=== PATIENT | female | born 1975 | race Caucasian/White ===

== ENCOUNTER → 2018-05-20 14:54 | Outpatient (POV) | payer OTHER, SELFPAY | PROVIDERS: Visit Provider Dermatology | DX: Z00.00 Encounter for general adult medical examination without abnormal findings (principal) ==

== ENCOUNTER → 2018-06-17 08:22 | Outpatient (CLI) | payer OTHER, SELFPAY ==
--- NOTE | 2018-06-17 08:23 | MM_ITS ---
MM Dig screening mamm BI w/CAD ORDERING PHYSICIAN : Teto Ellison MD PATIENT AGE: 42 years GENDER: Female COMPARISON: Previous mammogram March 2016. INDICATION: ITS.REASON: Routine Mammogram Screening 42-year-old with no hormones. Previous ablation.. Noncontributory family history She has had a abscess drainage 2004 right breast. TECHNIQUE: Standard CC and MLO images were obtained. R2 CAD reviewed. FINDINGS: . Moderate breast density bilaterally most evident centrally and towards upper-outer quadrant. RIGHT BREAST:Right breast with no new findings. No dominant mass nor suspicious calcifications. LEFT BREAST:. There is a 11 mm ovoid density which is become evident at the lateral left breast. Likely to 3-4:00 position a recommend 90 degree, MLO and cc spot view to further evaluate margins followed by a left breast ultrasound IMPRESSION: 1.... LEFT BREAST. 11 x 9 mm ovoid density at the lateral left breast..... . Suspect likely cyst at 3-4:00 o'clock position. Recommend additional spot views, with subsequent left breast ultrasound 2.... RIGHT BREAST. Stable.. Unremarkable. Follow-up in one year. BI-RADS Category: 0 Need Additional Imaging Evaluaiton . RECOMMENDED FOLLOW-UP: IMM - IMMEDIATE FOLLOW-UP RECOMMENDED Left breast: additional spot views with left breast ultrasound. (A letter has been sent to the patient regarding results of the study.)
== END ==
PROVIDERS: Family Provider Nurse Practitioner Family; PCP Family Medicine; Visit Provider Nurse Practitioner Obstetrics & Gynecology
DX: Z12.31 Encounter for screening mammogram for malignant neoplasm of breast (principal)
CPT/HCPCS: 77067

== ENCOUNTER → 2018-06-25 15:16 | Outpatient (CLI) | payer OTHER, SELFPAY ==
--- NOTE | 2018-06-25 15:17 | US_ITS ---
MM Dig mamm DX unilat LT CAD, US breast LT complete INDICATION: Old abnormal mammogram ORDERING PHYSICIAN: Teto Ellison MD PATIENT AGE: 42 years COMPARISON: 06/17/2018, 03/25/2016 TECHNIQUE: Problem-solving views performed along with left breast ultrasound FINDINGS: Problem solving views show a persistent asymmetric density in the lateral aspect of the left breast measuring approximately 11 x 6 mm at 3:00 region. The margins are somewhat obscured. This did persist on rolled views. Left breast ultrasound with axilla: No cystic or solid lesions demonstrated with ultrasound. IMPRESSION: Persistent asymmetric density measuring 11 x 6 mm and 3:00 region left breast. Since this is not confirmed to be a cyst by ultrasound, biopsy is recommended by stereotactic approach. Would however, recommend a second look ultrasound before the stereotactic is performed. BI-RADS Category: 4 Suspicious Abnormality-Biopsy Considered RECOMMENDED FOLLOW-UP: BIO - BIOPSY RECOMMENDED (A letter has been sent to the patient regarding results of the study.)
== END ==
PROVIDERS: Family Provider Nurse Practitioner Family; PCP Family Medicine; Visit Provider Nurse Practitioner Obstetrics & Gynecology
DX: Z12.31 Encounter for screening mammogram for malignant neoplasm of breast (principal); R92.2 Inconclusive mammogram
CPT/HCPCS: 76641; 77065

== ENCOUNTER → 2018-07-05 15:04 | Outpatient (POV) | payer OTHER, SELFPAY | PROVIDERS: Family Provider Nurse Practitioner Family; PCP Family Medicine; Visit Provider Physician Assistant | DX: Z00.00 Encounter for general adult medical examination without abnormal findings (principal) ==

== ENCOUNTER → 2018-07-06 09:38 | Outpatient (CLI) | payer OTHER, SELFPAY ==
--- NOTE | 2018-07-06 09:39 | US_ITS ---
US breast LT complete INDICATION: Second look ultrasound, left breast nodule ORDERING PHYSICIAN: Teto Ellison MD PATIENT AGE: 42 years COMPARISON: 06/25/2018 TECHNIQUE: Left breast ultrasound FINDINGS: Previous mammogram demonstrated a 10 x 6 mm nodule in the outer aspect of the left breast. This study was performed as a second look to sure this does not represent a cyst. There is a 4 x 2 mm cyst in the 3:00 position of left breast however this is not concordant with the mammographic findings. No ultrasound abnormalities correspond to the mammographic abnormality. IMPRESSION: Discordant findings. A 3 mm cyst is present at 3:00 with the mammographic abnormality is larger BI-RADS Category: 4 Suspicious Abnormality-Biopsy Considered RECOMMENDED FOLLOW-UP: BIO - BIOPSY RECOMMENDED (A letter has been sent to the patient regarding results of the study.)
== END ==
PROVIDERS: Family Provider Nurse Practitioner Family; PCP Family Medicine; Visit Provider Nurse Practitioner Obstetrics & Gynecology
DX: R92.8 Other abnormal and inconclusive findings on diagnostic imaging of breast (principal)
CPT/HCPCS: 76641

== ENCOUNTER → 2018-07-07 08:53 | Outpatient (CLI) | payer OTHER, SELFPAY ==
--- NOTE | 2018-07-07 | MM_ITS ---
MM stereotactic loc LT, MM clip placement LT ORDERING PHYSICIAN: Teto Ellison MD PATIENT AGE: 43 years Comparison: 06/25/2018 INDICATION: Abnormal mammogram showing indeterminate nodule in the lateral aspect of the left breast PROCEDURE: The patient was given 0.5 mg of Xanax, Lortab 5 mg, and analgesia and minor sedation. The patient was placed on the stereotactic table and the abnormality was localized in the most appropriate projection. The breast was prepped in the routine manner, with sterile prep and the overlying skin anesthetized. A 3 to 4 mm skin incision was performed and the 9 gauge sorus vacuum-assisted core biopsy needle was advanced to the region of the calcification. Pre- and post fire images were obtained. Multiple biopsies were obtained in the region of the mammographic abnormality specifically. Postbiopsy images show the lesion no longer apparent. The patient tolerated the procedure well without complications. Specimen was sent for pathologic analysis. Routine follow-up phone call to patient is to be performed as well. A tiny titanium nonferromagnetic MicroMark was positioned through the mammotome needle into the biopsy site. Pathology: Benign nodular fibrocystic disease. No atypia or malignancy evident IMPRESSION: 1. Successful stereotactic vacuum-assisted core biopsy of the Left breast showing benign findings. 2. Successful placement of a titanium metal MicroMark. 3. No noted complications. Recommend 6 month mammographic follow-up per routine protocol IMPRESSION: Successful removal of described breast calcifications. Left BREAST MAMMOGRAM: Two-view mammogram shows the post surgical defect in the outer aspect of the left breast with the clip in place. The nodule previously noted is smaller.. IMPRESSION: 1. Adequate placement of the MicroMark clip postbiopsy. 2. Postbiopsy changes within the leftbreast.
== END ==
PROVIDERS: Family Provider Nurse Practitioner Family; PCP Family Medicine; Visit Provider Nurse Practitioner Obstetrics & Gynecology
DX: R92.8 Other abnormal and inconclusive findings on diagnostic imaging of breast (principal)
CPT/HCPCS: 19081; 77065

== ENCOUNTER → 2018-08-30 16:47 | Outpatient (CLI) | payer OTHER, SELFPAY ==
[2018-08-30 18:43] LABS: Free Thyroxine Index 1.9 ug/dL (5.93-13.13); T4 (Thyroxine) 5.7 ug/dl (4.7-13.3); Triiodothryronine (T3) Uptake 34 % (31-39)
[2018-09-03 18:40] LABS: Calcitonin <2.0 pg/mL (0.0-5.0)
== END ==
PROVIDERS: Family Provider Nurse Practitioner Family; PCP Family Medicine; Visit Provider Otolaryngology
DX: E01.0 Iodine-deficiency related diffuse (endemic) goiter (principal)
CPT/HCPCS: 36415; 82308; 84436; 84443; 84479

== ENCOUNTER → 2018-09-07 13:28 | Outpatient (CLI) | payer OTHER, SELFPAY ==
--- NOTE | 2018-09-07 13:30 | US_ITS ---
US thyroid HISTORY: Follow-up enlarged thyroid/thyroid nodules ITS.REASON: enlarged thyroid ORDERING PHYSICIAN: Tera Pabon MD PATIENT AGE: 43 years Comparison: None FINDINGS: The right lobe is 4.4 x 1.3 x 2.1 cm. 3 mm isoechoic nodule upper pole medially. 4 x 3 mm hypoechoic nodule mid polar region Solid appearing 12 x 11 mm nodule lower pole probably unchanged but not as well demonstrated on the previous study The left lobe is 4.2 x 1.2 x 1.8 cm. Slightly hypoechoic 9 x 7 mm nodule along the posterior aspect of the left lobe possibly related to parathyroid gland unchanged. 3 mm hypoechoic nodule in the isthmus on the left nonspecific IMPRESSION: Bilateral thyroid nodules as described above with mildly enlarged thyroid gland. The nodules are low level of suspicion for malignancy.
== END ==
PROVIDERS: Family Provider Nurse Practitioner Family; PCP Family Medicine; Visit Provider Otolaryngology
DX: E01.0 Iodine-deficiency related diffuse (endemic) goiter (principal)
CPT/HCPCS: 76536

== ENCOUNTER 2019-02-10 09:27 | Outpatient (CLI) | payer OTHER, SELFPAY ==
--- NOTE | 2019-02-10 09:40 | PC.NURSE ---
HERE FOR EMPLOYEE PHYSICAL REQUIRED BY [facility]
== END 2019-02-10 09:48 | disposition home or self-care (01) ==
LOC: UTC.OUT 09:27
PROVIDERS: PCP Family Medicine; Visit Provider Nurse Practitioner
DX: Z00.00 Encounter for general adult medical examination without abnormal findings (principal)

== ENCOUNTER → 2019-05-31 10:56 | Outpatient (CLI) | payer OTHER, SELFPAY | PROVIDERS: Visit Provider Nurse Practitioner Obstetrics & Gynecology | DX: N39.0 Urinary tract infection, site not specified (principal) | CPT/HCPCS: 87086; 87088; 87186 ==

== ENCOUNTER → 2019-09-20 12:52 | Outpatient (CLI) | payer OTHER, SELFPAY ==
--- NOTE | 2019-09-20 12:54 | US_ITS ---
PROCEDURE: US THYROID CLINICAL INDICATION: goiter Follow-up thyroid nodules, enlarged thyroid gland COMPARISON: THY US thyroid from 09/07/2018 FINDINGS: Right lobe: 4.6 x 1.5 x 1.6 cm. 1 cm slightly hypoechoic well-circumscribed nodule in the lower pole unchanged. Small cystic area in the mid polar region at 4 mm unchanged. Small cystic area in the left aspect of the isthmus benign-appearing. Left lobe is 4.3 x 1.3 x 1.5 cm. 1 cm isoechoic nodule lower pole unchanged. No new nodules evident. IMPRESSION: The enlarged thyroid gland with bilateral nodules which are stable. Dictated by: Jorgito Lopez MD 09/20/2019 16:39 Electronically signed by Jorgito Lopez MD in [place] 09/20/2019 16:39
== END ==
PROVIDERS: PCP Family Medicine; Visit Provider Otolaryngology
DX: E01.0 Iodine-deficiency related diffuse (endemic) goiter (principal)
CPT/HCPCS: 76536

== ENCOUNTER → 2019-09-22 15:56 | Outpatient (CLI) | payer OTHER, SELFPAY ==
[2019-09-22 15:58] LABS: Microscopic, Urine URINE MICROSCOPIC (MICROSCOPIC)
[2019-09-22 16:07] LABS: Appearance,Urine CLEAR (Clear); Bilirubin,Urine Negative (Negative); Blood, Urine Negative (Negative); Color,Urine YELLOW (Yellow); Glucose,Urine (UA) Negative (Negative); Ketones,Urine Negative (Negative); Leukocyte Esterase,Urine TRACE (Negative); Nitrate,Urine POSITIVE (Negative); PH,Urine 6.5 (5.0-8.5); Protein,Urine Negative (Negative); Specific Gravity, Urine 1.025 (1.005-1.030); Urobilinogen,Urine 0.2 EU/dl (0.2)
[2019-09-22 16:18] LABS: Bacteria,Urine 2+ /lpf; RBC,Urine Occasional #/hpf (0-3); WBC,Urine 50-100 #/hpf (0-3)
== END ==
PROVIDERS: Visit Provider Nurse Practitioner
DX: N39.0 Urinary tract infection, site not specified (principal)
CPT/HCPCS: 81001; 87086; 87088; 87186

== ENCOUNTER → 2019-10-04 10:08 | Outpatient (CLI) | payer OTHER, SELFPAY ==
--- NOTE | 2019-10-04 10:11 | US_ITS ---
PROCEDURE: US TRANSVAGINAL CLINICAL INDICATION: US T/V-pelvic pain Pelvic pain and pressure COMPARISON: No exams were available for comparison FINDINGS: The uterus is enlarged at 11.5 x 5 x 6.6 cm. Combined endometrial thickness is 6 mm. There heterogeneous echogenicity of the endometrium with some cystic areas measuring up to 13 mm within the endometrium with skip areas noted. Left ovary is 2.7 x 2.3 cm. Blood flow is present. Right ovary is 2.7 x 1.9 cm. Blood flow noted. There is a small amount of fluid in the cul-de-sac IMPRESSION: Enlarged uterus with post ablation changes and small amount of fluid in the cul-de-sac Dictated by: Jorgito Lopez MD 10/04/2019 18:24 Electronically signed by Jorgito Lopez MD in [place] 10/06/2019 05:18
== END ==
PROVIDERS: PCP Family Medicine; Visit Provider Nurse Practitioner Obstetrics & Gynecology
DX: R10.2 Pelvic and perineal pain (principal)
CPT/HCPCS: 76830

== ENCOUNTER 2020-05-26 14:13 | Emergency (ER) | payer OTHER, SELFPAY ==
[2020-05-26 15:00] VITALS: BP 117/86; PULSE 80; RESP 20; TEMP 36.8; O2SAT 98; BMI 34.9
[2020-05-26 15:03] LABS: UTC Strep Screen (Rapid) Negative (Negative)
--- NOTE | 2020-05-26 15:12 | HMH.EDUTC ---
[facility] – [place] Disposition Clinical Impression: Nausea and vomiting Qualifiers: Vomiting type: unspecified Vomiting Intractability: unspecified Qualified Code(s): R11.2 - Nausea with vomiting, unspecified Sinusitis Qualifiers: Sinusitis location: unspecified location Chronicity: unspecified Qualified Code(s): J32.9 - Chronic sinusitis, unspecified Disposition: Home, Self-Care Condition on Discharge: Good Instructions: Sore Throat, Sinusitis, DI for Sinusitis, DI for Nausea -- Adult, Nausea and Vomiting-Adult, Preventing the Spread of Coronavirus Discharge Instructions, Sinus Headache, DI for Migraine Additional Instructions: ? Drink extra fluids with and between meals. If you have difficulty drinking, try very small amounts of water or suck on ice chips. ? Avoid fruit juices, as these do not replace minerals and can actually increase diarrhea. ? Children and adults can use sports drinks to replenish electrolytes. Younger children and infants should use products formulated for children, like oral rehydration solutions. ? Eat food in small amounts and let your stomach recover. ? Get lots of rest. You may feel tired or weak. ? No greasy or fried foods for the next 24-48 hours BRAT diet Bananas Rice Apples and [place] ? Make sure to drink plenty of liquids ? Return if needed ? Straight to ER if any life threatening symptoms ? You was given an outpatient order for diarrhea panel, please collect specimen and bring back to outpatient lab then call back to the [facility] or follow up with family doctor for results ? Follow up with family doctor in the next 48-72 hours if no improvement or any worsening of symptoms You was given handout for instructions for Quarantine while awaiting your COVID19 test results please follow and self Quarantine. You can call back to the [facility] tomorrow to see if your results are back if not then call back on Thursday NO work until negative result If your result is positive then follow the positive result instructions and no work until negative test *Monitor Temp, Over the counter Motrin or Tylenol as directed/as needed Tylenol every 4 hours and Motrin every 6 hours (as long as your family doctor has told you that you can take it) for fever or pain. and straight to ER if unable to lower temp less than 101.0 after medication given *Warm salt water gargles may help to soothe the throat *Throat Lozenges *Warm fluids like tea with honey may help to soothe the throat *Sleep elevated *Humidifier/Vaporizer *Flonase 2 sprays in each nostril daily but be aware that it may take 2-3 days before you notice improvement Your throat swab was sent for culture. Those results are typically sent to your primary care. Be sure to follow up in 2-3 days with your family doctor/primary care physician if no improvement so they can review those result and treat if necessary. If you don?t have a primary care doctor, I recommend you get one but in the mean time, you will have to return to a walk in clinic Follow up IMMEDIATELY for new or worsening symptoms or no Noticeable improvement over the next 48-72 hours. 911 for difficulty breathing or swallowing Prescriptions: Fluticasone Propionate [Flonase 50mcg nasal spray 16gm] 1 - 2 spr NS DAILY #1 bottle Transmission Status: Received by [facility] Promethazine HCl [Phenergan 12.5mg tablet] 12.5 mg PO Q6H PRN #6 tab PRN Reason: Nausea Transmission Status: Received by [facility] Azithromycin [Z-Elton 250mg Tab] 250 mg PO DIRECTED #6 tab Transmission Status: Received by [facility] Referrals: Dale Avila MD [Primary Care Provider] - As needed Forms: Work/School Release Time of Disposition: 15:31 Medical Decision Making - Piotr Inquiry Pt receiving controlled substance: No Piotr was queried for this patient: No Vital Signs: 05/26/20 15:00 Temperature 98.2 F Temperature Source Oral Pulse Rate [Right Brachial] 80 Respiratory Rate 20 Blood Pressure [Right Arm] 117/86 Blood Pres
[2020-05-26 15:48] VITALS: BP 117/86; PULSE 80; RESP 20; TEMP 36.8; O2SAT 98
[2020-05-27 16:34] LABS: Covid-19 Nasal PCR Sendout UK Not Detected
== END 2020-05-26 15:50 | disposition home or self-care (01) ==
PROVIDERS: Emergency Provider Nurse Practitioner; PCP Family Medicine
DX: J32.9 Chronic sinusitis, unspecified (principal); F41.9 Anxiety disorder, unspecified; Z79.899 Other long term (current) drug therapy; Z88.0 Allergy status to penicillin; Z88.1 Allergy status to other antibiotic agents; Z90.09 Acquired absence of other part of head and neck; Z90.49 Acquired absence of other specified parts of digestive tract
CPT/HCPCS: 87880; 96372; 99202; U0003

== ENCOUNTER → 2020-06-19 08:11 | Outpatient (POV) | payer OTHER, SELFPAY | PROVIDERS: Visit Provider Dermatology | DX: Z00.00 Encounter for general adult medical examination without abnormal findings (principal) ==

== ENCOUNTER → 2020-06-19 11:07 | Outpatient (CLI) | payer OTHER, SELFPAY ==
--- NOTE | 2020-06-19 11:09 | XR_ITS ---
PROCEDURE: XR HAND LT MIN 3V CLINICAL INDICATION: finger pain COMPARISON: No exams were available for comparison FINDINGS: No fracture or dislocation. No lytic or blastic change. There is normal mineralization. The joint spaces are well-preserved. No significant degenerative/arthritic changes. No erosive changes evident. Other findings:There is mild lateral subluxation at the base of the 1st metacarpal. IMPRESSION: Mild lateral subluxation base of 1st metacarpal otherwise negative Dictated b Jorgito Lopez MD 06/19/2020 14:40 Jorgito Lopez MD in [place] 06/19/2020 14:40
--- NOTE | 2020-06-19 11:09 | XR_ITS ---
PROCEDURE: XR WRIST LT MIN 3V CLINICAL INDICATION: wrist pain COMPARISON: No exams were available for comparison FINDINGS: No fracture or dislocation. No lytic or blastic change. There is normal mineralization. There are mild osteoarthritic changes at the 1st metacarpal-carpal joint with minimal anterior subluxation of the 1st metacarpal. There are small well-circumscribed calcific densities lateral to the 1st metacarpal-carpal joint. There is mild prominence the scapholunate space Other findings:None. IMPRESSION: Degenerative changes 1st metacarpal-carpal junction. Mild prominence scapholunate space which could be seen with scapholunate ligament injury. Dictated b Jorgito Lopez MD 06/19/2020 14:39 Jorgito Lopez MD in [place] 06/19/2020 14:39
--- NOTE | 2020-06-19 11:09 | XR_ITS ---
PROCEDURE: XR WRIST RT MIN 3V CLINICAL INDICATION: wrist pain COMPARISON: No exams were available for comparison FINDINGS: No fracture or dislocation. No lytic or blastic change. There is normal mineralization. There are mild osteoarthritic changes at the 1st metacarpal-carpal joint Other findings:None. IMPRESSION: No acute findings. Mild degenerative changes 1st metacarpal carpal junction. There are small calcific densities at this region consistent with loose bodies or calcific debris Dictated b Jorgito Lopez MD 06/19/2020 14:41 Jorgito Lopez MD in [place] 06/19/2020 14:41
--- NOTE | 2020-06-19 11:09 | XR_ITS ---
PROCEDURE: XR HAND RT MIN 3V CLINICAL INDICATION: finger pain COMPARISON: No exams were available for comparison FINDINGS: No fracture or dislocation. No lytic or blastic change. There is normal mineralization. Mild degenerative changes 1st metacarpal-carpal joint Other findings:None. IMPRESSION: Mild degenerative changes 1st metacarpal-carpal joint otherwise negative Dictated b Jorgito Lopez MD 06/19/2020 14:42 Jorgito Lopez MD in [place] 06/19/2020 14:42
== END ==
PROVIDERS: PCP Family Medicine; Visit Provider Orthopaedic Surgery
DX: M79.642 Pain in left hand (principal); M79.641 Pain in right hand; M25.532 Pain in left wrist; M25.531 Pain in right wrist; M79.646 Pain in unspecified finger(s); M65.4 Radial styloid tenosynovitis [de Quervain]
CPT/HCPCS: 73110; 73130

== ENCOUNTER → 2020-07-18 14:00 | Outpatient (CLI) | payer OTHER, SELFPAY ==
[2020-07-21 01:55] LABS: Covid-19 Nasal PCR Sendout Lex Not Detected
== END ==
PROVIDERS: PCP Family Medicine; Visit Provider Internal Medicine Adolescent Medicine
DX: Z03.818 Encounter for observation for suspected exposure to other biological agents ruled out (principal)
CPT/HCPCS: U0004

== ENCOUNTER → 2020-08-03 07:59 | Outpatient (CLI) | payer OTHER, SELFPAY ==
--- NOTE | 2020-08-03 08:01 | MM_ITS ---
PROCEDURE: MM DIG SCREENING MAMM BI W/CAD Digital Breast Tomosynthesis Included CLINICAL INDICATION: SCREENING There is no personal or family history of breast cancer. She has had previous abscess drainage left there is no suspicious lesion and no suspicious microcalcifications. Breast COMPARISON: MG SCBI MM Dig screening mamm BI w/CAD from 06/17/2018 MG DXLT MM Dig mamm DX unilat LT CAD from 06/25/2018 MG STLT MM stereotactic loc LT from 07/07/2018 TECHNIQUE: Standard CC and MLO images and 3D Tomosynthesis was obtained. R2 CAD reviewed. FINDINGS: Scattered fibroglandular densities are seen in both breasts on a background of fatty breast parenchyma. There is probable surgical clip left breast. There is no suspicious lesion and no suspicious microcalcifications. IMPRESSION: Fibrofatty parenchyma with no suspicious lesions seen BI-RAD Category: 2 Benign Finding(s) FOLLOW-UP: 1YR 1 Year Follow-up (A letter has been sent to the patient regarding results of the study.) Dictated by: Dr. Dipak Hughes MD 08/03/2020 14:21 Dr. Dipak Hughes MD in [place] 08/03/2020 14:21
== END ==
PROVIDERS: PCP Family Medicine; Visit Provider Nurse Practitioner Obstetrics & Gynecology
DX: Z12.31 Encounter for screening mammogram for malignant neoplasm of breast (principal)
CPT/HCPCS: 77063; 77067

== ENCOUNTER → 2020-08-20 17:05 | Outpatient (CLI) | payer OTHER, SELFPAY ==
[2020-08-20 17:30] LABS: Basophils # 0.1 K/mm3 (0-0.2); Basophils % 0.7 % (0.1-2.0); Eosinophils # 0.1 K/mm3 (0.0-0.4); Eosinophils % 1.9 % (0.1-12.0); Hematocrit 38.3 % (37.0-47.0); Hemoglobin 13.1 g/dL (12.2-16.2); Mean Corpuscular HGB Conc 34.2 g/dL (31.8-35.4); Mean Corpuscular Hemoglobin 31.7 pg (27.0-31.2); Mean Corpuscular Volume 92.7 fl (81-99); Mean Platelet Volume 8.9 fl (7.4-10.4); Monocytes # 0.4 K/mm3 (0.1-1.0); Monocytes % 6.6 % (1.7-9.3); Neutrophils # 3.1 K/mm3 (1.8-7.8); Neutrophils % 45.8 % (37.0-80.0); Platelet Count 235 K/mm3 (142-424); Red Blood Count 4.14 M/mm3 (4.20-5.40); White Blood Count 6.7 K/mm3 (4.8-10.8)
[2020-08-20 18:13] LABS: Triiodothryronine (T3) Uptake 30 % (23.5-40.5)
[2020-08-20 18:14] LABS: Free Thyroxine Index 1.6 ug/dL (5.93-13.13); T4 (Thyroxine) 5.4 ug/dl (5.53-11.0)
[2020-08-20 18:28] LABS: Chloride 103 mmol/L (98-107); Sodium 138 mmol/L (136-145)
[2020-08-20 18:29] LABS: Potassium 4.4 mmoL/L (3.5-5.1)
[2020-08-20 18:31] LABS: Alanine Aminotransferase 17 U/L (12-78); Alkaline Phosphatase 71 U/L (38-126); Aspartate Amino Transferase 26 U/L (14-36); Bilirubin,Total 0.3 mg/dl (0.2-1.3); Blood Urea Nitrogen 14 mg/dl (7-17); Estimated Glomerular Filt Rate 90 ml/min (>60); GFR (African American) 109 ML/MIN (>60)
[2020-08-20 18:32] LABS: Albumin Level 3.8 g/dl (3.5-5.0); Albumin/Globulin Ratio 1.4 (1.1-1.8); Anion Gap 10.4 mEq/L (5-15); Calcium 8.7 mg/dl (8.4-10.2); Carbon Dioxide 29 mmol/L (22.0-30.0); Globulin 2.7 g/dL (1.3-3.2); Glucose 93 mg/dl (74-100); Total Protein,Serum 6.5 g/dl (6.3-8.2)
[2020-08-22 13:19] LABS: Estradiol 72.3 pg/mL (.); FSH 2.5 mIU/mL (.); LH 1.7 mIU/mL (.)
== END ==
PROVIDERS: Visit Provider Nurse Practitioner Obstetrics & Gynecology
DX: Z01.419 Encounter for gynecological examination (general) (routine) without abnormal findings (principal); N95.1 Menopausal and female climacteric states
CPT/HCPCS: 36415; 80053; 82670; 83001; 83002; 84436; 84443; 84479; 85025

== ENCOUNTER → 2020-09-04 11:26 | Outpatient (POV) | payer OTHER, SELFPAY | PROVIDERS: Visit Provider Otolaryngology | DX: Z00.00 Encounter for general adult medical examination without abnormal findings (principal) ==

== ENCOUNTER → 2020-09-25 12:31 | Outpatient (CLI) | payer OTHER, SELFPAY ==
[2020-09-25 18:29] LABS: Coronavirus 19 IgG Antibody Negative (Negative); Coronavirus 19 IgM Antibody Negative (Negative)
== END ==
PROVIDERS: Visit Provider Nurse Practitioner Obstetrics & Gynecology
DX: Z03.818 Encounter for observation for suspected exposure to other biological agents ruled out (principal)
CPT/HCPCS: 36415; 86328

== ENCOUNTER 2020-09-26 08:10 | Inpatient (IN) | payer OTHER, SELFPAY ==
[2020-09-26] VITALS (10 sets, daily range): BP systolic 95–159; BP diastolic 50–85; PULSE 59–89; RESP 14–19; TEMP 36.7–37.1; O2SAT 86–98; BMI 36.0; BMI 36.9
--- NOTE | 2020-09-26 08:29 | CT_ITS ---
PROCEDURE: CT ABDOMEN PELVIS W CON CLINICAL INDICATION: LLQ abd pain Left lower quadrant abdominal COMPARISON: CT ABDPELW CT ABD PELVIS W/ CONTRAST from 05/14/2015 US US TRANSVAGINAL from 09/26/2020 TECHNIQUE: IV Contrast: 75ML Isovue 370 Oral Contrast None Axial images obtained with sagittal and coronal reformats. All CT scans at the facility use one or more dose reduction, viz: automated exposure control, ma/kV adjustment per patient size (including targeted exams where dose is matched to indication, i.e. head), or iterative reconstruction technique. FINDINGS: LOWER THORAX: There is mild scarring in the right middle lobe. ABDOMEN & PELVIS: A bilobular hypodensity is present in the right hepatic lobe at 13 mm. This has increased in size previously measuring 7 mm. This is indeterminate and may be better evaluated with nonemergent MRI of the liver with hemangioma protocol. The spleen, adrenal glands, pancreas, have an unremarkable appearance. There are small bilateral renal cortical cysts present. No renal or ureteral calculi. No hydronephrosis. There are few small periaortic lymph nodes. These are nonspecific and not significantly changed. No intestinal obstruction or free air. There is a small umbilical hernia which contains fat. Small mesenteric and right lower quadrant nodes are present no evidence of appendicitis. There is focal thickening of the proximal sigmoid colon in the left lower quadrant with stranding of the pericolic fat with associated diverticula consistent with acute diverticulitis. No abscess is apparent. There is a small gas collection in this region of diverticulitis and may only represent gas within a diverticulum versus a contained area of perforation. This is on image number 90 series 3. No distant free air is evident. There is a 4.3 x 4.1 cm cystic area in the left adnexa consistent with an ovarian cyst. This is however immediately inferior to the area of diverticulitis. An abscess is felt to be less likely due to the simple appearance of the cystic area. Follow-up is suggested for confirmation. The cervix is somewhat prominent as before. There is a small amount fluid in the pelvis.. No acute bony findings are evident. IMPRESSION: 1. Acute diverticulitis of the sigmoid colon in the left lower quadrant. There is a small collection of air at this region which may only be due to air within the inflamed diverticulum versus a small contained perforation. No obvious abscess. No distant free air. 2. 4 cm left adnexal cyst immediately inferior to the area of diverticulitis consistent with an ovarian cyst. Abscess is felt to be less likely. Ultrasound confirms that this is represents a ovarian cyst. Follow-up is suggested to confirm stability or resolution. 3. Prominent cervix. 4. Indeterminate right hepatic lesion which is increased in size. Nonemergent MRI with hemangioma protocol may provide further evaluation Dictated by: Jorgito Lopez MD 09/26/2020 10:18 Jorgito Lopez MD in [place] 09/26/2020 10:18
[2020-09-26 08:34] LABS: Microscopic, Urine URINE MICROSCOPIC (MICROSCOPIC)
[2020-09-26 08:36] LABS: Appearance,Urine CLEAR (Clear); Bilirubin,Urine Negative (Negative); Blood, Urine TRACE-L (Negative); Color,Urine YELLOW (Yellow); Glucose,Urine (UA) Negative (Negative); Ketones,Urine Negative (Negative); Leukocyte Esterase,Urine Negative (Negative); Nitrate,Urine POSITIVE (Negative); Protein,Urine Negative (Negative); Specific Gravity, Urine 1.025 (1.005-1.030); Urobilinogen,Urine 0.2 EU/dl (0.2)
[2020-09-26 08:38] LABS: Urine Pregnancy, HCG Qual. Negative (Negative)
--- NOTE | 2020-09-26 08:40 | HMH.EDGENADL ---
ED Disposition Clinical Impression: Sigmoid diverticulitis, Left ovarian cyst Disposition: Admitted as Observation Condition on Discharge: Fair - Critical Care Critical Care Time: No Attestation: On 09/26/20, the high probability of a clinically significant, sudden or life threatening deterioration of the following system(s) required my full and direct attention, intervention and personal management. The time I documented below is in addition to time spent performing reported procedures but includes the following listed in this critical care notation. Medical Decision Making - Medical Records Medical records reviewed: Yes: I reviewed the patient's medical records. - Piotr Inquiry Pt receiving controlled substance: Yes Piotr was queried for this patient: Yes Reference #:: [id number] Risks and benefits of using a controlled substance: were discussed with pt by me Comment: 0 rxs. Vital Signs: 09/26/20 08:13 09/26/20 08:56 09/26/20 10:11 Temperature 98.8 F Temperature Source Oral Pulse Rate [Right Radial] 89 76 68 Respiratory Rate 16 18 18 Blood Pressure [Right Arm] 152/73 H 129/78 117/74 Blood Pressure Mean [Right Arm] 99 95 88 Blood Pressure Source [Right Arm] Automatic Cuff Automatic Cuff Automatic Cuff Blood Pressure Position [Right Arm] Sitting Sitting Sitting 02 Sat by Pulse Oximetry 97 97 96 Oxygen Delivery Method Room Air Room Air Room Air 09/26/20 10:39 09/26/20 11:36 Temperature Temperature Source Pulse Rate [Right Radial] 66 71 Respiratory Rate 18 18 Blood Pressure [Right Arm] 126/81 159/85 H Blood Pressure Mean [Right Arm] 96 109 Blood Pressure Source [Right Arm] Automatic Cuff Automatic Cuff Blood Pressure Position [Right Arm] Sitting 02 Sat by Pulse Oximetry 96 98 Oxygen Delivery Method Room Air Room Air - Lab Data Lab results reviewed: Yes: I reviewed the patient's lab results. Lab Results 09/26/20 08:15: Urine Color Yellow, Urine Appearance Clear, Urine pH 6.0, Ur Specific [place] 1.025, Urine Protein Negative, Urine Glucose (UA) Negative, Urine Ketones Negative, Urine Blood Trace-l, Urine Nitrate Positive, Urine Bilirubin Negative, Urine Urobilinogen 0.2, Ur Leukocyte Esterase Negative, Urine RBC 5-10, Urine WBC 3-5, Ur Squamous Epith Cells 3-5, Urine Bacteria 2+ 09/26/20 08:15: Urine HCG, Qual Negative 09/26/20 08:30: WBC 9.3, RBC 4.27, Hgb 12.6, Hct 39.4, MCV 92.1, MCH 29.4, MCHC 31.9, RDW 12.7, Plt Count 225, MPV 8.3, Neut % (Auto) 71.6, Lymph % (Auto) 20.8, [place] % (Auto) 5.9, Eos % (Auto) 1.4, Baso % (Auto) 0.3, Neut # (Auto) 6.7, Lymph # (Auto) 1.9, [place] # (Auto) 0.6, Eos # (Auto) 0.1, Baso # (Auto) 0.0 09/26/20 08:30: Sodium 138, Potassium 4.0, Chloride 106, Carbon Dioxide 25, Anion Gap 11.0, BUN 10, Creatinine 0.60, Estimated Creat Clear 178, Estimated GFR 108, Est GFR ( Amer) 131, Glucose 105 H, Calcium 8.4, Total Bilirubin 0.6, AST 32, ALT 21, Alkaline Phosphatase 84, Total Protein 7.1, Albumin 4.0, Globulin 3.1, Albumin/Globulin Ratio 1.3, Amylase 62 09/26/20 08:30: Lipase 54 Result diagrams: 09/26/20 08:30 09/26/20 08:30 Orders (Tests/Meds): ED MEDICATIONS Generic Name Dose Route Start Last Admin Trade Name Freq PRN Reason Stop Dose Admin Metronidazole 500 mg in 100 mls @ 100 mls/hr 09/26/20 10:30 09/26/20 10:31 Flagyl 500mg/100ml Ivpb IV 10/10/20 10:29 100 mls/hr Q8H KELLIE Administration Protocol Levofloxacin/Dextrose 750 mg in 150 mls @ 100 mls/hr 09/26/20 10:30 09/26/20 11:06 Levofloxacin 750mg/150ml Premix IV 10/10/20 10:29 100 mls/hr Q24H KELLIE Administration Protocol Sodium Chloride 8 ml 09/26/20 11:43 Sodium Chloride 0.9% 10ml Vial IV 10/26/20 11:42 NEEDED PRN dilute famotidine Discontinued Medications Generic Name Dose Route Start Last Admin Trade Name Freq PRN Reason Stop Dose Admin Belladonna Alkaloids 60 ml 09/26/20 11:43 Gi Cocktail 60ml Udc PO 09/26/20 11:44 ONCE ONE F
[2020-09-26 08:44] LABS: Bacteria,Urine 2+ /lpf
[2020-09-26 08:45] LABS: Basophils % 0.3 % (0.1-2.0); Eosinophils # 0.1 K/mm3 (0.0-0.4); Eosinophils % 1.4 % (0.1-12.0); Hematocrit 39.4 % (37.0-47.0); Hemoglobin 12.6 g/dL (12.2-16.2); Lymphocytes # 1.9 K/mm3 (0.7-4.5); Lymphocytes % 20.8 % (10-50); Mean Corpuscular HGB Conc 31.9 g/dL (31.8-35.4); Mean Corpuscular Hemoglobin 29.4 pg (27.0-31.2); Mean Corpuscular Volume 92.1 fl (81-99); Mean Platelet Volume 8.3 fl (7.4-10.4); Monocytes # 0.6 K/mm3 (0.1-1.0); Monocytes % 5.9 % (1.7-9.3); Neutrophils # 6.7 K/mm3 (1.8-7.8); Neutrophils % 71.6 % (37.0-80.0); Platelet Count 225 K/mm3 (142-424); Red Blood Count 4.27 M/mm3 (4.20-5.40); Red Cell Distribution Width 12.7 % (11.5-17.5); White Blood Count 9.3 K/mm3 (4.8-10.8)
--- NOTE | 2020-09-26 08:47 | PC.NURSE ---
per ER MD he wants pt to have transvaginal ultrasound that was ordered for today as outpatient and then for pt to have CT scan abd/pelvis with IV contrast. Notified rad staff of this, spoke with Camryn
[2020-09-26 08:52] LABS: Chloride 106 mmol/L (98-107); Sodium 138 mmol/L (136-145)
--- NOTE | 2020-09-26 08:52 | US_ITS ---
PROCEDURE: US TRANSVAGINAL CLINICAL INDICATION: llq abd pain COMPARISON: US US TRANSVAGINAL from 10/04/2019 FINDINGS: UTERUS: 11cm x 6cmx 5cm with a combined endometrial thickness of 6.3mm LEFT OVARY: [id number] with a volume of 41.4ml. RIGHT OVARY: [id number] with a volume of 3.9ml. scar is noted along the uterus anteriorly. There is a 4 x 3 cm left ovarian cyst which appears simple. There is an area of heterogeneous echogenicity in the uterine fundus on the right suggesting a small fibroid at 2.5 cm. No cul-de-sac fluid evident. IMPRESSION: 1. Enlarged uterus with possible fibroid. 2. 4 cm left ovarian cyst. Dictated by: Jorgito Lopez MD 09/26/2020 12:13 Jorgito Lopez MD in [place] 09/26/2020 12:13
[2020-09-26 08:55] LABS: Alanine Aminotransferase 21 U/L (12-78); Albumin/Globulin Ratio 1.3 (1.1-1.8); Alkaline Phosphatase 84 U/L (38-126); Amylase 62 U/L (30-110); Aspartate Amino Transferase 32 U/L (14-36); Bilirubin,Total 0.6 mg/dl (0.2-1.3); Blood Urea Nitrogen 10 mg/dl (7-17); Calcium 8.4 mg/dl (8.4-10.2); Carbon Dioxide 25 mmol/L (22.0-30.0); Creatinine Clearance Estimated 178 mL/min (50-200); Estimated Glomerular Filt Rate 108 ml/min (>60); GFR (African American) 131 ML/MIN (>60); Globulin 3.1 g/dL (1.3-3.2); Glucose 105 mg/dl (74-100); Total Protein,Serum 7.1 g/dl (6.3-8.2)
[2020-09-26 08:56] LABS: Lipase 54 U/L (23-300)
--- NOTE | 2020-09-26 08:57 | PC.NURSE ---
pt to radiology
--- NOTE | 2020-09-26 09:44 | PC.NURSE ---
pt return from radiology
--- NOTE | 2020-09-26 10:31 | PC.NURSE ---
dr fofana consulting with dr osei concerning patient and ultrasound/ct findings.
--- NOTE | 2020-09-26 10:38 | PC.NURSE ---
Dr Lewis consulting with Dr Ellison concerning ultrasound/CT findings
--- NOTE | 2020-09-26 10:38 | PC.NURSE ---
Dr Lewis spoke with Dr Ellison
--- NOTE | 2020-09-26 10:57 | PC.NURSE ---
notified ER MD pt reporting Ketorlac not helping with her pain. ER reports he will place orders for pt.
--- NOTE | 2020-09-26 11:31 | PC.NURSE ---
entered room to check on pt, pt sitting up on the of the bed, reporting pain is worse, pt states I feel terrible , pt reports pain is not in epigastric area, states pain feels like a big ball of gas . Notified ER MD, ER MD gave verbal order for pt for pain medication and requested that we contact Dr. Avila to speak about admission.
--- NOTE | 2020-09-26 11:33 | PC.NURSE ---
LORE HERNANDEZ spoke with Dr. Avila at this time
--- NOTE | 2020-09-26 11:33 | PC.NURSE ---
Dr Lewis spoke to Dr Avila for admission
--- NOTE | 2020-09-26 11:35 | PC.NURSE ---
spoke to care management for a room
--- NOTE | 2020-09-26 11:38 | ECG_ITS ---
APPROVED REPORT Exam: Resting ECG HR:66 bpm ECG Measurements Heart Rate 66 AXES RI 146 P 75 QRSd 78 QRS 28 QT 374 T 27 QTc 392 Conclusion Normal sinus rhythm Normal ECG Electronically signed by : Adams Soliman, 09/28/2020 17:04:00
--- NOTE | 2020-09-26 11:43 | PC.NURSE ---
notified ER MD pt continues to reports pain, pt reports pain medication has not helped. Requested that ER MD speak with pt. [id number] MD at
--- NOTE | 2020-09-26 12:00 | PC.NURSE ---
pt reports pain has decreased but is still present, pt laying back on the stretcher resting at this time, at BS. will continue to monitor.
[2020-09-26 12:07] LABS: Coronavirus 19 IgG Antibody Negative (Negative); Coronavirus 19 IgM Antibody Negative (Negative)
--- NOTE | 2020-09-26 12:14 | P.CONPHA_ITS ---
[facility] Pharmacy VTE Monitoring - Patient Demographics Admission date: 09/26/20 Report Date: 09/26/20 Time: 12:14 Allergies/Adverse Reactions: Patient Allergies cefaclor [From Ceclor] Allergy (Verified 09/24/20 08:53) Penicillins Allergy (Verified 09/24/20 08:53) Height: 1.63 m Weight: 95.254 kg Patient Problems: Current Active Problems Sigmoid diverticulitis (Acute) Left ovarian cyst (Acute) - VTE Risk Labs: VTE Related Lab Results Hgb 12.6 g/dL (12.2-16.2) 09/26/20 08:30 Hct 39.4 % (37.0-47.0) 09/26/20 08:30 Plt Count 225 K/mm3 (142-424) 09/26/20 08:30 BUN 10 mg/dl (7-17) 09/26/20 08:30 Creatinine 0.60 mg/dl (0.52-1.04) 09/26/20 08:30 Estimated Creat Clear 178 mL/min (50-200) 09/26/20 08:30 - Prophylaxis VTE Prophylaxis Ordered?: Yes Types of VTE Prophylaxis: TEDS Knee High Location of Applied Device: Bilateral Lower Extremeties
--- NOTE | 2020-09-26 12:36 | PC.NURSE ---
report given to teja mcneil at this time.
--- NOTE | 2020-09-26 13:05 | HMH.PHAINT ---
MEDICATION RECONCILIATION COMPLETED ON PATIENT USING EXTERNAL FILL HISTORY FROM PHARMACY. -LIA ORTEGA, HECTORD
--- NOTE | 2020-09-26 13:58 | PC.NURSE ---
Family at bedside. RR currently 12 with apnea 8-9 seconds of apnea. No distress. Will cont to mx.
--- NOTE | 2020-09-26 15:38 | PC.NURSE ---
Have contacted Dr. Avila in re to order for zofran if pt needs. She stated she was feeling slightly nauseous and having some pain, but didn't want to take anything at this time. Awaiting cb at this time. CB in reach. NS infusing at 50 ml/hr. Remains safe. Did apply 02 at 2 L NC, r/t sats 86% on ra. 02 on 2 L 94%. Lungs cta, s1,s2. States she had a normal bm yesterday and bs hypoactive.
--- NOTE | 2020-09-26 15:47 | HMH.HP ---
*Admission Date: 09/26/20 *Chief complaint: Left lower quadrant abdominal pain *History of present illness: 45-year-old female presented to the emergency department with 72 hours of myalgias and left lower quadrant abdominal pain. Pain began on September 23. Patient believes she may have an ovarian cyst or ovarian problem. She saw her leasing sales consultant on September 24. Patient was told she had some abnormal thyroid functions and a pelvic ultrasound was arranged. Patient's pain progressed and it began to ascend up the left side of the abdomen. Ultimately pain became so severe she presented to the emergency department. Work-up was begun in the emergency department that included the pelvic ultrasound along with exam, labs, CT scan of the abdomen and pelvis. CT scan of the abdomen and pelvis revealed a left ovarian cyst as well as sigmoid diverticulitis. Patient seemed rather stable in the emergency department and consideration was given to discharging the patient home when she had an acute intensification of pain that radiated now up into the epigastrium. This seem to be made worse with administration of morphine. Patient was given Dilaudid and antiemetics. Because of the patient's level of pain decision was made to admit her for observation and continue IV antibiotics along with antiemetics and pain control. Patient denies fevers. She has had some nausea but no vomiting. She denies diarrhea or constipation. [facility] History I have reviewed the patient's past medical history: Yes Medical History: Reports:: Anxiety Denies:: Cancer, Diabetes Mellitus Type 1, Diabetes Mellitus Type 2, MRSA *Have you ever received a pneumonia vaccine?: No *Have you received a flu vaccine this season?: Yes Laterality Cases: Bilateral: Tonsillectomy Other Surgeries: Yes: Cholecystectomy, , Diagnostic Lap, Other Amputation: No Fractures: No - *Social History Last grade of school completed: Some college Smoking Status: Never smoker Alcohol Intake: never Alcohol Intake Frequency:: holidays/special occasions only Substance Use Type: denies use *Occupational Status:: employed Housing: house Household Members: spouse *Travel in the last 8 weeks: None - Psychiatric History Pschychiatric History:: Reports:: Anxiety Family Hx:: Cancer, Diabetes, Thyroid Disorder Review of Systems - Constitutional Reports body ache(s), Denies chills, Denies fever(s), Denies malaise, Denies night sweats - *Cardiovascular Denies chest pain, Denies chest pain at rest - *Respiratory Denies change in phlegm color - *Gastrointestinal Reports abdominal pain, Reports bloating, Reports heartburn, Denies change in bowel habits, Denies change in stools, Denies constipation, Denies difficulty swallowing, Denies feeling full early, Denies excessive passing of gas, Denies incontinent of stools, Denies heartburn Meds Home Medications Medication Instructions Recorded Confirmed Type Escitalopram Oxalate [Lexapro] 20 mg PO DAILY 09/08/19 09/26/20 History Omeprazole [Omeprazole 20mg 20 mg PO DAILY 05/26/20 09/26/20 History Capsule] Ciprofloxacin HCl [Ciprofloxacin 500 mg PO BID #20 tab 09/26/20 Rx 500mg Tab] Hydrocod/Acet 5/325 mg [[place] 1 tab PO Q6HP PRN #10 tab 09/26/20 Rx 5/325mg tablet] Levothyroxine Sodium [Synthroid 50 mcg PO DAILY 09/26/20 09/26/20 History 50mcg (0.05mg) tab] metroNIDAZOLE [Flagyl] 500 mg PO TID #30 tab 09/26/20 Rx Allergies Allergy/AdvReac Type Severity Reaction Status Date / Time cefaclor [From [facility]] Allergy Verified 09/24/20 08:53 Penicillins Allergy Verified 09/24/20 08:53 Exam Vital signs and Labs for Last 24 Hours: Temp Pulse Resp BP Pulse Ox 98.0 F 64 14 124/76 94 L 09/26/20 13:15 09/26/20 13:15 09/26/20 13:15 09/26/20 13:15 09/26/20 13:46 Laboratory Results - last 24 hr 09/26/20 08:15: Urine Color Yellow, Urine Appearance Clear, Urine pH 6.0, Ur Specific [place] 1.025, Urine Protein
--- NOTE | 2020-09-26 19:14 | PC.NURSE ---
report given to pratik
[2020-09-27 04:00] VITALS: BP 114/69; PULSE 51; RESP 18; TEMP 36.8; O2SAT 96
[2020-09-27 05:41] VITALS: BMI 35.8
--- NOTE | 2020-09-27 06:17 | PC.NURSE ---
Pt has slept well this shift. Denies soa/pain at this time. Pt reports that pain is somewhat improved since admission. No nausea noted. Lung sounds remain clear.
[2020-09-27 06:56] LABS: Basophils % 0.5 % (0.1-2.0); Eosinophils # 0.1 K/mm3 (0.0-0.4); Eosinophils % 2.5 % (0.1-12.0); Hematocrit 36.5 % (37.0-47.0); Lymphocytes # 1.9 K/mm3 (0.7-4.5); Lymphocytes % 39.9 % (10-50); Mean Corpuscular HGB Conc 31.1 g/dL (31.8-35.4); Mean Corpuscular Hemoglobin 29.6 pg (27.0-31.2); Mean Corpuscular Volume 95.2 fl (81-99); Mean Platelet Volume 8.5 fl (7.4-10.4); Monocytes # 0.3 K/mm3 (0.1-1.0); Monocytes % 6.2 % (1.7-9.3); Neutrophils # 2.5 K/mm3 (1.8-7.8); Neutrophils % 50.9 % (37.0-80.0); Platelet Count 204 K/mm3 (142-424); Red Blood Count 3.83 M/mm3 (4.20-5.40); Red Cell Distribution Width 12.8 % (11.5-17.5); White Blood Count 4.9 K/mm3 (4.8-10.8)
[2020-09-27 07:00] LABS: Hemoglobin 11.3 g/dL (12.2-16.2)
--- NOTE | 2020-09-27 07:54 | P.PN_ITS ---
Internal Medicine - PN: Subj *Date: 09/27/20 *Time: 07:54 Interval history: Patient reports improvement in her left lower quadrant abdominal pain. She is attempting to eat and drink this morning a liquid diet Exam Vital signs and Labs for Last 24 Hours: Temp Pulse Resp BP Pulse Ox 98.3 F 51 L 18 114/69 96 09/27/20 04:00 09/27/20 04:00 09/27/20 04:00 09/27/20 04:00 09/27/20 04:00 Laboratory Results - last 24 hr 09/26/20 08:15: Urine Color Yellow, Urine Appearance Clear, Urine pH 6.0, Ur Specific [place] 1.025, Urine Protein Negative, Urine Glucose (UA) Negative, Urine Ketones Negative, Urine Blood Trace-l, Urine Nitrate Positive, Urine Bilirubin Negative, Urine Urobilinogen 0.2, Ur Leukocyte Esterase Negative, Urine RBC 5-10, Urine WBC 3-5, Ur Squamous Epith Cells 3-5, Urine Bacteria 2+ 09/26/20 08:15: Urine HCG, Qual Negative 09/26/20 08:30: WBC 9.3, RBC 4.27, Hgb 12.6, Hct 39.4, MCV 92.1, MCH 29.4, MCHC 31.9, RDW 12.7, Plt Count 225, MPV 8.3, Neut % (Auto) 71.6, Lymph % (Auto) 20.8, [place] % (Auto) 5.9, Eos % (Auto) 1.4, Baso % (Auto) 0.3, Neut # (Auto) 6.7, Lymph # (Auto) 1.9, [place] # (Auto) 0.6, Eos # (Auto) 0.1, Baso # (Auto) 0.0 09/26/20 08:30: Sodium 138, Potassium 4.0, Chloride 106, Carbon Dioxide 25, Anion Gap 11.0, BUN 10, Creatinine 0.60, Estimated Creat Clear 178, Estimated GFR 108, Est GFR ( Amer) 131, Glucose 105 H, Calcium 8.4, Total Bilirubin 0.6, AST 32, ALT 21, Alkaline Phosphatase 84, Total Protein 7.1, Albumin 4.0, Globulin 3.1, Albumin/Globulin Ratio 1.3, Amylase 62 09/26/20 08:30: Lipase 54 09/26/20 08:30: SARS-CoV-2 IgG Ab (Rapid) Negative, SARS-CoV-2 IgM Ab (Rapid) Negative 09/27/20 06:17: WBC 4.9 D, RBC 3.83 L, Hgb 11.3 L D, Hct 36.5 L, MCV 95.2, MCH 29.6, MCHC 31.1 L, RDW 12.8, Plt Count 204, MPV 8.5, Neut % (Auto) 50.9, Lymph % (Auto) 39.9, [place] % (Auto) 6.2, Eos % (Auto) 2.5, Baso % (Auto) 0.5, Neut # (Auto) 2.5, Lymph # (Auto) 1.9, [place] # (Auto) 0.3, Eos # (Auto) 0.1, Baso # (Auto) 0.0 I & O for Last 24 hours: Intake & Output 09/24/20 09/25/20 09/26/20 09/27/20 11:59 11:59 11:59 11:59 Intake Total 1913 Balance 1913 Weight 215 lb 5 oz 210 lb - Constitutional no acute distress - *Routine Respiratory Exam Present: CTA bilaterally - *Routine Cardiovascular Exam Present: RRR - *Routine Abdominal Exam Comments: Abdomen is soft with left lower quadrant tenderness to palpation. Patient also has mild epigastric tenderness to palpation. Bowel sounds are present Assessment and Plan (1) Sigmoid diverticulitis Status: Acute Category: Medical Code(s): K57.32 - Diverticulitis of large intestine without perforation or abscess without bleeding (2) Left ovarian cyst Status: Acute Category: Medical Code(s): N83.202 - Unspecified ovarian cyst, left side - Assessment and plan all Dx Assessment and Plan for all problems:: Continue IV antibiotics
[2020-09-27 08:00] VITALS: BP 116/75; PULSE 64; RESP 18; TEMP 36.7; O2SAT 95
--- NOTE | 2020-09-27 10:14 | HMH.PHAINT ---
Confirmed home medication list with [facility] pharmacy and patient. Patient never started antibiotics called in from ER, got admitted instead.
[2020-09-27 16:00] VITALS: BP 121/80; PULSE 60; RESP 19; TEMP 36.8; O2SAT 98
--- NOTE | 2020-09-27 18:25 | PC.NURSE ---
Pt has been stable this shift. Tolerates a full liquid diet. Acute abd pain has been tolerable. Gets OOB without assistance. No issues noted.
--- NOTE | 2020-09-27 19:16 | PC.NURSE ---
report given to pratik
[2020-09-27 20:52] VITALS: BP 114/65; PULSE 57; RESP 18; TEMP 37; O2SAT 97
--- NOTE | 2020-09-28 02:30 | PC.NURSE ---
Initial assessment this shift found pt to have generalized non-pitting edema. Pt reported feeling very bloated. IVF held for 6 hours. IVF then restarted. Pt reported feeling much better after fluids were held. Lung sounds remain clear. Denies soa. Pt reports having some mild pain, but declines pharmaceutical intervention. UOP adequate.
[2020-09-28 04:26] VITALS: BP 101/63; PULSE 59; RESP 16; TEMP 36.6; O2SAT 100
[2020-09-28 04:51] VITALS: BMI 37.0
--- NOTE | 2020-09-28 07:07 | HMH.DCSUM ---
General - General Admission date:: 09/26/20 Discharge date: 09/28/20 HPI HPI: 45-year-old female presented to the emergency department with 72 hours of myalgias and left lower quadrant abdominal pain. Pain began on September 23. Patient believes she may have an ovarian cyst or ovarian problem. She saw her topper packer on September 24. Patient was told she had some abnormal thyroid functions and a pelvic ultrasound was arranged. Patient's pain progressed and it began to ascend up the left side of the abdomen. Ultimately pain became so severe she presented to the emergency department. Work-up was begun in the emergency department that included the pelvic ultrasound along with exam, labs, CT scan of the abdomen and pelvis. CT scan of the abdomen and pelvis revealed a left ovarian cyst as well as sigmoid diverticulitis. Patient seemed rather stable in the emergency department and consideration was given to discharging the patient home when she had an acute intensification of pain that radiated now up into the epigastrium. This seem to be made worse with administration of morphine. Patient was given Dilaudid and antiemetics. Because of the patient's level of pain decision was made to admit her for observation and continue IV antibiotics along with antiemetics and pain control. Patient denies fevers. She has had some nausea but no vomiting. She denies diarrhea or constipation. Hospital Course Hospital Course: Patient was admitted and started on IV Levaquin and Flagyl. Patient began to show signs of improvement by the morning of September 27. Diet was advanced to a full liquid diet which patient tolerated without increase in nausea, abdominal pain, bloating. Patient ambulated. Patient did not have a bowel movement but was passing flatus without pain. Patient's pain improved gradually and on the morning of the tenderness had improved enough that patient could be discharged. She was now ambulating without pain. White blood cell count was never elevated. Patient remained afebrile during hospitalization. Patient was discharged home. Patient will follow-up in the office in 10 days. Patient had originally been prescribed a course of antibiotics as an outpatient and she will finish this course of antibiotics (Cipro and Flagyl) Objective Vital signs: Temp Pulse Resp BP Pulse Ox 97.9 F 59 L 16 101/63 L 100 09/28/20 04:26 09/28/20 04:26 09/28/20 04:26 09/28/20 04:26 09/28/20 04:26 no acute distress - *Routine Respiratory Exam Present: CTA bilaterally - *Routine Cardiovascular Exam Present: RRR - *Routine Abdominal Exam Present: tenderness Comments: Minimal left lower quadrant tenderness Results Labs on day of discharge: Labs from last 24 hours 09/26/20 08:15 Urine Color Yellow Urine Appearance Clear Urine pH 6.0 Ur Specific [place] 1.025 Urine Protein Negative Urine Glucose (UA) Negative Urine Ketones Negative Urine Blood Trace-l Urine Nitrate Positive Urine Bilirubin Negative Urine Urobilinogen 0.2 Ur Leukocyte Esterase Negative Urine RBC 5-10 Urine WBC 3-5 Ur Squamous Epith Cells 3-5 Urine Bacteria 2+ Preliminary micro results at discharge 09/26/20 08:15 Urine Culture - Preliminary Urine,Clean Catch Gram Negative Rods DS: Diagnosis - Discharge Diagnosis (1) Sigmoid diverticulitis Status: Acute (2) Left ovarian cyst Status: Acute Discharge Plan - Patient Discharge Instructions ACTIVITY: Continue current activity DIET: continue same diet - Follow up Plan Follow up with: Dale Avila MD [Primary Care Provider] - 10 days Home Medications: Home Medications Medication Instructions Recorded Confirmed Type Escitalopram Oxalate [Lexapro] 20 mg PO DAILY 09/08/19 09/26/20 History Omeprazole [Omeprazole 20mg 20 mg PO DAILY 05/26/20 09/26/20 History Capsule] Levothyroxine Sodium [Synthroid 50 mcg PO DAILY
[2020-09-28 08:00] VITALS: BP 115/79; PULSE 64; RESP 18; TEMP 36.8; O2SAT 98
== END 2020-09-28 09:00 | disposition home or self-care (01) | DRG 392 ==
LOC: ER 11:33 → 2ND 13:02
PROVIDERS: Admitting Provider Family Medicine; Emergency Provider Emergency Medicine; PCP Family Medicine; Visit Provider Family Medicine
DX: K57.32 Diverticulitis of large intestine without perforation or abscess without bleeding (principal); N83.202 Unspecified ovarian cyst, left side; Z88.0 Allergy status to penicillin; Z88.1 Allergy status to other antibiotic agents; Z79.899 Other long term (current) drug therapy
CPT/HCPCS: 74177; 76830; 80053; 81001; 81025; 82150; 83690; 85025; 86328; 87086; 87088; 87186; 90732; 93005; 96365; 96367; 96375; 96376; 99284; J1956; J2405; Q9967

== ENCOUNTER → 2020-10-19 09:45 | Outpatient (CLI) | payer OTHER, SELFPAY ==
--- NOTE | 2020-10-19 09:49 | US_ITS ---
PROCEDURE: US THYROID CLINICAL INDICATION: THYROID NODULE Follow-up thyroid nodules COMPARISON: US US THYROID from 09/20/2019 FINDINGS: Isthmus is unremarkable at 2.5 mm. The right lobe measures 4.4 x 1.4 x 1.9 cm. Posteriorly there is a 16 x 7 mm area of decreased echogenicity overall not significantly changed. Other smaller nodular areas are present on the right consistent with small cyst. The left lobe is 4.1 x 1.1 x 1.5 cm. 812 x 7 mm isoechoic nodules present posteriorly on the left not significantly changed. There is a 3 mm hypoechoic nodule in the lower pole which may be due to small cyst. IMPRESSION: No significant change bilateral thyroid nodules with mildly enlarged thyroid gland. There is a new hypoechoic nodule in the lower pole on the left possibly due to small cyst at 3 mm. Continued follow-up suggested. Dictated by: Jorgito Lopez MD 11/19/2020 13:26 Jorgito Lopez MD in [place] 11/19/2020 13:26
== END ==
PROVIDERS: PCP Family Medicine; Visit Provider Otolaryngology
DX: E04.1 Nontoxic single thyroid nodule (principal)
CPT/HCPCS: 76536

== ENCOUNTER → 2020-11-03 14:42 | Outpatient (CLI) | payer OTHER, SELFPAY ==
[2020-11-03 16:07] LABS: Coronavirus 19 IgG Antibody Negative (Negative); Coronavirus 19 IgM Antibody Negative (Negative)
== END ==
PROVIDERS: PCP Family Medicine; Visit Provider Internal Medicine Gastroenterology
DX: Z01.818 Encounter for other preprocedural examination (principal); Z03.818 Encounter for observation for suspected exposure to other biological agents ruled out; Z12.11 Encounter for screening for malignant neoplasm of colon
CPT/HCPCS: 36415; 86328

== ENCOUNTER 2020-11-05 12:10 | Day surgery (SDC) | payer OTHER, SELFPAY ==
[2020-10-31 13:32] VITALS: BMI 35.2
[2020-11-05 12:30] VITALS: BP 130/87; PULSE 86; RESP 18; TEMP 36.4; O2SAT 95
[2020-11-05 12:41] LABS: Urine Pregnancy, HCG Qual. Negative (Negative)
--- NOTE | 2020-11-05 13:33 | P.PCN_ITS ---
[facility] Procedure Note Procedure Note:: Colonoscopy Procedure Report: Colonoscopy with cold biopsies Endoscopist: Mahendra Tavera II, MD Referring physician: Dale Avila MD Date of Procedure: November 05, 2020 Equipment: Olympus 180 variable stiffness pediatric colonoscope Sedation: MAC sedation Indication: Mrs. Larkin is a 45-year-old female with acute diverticulitis for which she was hospitalized more than a month ago. She received a 10-day course of ciprofloxacin and Flagyl. She presented with left lower quadrant abdominal pain, bloating and some gassiness. Her abdominal pain and bloating have completely resolved. She reports no rectal bleeding, abdominal pain, weight loss or change in bowel habits. She reports no family history of colon cancer. This is her first colonoscopy performed for diagnostic purposes. This was complicated by the presence of a 4 cm ovarian cyst. Procedure: Prior to the procedure, a history and physical exam was performed, and patient's medications and allergies were reviewed. The risks, benefits and alternatives of the sedation and procedure were discussed with the patient. All questions w ere answered and informed consent was obtained. The patient was brought to the procedure room. Patient identification and proposed procedure were verified by the physician and the nurse. The patient was placed in a left lateral decubitus position and the scope was passed under direct vision. Throughout the procedure, the patient's blood pressure, pulse, and oxygen saturations were monitored continuously. The colonoscopy was accomplished without difficulty. The patient tolerated the procedure well. Findings: On digital rectal examination there was normal rectal tone. There were no external hemorrhoids. The colonoscope was introduced through the anal canal to the rectum and advanced to the cecum. The ileocecal valve and appendiceal orifice were identified. The scope was advanced a short distance into the ileum. There was some mild ileitis of the ileum so cold biopsies were obtained. The scope was then withdrawn into the colon. The cecum, ascending and transverse colon and mucosa were grossly normal. There were scattered diverticuli throughout the descending and sigmoid colon (LEFT colon). The rectum itself was normal. Upon retroflexion within the rectum there were grade 1 internal hemorrhoids. The preparation was excellent throughout with [place] Preparation Score of 9. The cecal time was 12 minutes. Impression: 1. Left-sided diverticulosis 2. Grade 1 internal hemorrhoids Plan: I would encourage continuation of dietary measures and bulk fiber supplementation. She did have uncomplicated diverticulitis. I will discuss the findings with the patient and family. The patient will not require screening/surveillance colonoscopy again for 10 years by ACS guidelines.
--- NOTE | 2020-11-05 13:42 | HMH.ANESCL ---
[facility] Anesthesia Checklist - Structural Data Admitted From: Home Planned Operative Procedure/s: egd Consent for Planned Operative Procedure(s) Verified: Yes - Airway Assessment C-Spine Mobility Assessed: Yes TMJ Mobility Assessed: Yes Dentition: Good Dentition - Neurological Assessment Level of Consciousness: Awake, Alert, Appropriate - Anesthesia Plan Anesthesia Risk discussed: Yes Anesthesia Plan: Verified ASA Class: II Anesthesia Type: MAC [facility] History I have reviewed the patient's past medical history: Yes Medical History: Reports:: Anxiety Denies:: Cancer, Diabetes Mellitus Type 1, Diabetes Mellitus Type 2, Internal Pacemaker, MRSA, Seizures *Have you ever received a pneumonia vaccine?: Yes *Have you received a flu vaccine this season?: Yes Anesthesia experience/problems:: none Laterality Cases: Bilateral: Tonsillectomy Other Surgeries: Yes: Cholecystectomy, , Diagnostic Lap, Other. No: Pacemaker Amputation: No Fractures: Yes - *Social History Last grade of school completed: Advanced degree Smoking Status: Never smoker Alcohol Intake: current Alcohol Intake Frequency:: a few times a month Substance Use Type: denies use *Occupational Status:: employed Housing: house Household Members: spouse *Travel in the last 8 weeks: None - Psychiatric History Pschychiatric History:: Reports:: Anxiety Family Hx:: Cancer, Diabetes, Thyroid Disorder
[2020-11-05 14:00] VITALS: BP 94/62; PULSE 76; RESP 18; TEMP 36.3; O2SAT 91
[2020-11-05 14:10] VITALS: BP 97/68; PULSE 67; RESP 18; O2SAT 93
[2020-11-05 14:19] VITALS: BP 116/73; PULSE 67; RESP 18; O2SAT 93
[2020-11-05 14:35] VITALS: BP 118/71; PULSE 59; RESP 18; O2SAT 97
== END 2020-11-05 14:42 | disposition home or self-care (01) ==
LOC: OUTP 12:11
PROVIDERS: PCP Family Medicine; Visit Provider Internal Medicine Gastroenterology
PROC: 0DJD8ZZ Inspection of Lower Intestinal Tract, Via Natural or Artificial Opening Endoscopic (ICD-10-PCS; CPT 45378; principal; 2020-11-05 13:00)
DX: K57.30 Diverticulosis of large intestine without perforation or abscess without bleeding; K64.0 First degree hemorrhoids; F41.9 Anxiety disorder, unspecified; Z80.9 Family history of malignant neoplasm, unspecified; Z83.3 Family history of diabetes mellitus; Z83.49 Family history of other endocrine, nutritional and metabolic diseases; Z88.0 Allergy status to penicillin; Z88.1 Allergy status to other antibiotic agents; Z88.6 Allergy status to analgesic agent
CPT/HCPCS: 45380; 81025

== ENCOUNTER 2020-11-21 11:00 | Outpatient (RCR) | payer OTHER, SELFPAY ==
--- NOTE | 2020-10-15 16:20 | HMH.OTOPEV ---
OT Inpatient Evaluation Rehab OT Outpatient Eval Start: 10/15/20 16:08 Freq: Status: Active Protocol: Document 10/15/20 16:09 SARAI (Rec: 10/15/20 16:20 LCELO [id number]) Electronically Signed By Kat Sharpe OT 10/15/20 16:09 Outpatient Therapy Subjective History Subjective History 45 year old female referred to OP OT skilled services for left thumb pain. Patient verbalize having left thumb pain for the past 6-8 months. Patient has been wearing L thumb spica spint for the past several months at night with little relief. Patient's L hand MP, PIP and DIP WFL. Chief Complaint Pain,Decreased Implementation Advisor Strength Symptom Type Ache Symptoms Relieved By Nothing Symptoms Aggravated By Physical Activity Prior Functional Limitations None Current Functional Limitations Reaching Symptom Description Constant and Continuous Level of pain today (0-10) 1 Pain scale - at its best (0-10) 1 Pain scale - at its worst (0-10) 3 Wrist/Hand Eval Implementation Advisor/Pinch Strength Right Implementation Advisor Strength Measurement (lbs) 55 Left Implementation Advisor Strength Measurement (lbs) 35 Special Tests Wrist [place] Test Positive Left OT Outpatient Assessment Impairments Problems/Impairments Impaired Range of Motion, Impaired Strength,Impaired Endurance,Subjective C/O Pain Prognosis Rehab Potential Good Clinical Impression Consistent with Diagnosis Yes Short Term Goals Number of Weeks 2 Increase Strength Yes: L residential coordinator strength to 40# Increase Endurance Yes: Increase endurance to 30 mins of exer prior to RB Decrease Subjective C/O Pain Yes: 2/10 at worst Patient to be Ind w/ Advanced HEP Yes: Strengthening Assisted Goals Number of Weeks 4 Increase Strength Yes: L hand residential coordinator: 50# Increase Endurance Yes: Increase endurance to 40 mins of exer prior to RB Decrease Subjective C/O Pain Yes: 1/10 at worst Patient to be Ind w/ Advanced HEP Yes: Advance strengthening Outpatient Therapy Plan of Care Treatment Plan May Include Therapeutic Exercise Including Home Yes Exercise Program Manual Therapy Techniques Yes Therapeutic Activities to Return to Yes Previous Functional/Work Level Thermal Modalities Yes Electrical Stimulation Yes Ultrasound/Phonophoresis Yes Iontophoresis Yes Ev
== END 2020-11-21 11:05 | disposition home or self-care (01) ==
LOC: OT 11:00
PROVIDERS: Visit Provider Orthopaedic Surgery
DX: M65.4 Radial styloid tenosynovitis [de Quervain] (principal)
CPT/HCPCS: 97014; 97035; 97140; 97164; 97165; 97530; G0283

== ENCOUNTER → 2021-01-17 10:52 | Outpatient (CLI) | payer OTHER, SELFPAY ==
--- NOTE | 2021-01-17 10:52 | US_ITS ---
PROCEDURE: US TRANSVAGINAL CLINICAL INDICATION: Followup on ovarian cysts and bleeding COMPARISON: US US TRANSVAGINAL from 09/26/2020 FINDINGS: UTERUS: 11cm x 6cmx 6cm with a combined endometrial thickness of 12.2mm LEFT OVARY: [id number] with a volume of 5ml. RIGHT OVARY: [id number] with a volume of 15.7ml. Endometrium has an unusual appearance with thickening of the endometrium and a small amount fluid within the endometrial canal. There is thickening within the endometrium with a small amount of fluid is present both the fundal region and body of the uterus. The small cystic areas are not contiguous with 1 another. These may represent post ablation changes. There remains a 2.9 x 3.1 cm fibroid in the fundus of the uterus. There is a 2.5 cm right ovarian cyst. Previously noted left ovarian cyst is no longer apparent. No cul-de-sac fluid evident. IMPRESSION: Unusual appearance of the uterus with endometrial thickening with small fluid collection in both the fundal and body portion. These findings may be due to post ablation changes. Follow-up suggested to confirm resolution. Resolved left ovarian cyst with small 2.5 cm right ovarian cyst noted. Dictated by: Jorgito Lopez MD 01/17/2021 18:15 Jorgito Lopez MD in [place] 01/17/2021 18:15
== END ==
PROVIDERS: PCP Family Medicine; Visit Provider Nurse Practitioner Obstetrics & Gynecology
DX: N83.209 Unspecified ovarian cyst, unspecified side (principal); N93.9 Abnormal uterine and vaginal bleeding, unspecified
CPT/HCPCS: 76830

== ENCOUNTER 2021-03-02 13:58 | Emergency (ER) | payer OTHER, SELFPAY ==
[2021-03-02 13:59] VITALS: BP 134/96; PULSE 95; RESP 18; TEMP 36.8; O2SAT 99; BMI 36.0
--- NOTE | 2021-03-02 14:06 | CT_ITS ---
PROCEDURE: CT ABDOMEN PELVIS W CON CLINICAL INDICATION: RLQ pain Right lower quadrant pain, history of diverticulitis. COMPARISON: CT CT ABDOMEN PELVIS W CON from 09/26/2020 US US TRANSVAGINAL from 01/17/2021 TECHNIQUE: IV Contrast: 75ML Isovue 370 Oral Contrast None Axial images obtained with sagittal and coronal reformats. All CT scans at the facility use one or more dose reduction, viz: automated exposure control, ma/kV adjustment per patient size (including targeted exams where dose is matched to indication, i.e. head), or iterative reconstruction technique. FINDINGS: LOWER THORAX: There are mild atelectatic changes in the right middle lobe. ABDOMEN & PELVIS: Bilobular hypodense lesion right hepatic lobe at 12 mm not significantly changed suggesting a hepatic cyst. Prior cholecystectomy. The spleen, adrenal glands, and pancreas have an unremarkable appearance. The stomach is mildly distended. There is a 10 mm right renal cyst. No renal or ureteral calculi. No hydronephrosis. No evidence of appendicitis. Colonic diverticulosis. No evidence of diverticulitis. No intestinal obstruction or free air. There are some mildly prominent fluid-filled small bowel loops in the upper and mid abdominal region. There is a small umbilical hernia containing fat. The uterus is enlarged with heterogeneous areas of low density centrally suggesting low-density irregular changes in the endometrial canal. Small lobulated low-density changes of the central aspect of the uterus at the fundal area. Cervix also is somewhat prominent. A tampon is in place. No acute bony findings IMPRESSION: 1. Enlarged uterus with heterogeneous appearance of the endometrial canal and multiple lobular areas of decreased attenuation in the fundus of the uterus. The low-density changes in the fundus of the uterus are somewhat more prominent. Cannot exclude the possibility of underlying infection or even uterine carcinoma. Consider gynecological consult. Post ablation changes is also consideration. 2. Possible enteritis. 3. No evidence of appendicitis. Dictated by: Jorgito Lopez MD 03/03/2021 09:02 Jorgito Lopez MD in OV 03/03/2021 09:02
--- NOTE | 2021-03-02 14:14 | HMH.EDGENADL ---
ED Disposition Clinical Impression: Right sided abdominal pain Disposition: Home, Self-Care Condition on Discharge: Fair Instructions: DI for Abdominal Pain-Adult, [place] Diet Additional Instructions: You have been evaluated for right-sided abdominal pain. The CT shows thickening endometrium and diverticulosis without evidence of diverticulitis. Please follow bland diet. Try to have a bowel movement every day, use MiraLAX if needed. Follow-up with your primary care doctor in 1 to 2 days for symptom recheck. Return to the emergency department for any new or worsening symptoms. Referrals: Dale Avila MD [Primary Care Provider] - Time of Disposition: 16:45 - Critical Care Critical Care Time: No Attestation: On 03/02/21, the high probability of a clinically significant, sudden or life threatening deterioration of the following system(s) required my full and direct attention, intervention and personal management. The time I documented below is in addition to time spent performing reported procedures but includes the following listed in this critical care notation. Medical Decision Making - Medical Records Medical records reviewed: Yes: I reviewed the patient's medical records. - Piotr Inquiry Pt receiving controlled substance: No Vital Signs: 03/02/21 13:59 03/02/21 15:02 03/02/21 15:30 Temperature 98.3 F Temperature Source Oral Pulse Rate 82 71 Pulse Rate [Left Radial] 95 H Respiratory Rate 18 Blood Pressure 120/72 126/81 Blood Pressure [Right Arm] 134/96 H Blood Pressure Mean [Right Arm] 108 Blood Pressure Source [Right Arm] Automatic Cuff Blood Pressure Position [Right Arm] Sitting 02 Sat by Pulse Oximetry 99 94 L 96 Oxygen Delivery Method Room Air 03/02/21 16:01 03/02/21 16:30 Temperature Temperature Source Pulse Rate 68 69 Pulse Rate [Left Radial] Respiratory Rate Blood Pressure 109/50 L 166/76 H Blood Pressure [Right Arm] Blood Pressure Mean [Right Arm] Blood Pressure Source [Right Arm] Blood Pressure Position [Right Arm] 02 Sat by Pulse Oximetry 92 L 96 Oxygen Delivery Method - Lab Data Lab Results 03/02/21 14:15: WBC 11.1 H, RBC 4.64, Hgb 13.7, Hct 40.9, MCV 88.2, MCH 29.6, MCHC 33.6, RDW 13.2, Plt Count 238, MPV 8.6, Neut % (Auto) 72.1, Lymph % (Auto) 23.0, [place] % (Auto) 3.0, Eos % (Auto) 1.6, Baso % (Auto) 0.3, Neut # (Auto) 8.0 H, Lymph # (Auto) 2.6, [place] # (Auto) 0.3, Eos # (Auto) 0.2, Baso # (Auto) 0.0 03/02/21 14:15: Sodium 138, Potassium 3.8, Chloride 107, Carbon Dioxide 23, Anion Gap 11.8, BUN 13, Creatinine 0.60, Estimated Creat Clear 178, Estimated GFR 108, Est GFR ( Amer) 131, Glucose 168 H, Calcium 8.8, Total Bilirubin 0.4, AST 25, ALT 19, Alkaline Phosphatase 77, Total Protein 7.1, Albumin 4.2, Globulin 2.9, Albumin/Globulin Ratio 1.4 03/02/21 14:15: Lipase 90 03/02/21 14:30: Urine Color Yellow, Urine Appearance Clear, Urine pH 6.0, Ur Specific [place] 1.020, Urine Protein Negative, Urine Glucose (UA) Negative, Urine Ketones Negative, Urine Blood 2+, Urine Nitrate Negative, Urine Bilirubin Negative, Urine Urobilinogen 0.2, Ur Leukocyte Esterase Negative, Urine RBC 5-10, Urine WBC Occasional, Ur Squamous Epith Cells 10-20, Urine Bacteria None Result diagrams: 03/02/21 14:15 03/02/21 14:15 Orders (Tests/Meds): ED MEDICATIONS Discontinued Medications Generic Name Dose Route Start Last Admin Trade Name Georgeq PRN Reason Stop Dose Admin Iopamidol 75 ml 03/02/21 14:58 03/02/21 14:59 Iopamidol-370 (76%);100ml Bottle IV 03/02/21 14:59 75 ml ONCE ONE Administration Ketorolac Tromethamine 30 mg 03/02/21 14:23 03/02/21 14:23 Ketorolac 30mg/Ml Vial IV 03/02/21 14:24 30 mg ONCE ONE Administration Ondansetron HCl 4 mg 03/02/21 14:06 03/02/21 14:17 Ondansetron 4mg/2ml Vial IV 03/02/21 14:07 4 mg ONCE ONE Administration Sodium Chloride 10 ml 03/02/21 14:58 03/02/21 14:59 Sodium Chloride 0.9%
[2021-03-02 14:26] LABS: Basophils % 0.3 % (0.1-2.0); Eosinophils # 0.2 K/mm3 (0.0-0.4); Eosinophils % 1.6 % (0.1-12.0); Hematocrit 40.9 % (37.0-47.0); Hemoglobin 13.7 g/dL (12.2-16.2); Lymphocytes # 2.6 K/mm3 (0.7-4.5); Mean Corpuscular HGB Conc 33.6 g/dL (31.8-35.4); Mean Corpuscular Hemoglobin 29.6 pg (27.0-31.2); Mean Corpuscular Volume 88.2 fl (81-99); Mean Platelet Volume 8.6 fl (7.4-10.4); Monocytes # 0.3 K/mm3 (0.1-1.0); Neutrophils % 72.1 % (37.0-80.0); Platelet Count 238 K/mm3 (142-424); Red Blood Count 4.64 M/mm3 (4.20-5.40); Red Cell Distribution Width 13.2 % (11.5-17.5); White Blood Count 11.1 K/mm3 (4.8-10.8)
[2021-03-02 14:29] LABS: Chloride 107 mmol/L (98-107); Sodium 138 mmol/L (136-145)
[2021-03-02 14:30] LABS: Potassium 3.8 mmoL/L (3.5-5.1)
[2021-03-02 14:32] LABS: Alanine Aminotransferase 19 U/L (12-78); Albumin Level 4.2 g/dl (3.5-5.0); Albumin/Globulin Ratio 1.4 (1.1-1.8); Alkaline Phosphatase 77 U/L (38-126); Anion Gap 11.8 mEq/L (5-15); Aspartate Amino Transferase 25 U/L (14-36); Bilirubin,Total 0.4 mg/dl (0.2-1.3); Blood Urea Nitrogen 13 mg/dl (7-17); Calcium 8.8 mg/dl (8.4-10.2); Carbon Dioxide 23 mmol/L (22.0-30.0); Creatinine Clearance Estimated 178 mL/min (50-200); Estimated Glomerular Filt Rate 108 ml/min (>60); GFR (African American) 131 ML/MIN (>60); Globulin 2.9 g/dL (1.3-3.2); Glucose 168 mg/dl (74-100); Lipase 90 U/L (23-300); Total Protein,Serum 7.1 g/dl (6.3-8.2)
[2021-03-02 14:41] LABS: Microscopic, Urine URINE MICROSCOPIC (MICROSCOPIC)
[2021-03-02 14:43] LABS: Appearance,Urine CLEAR (Clear); Bilirubin,Urine Negative (Negative); Blood, Urine 2+ (Negative); Color,Urine YELLOW (Yellow); Glucose,Urine (UA) Negative (Negative); Ketones,Urine Negative (Negative); Leukocyte Esterase,Urine Negative (Negative); Nitrate,Urine Negative (Negative); Protein,Urine Negative (Negative); Urobilinogen,Urine 0.2 EU/dl (0.2)
[2021-03-02 14:50] LABS: WBC,Urine Occasional #/hpf (0-3)
[2021-03-02 15:02] VITALS: BP 120/72; PULSE 82; O2SAT 94
[2021-03-02 15:30] VITALS: BP 126/81; PULSE 71; O2SAT 96
[2021-03-02 16:01] VITALS: BP 109/50; PULSE 68; O2SAT 92
[2021-03-02 16:30] VITALS: BP 166/76; PULSE 69; O2SAT 96
[2021-03-02 17:20] VITALS: BP 110/64; PULSE 67; RESP 18; TEMP 36.8; O2SAT 99
== END 2021-03-02 17:22 | disposition home or self-care (01) ==
PROVIDERS: Emergency Provider Emergency Medicine; PCP Family Medicine
DX: R10.31 Right lower quadrant pain (principal); F41.9 Anxiety disorder, unspecified; N83.201 Unspecified ovarian cyst, right side; Z79.899 Other long term (current) drug therapy; Z88.0 Allergy status to penicillin; Z88.5 Allergy status to narcotic agent
CPT/HCPCS: 74177; 80053; 81001; 83690; 85025; 99283; J2405; Q9967

== ENCOUNTER → 2021-03-07 12:27 | Outpatient (CLI) | payer OTHER, SELFPAY ==
[2021-03-07 14:34] LABS: Basophils % 0.4 % (0.1-2.0); Eosinophils # 0.2 K/mm3 (0.0-0.4); Eosinophils % 2.8 % (0.1-12.0); Hematocrit 38.3 % (37.0-47.0); Hemoglobin 12.7 g/dL (12.2-16.2); Lymphocytes # 3.1 K/mm3 (0.7-4.5); Lymphocytes % 49.8 % (10-50); Mean Corpuscular HGB Conc 33.2 g/dL (31.8-35.4); Mean Corpuscular Volume 90.3 fl (81-99); Mean Platelet Volume 8.6 fl (7.4-10.4); Monocytes # 0.3 K/mm3 (0.1-1.0); Monocytes % 4.7 % (1.7-9.3); Neutrophils # 2.7 K/mm3 (1.8-7.8); Neutrophils % 42.4 % (37.0-80.0); Platelet Count 260 K/mm3 (142-424); Red Blood Count 4.24 M/mm3 (4.20-5.40); White Blood Count 6.3 K/mm3 (4.8-10.8)
[2021-03-07 14:45] LABS: Coronavirus 19 IgG Antibody Positive (Negative); Coronavirus 19 IgM Antibody Negative (Negative)
[2021-03-07 17:29] LABS: HCG Qualitative, Serum Negative (Negative)
[2021-03-07 17:32] LABS: Chloride 105 mmol/L (98-107); Potassium 4.4 mmoL/L (3.5-5.1); Sodium 137 mmol/L (136-145)
[2021-03-07 17:35] LABS: Anion Gap 11.4 mEq/L (5-15); Blood Urea Nitrogen 9 mg/dl (7-17); Calcium 8.7 mg/dl (8.4-10.2); Carbon Dioxide 25 mmol/L (22.0-30.0); Estimated Glomerular Filt Rate 108 ml/min (>60); GFR (African American) 131 ML/MIN (>60); Glucose 86 mg/dl (74-100)
== END ==
PROVIDERS: PCP Family Medicine; Visit Provider Nurse Practitioner Obstetrics & Gynecology
DX: Z01.818 Encounter for other preprocedural examination (principal); Z20.822 Contact with and (suspected) exposure to COVID-19; R10.2 Pelvic and perineal pain; R10.31 Right lower quadrant pain; N85.2 Hypertrophy of uterus
CPT/HCPCS: 36415; 80048; 84703; 85025; 86328

== ENCOUNTER 2021-03-08 08:26 | Observation (INO) | payer OTHER, SELFPAY ==
[2021-03-05 14:42] VITALS: BMI 35.3
[2021-03-08] VITALS (24 sets, daily range): BP systolic 98–145; BP diastolic 25–83; PULSE 68–114; RESP 12–20; TEMP 36.5–38; O2SAT 95–100
--- NOTE | 2021-03-08 09:27 | ECG_ITS ---
APPROVED REPORT Exam: Resting ECG HR:68 bpm ECG Measurements Heart Rate 68 AXES NM 140 P 76 QRSd 74 QRS 21 QT 388 T 16 QTc 412 Conclusion Normal sinus rhythm Normal ECG Electronically signed by : Dale Celis, 03/08/2021 19:07:45
--- NOTE | 2021-03-08 10:39 | P.PN_ITS ---
[facility] Anesthesia Checklist - Patient Identification Patient Identification: Arm Band - Structural Data Admitted From: Inpatient Planned Operative Procedure/s: [facility] Consent for Planned Operative Procedure(s) Verified: Yes Verified Documents: Surgical Consent, History and Physical - NPO Status Verified Time NPO: 00:00 - Additional verifications Anesthesia Reactions: Yes (shivering) Hx Blood Transfusions: No Blood Transfusion Reaction: No - Airway Assessment C-Spine Mobility Assessed: Yes TMJ Mobility Assessed: Yes Dentition: Good Dentition - Neurological Assessment Level of Consciousness: Awake, Alert - Anesthesia Plan Anesthesia Risk discussed: Yes Anesthesia Plan: Verified ASA Class: II Anesthesia Type: General [facility] History Medical History: Reports:: Anxiety Denies:: Cancer, Diabetes Mellitus Type 1, Diabetes Mellitus Type 2, Internal Pacemaker, MRSA, Seizures *Have you ever received a pneumonia vaccine?: No *Have you received a flu vaccine this season?: No Other Medical History: Denies: Blood Transfusion Reaction Anesthesia experience/problems:: None Laterality Cases: Bilateral: Tonsillectomy Other Surgeries: Yes: Cholecystectomy, Colonoscopy, , Diagnostic Lap, Other. No: Pacemaker Amputation: No Fractures: Yes - *Social History Last grade of school completed: Advanced degree Smoking Status: Never smoker Alcohol Intake: current Alcohol Intake Frequency:: a few times a month Substance Use Type: denies use *Occupational Status:: employed Housing: house Household Members: spouse *Travel in the last 8 weeks: None - Psychiatric History Pschychiatric History:: Reports:: Anxiety Family Hx:: Cancer, Diabetes, Thyroid Disorder
--- NOTE | 2021-03-08 11:32 | SUR.OPER ---
11:23 family notified of surgery status
--- NOTE | 2021-03-08 12:10 | HMH.OPNOTE ---
Date of procedure: 03/08/21 Pre-op Diagnosis:: Menorrhagia, uterine hypertrophy, severe pelvic pain Post-op Diagnosis:: Menorrhagia, uterine hypertrophy, fibroid uterus, possible adenomyosis, pelvic pain Procedure performed:: Laparoscopically assisted vaginal hysterectomy, bilateral salpingectomy Surgeon:: Teto Ellison MD [employer] Hand(s):: Dr. Conrad DIRECTOR CLOUD TRANSFORMATION:: Other (Jagdish Lam) Anesthesia: GETA Estimated blood loss (mL): 150 Clinical Note:: She is a 45-year-old lady who complains of severe pain with her periods. She has been in the ER a couple of times over the last 2 weeks with severe lower abdominal pain. She started having her period and was going through multiple pads every day. She initially had severe right lower quadrant pain but then began having midline pain. I suspect she has adenomyosis and possible fibroid. She has had a previous endometrial ablation. CT scan and transvaginal ultrasound were all normal. As result of the severe pain and heavy bleeding we elected perform a laparoscopic-assisted vaginal hysterectomy and bilateral salpingectomy. Operative findings:: She had an anteverted very bulky uterus. It was soft and boggy consistent with adenomyosis. It looks like there may have been a fibroid in the uterus as well. Both tubes appeared normal. The upper abdomen appeared normal. We did inspect the appendix since she had right lower quadrant pain initially although that had resolved this morning. The appendix appeared completely normal. As result of that I did not remove this. Operative note:: She was taken to the operating room where general anesthesia was found be adequate. She was prepped and draped in normal sterile fashion in the semilithotomy position. A weighted speculum was placed in the vagina and the anterior lip of the cervix was grasped with a tenaculum. An acorn uterine manipulator was then placed within the cervical os. I then changed gloves. I injected 10 cc of 0.5% ropivacaine around the umbilicus and made a small incision within the umbilicus. I inserted a Veress needle into the abdominal cavity. The abdominal cavity was then insufflated with carbon dioxide gas to a pressure of 20 mmHg. I then inserted an 11 mm trocar under direct vision. I injected through and through the pubic hairline, made a small incision here and inserted a 5 mm trocar under direct vision. I identified the inferior epigastric arteries on the left side, went lateral to these and injected through and through. I then made a small incision and inserted an 11 mm trocar under direct vision. A similar 11 mm trocar was placed on the right side. The left round ligament was then grasped and cut through with harmonic scalpel. This was followed by opening up the peritoneum anteriorly to the midline. I then grasped the tube on the left side and cut through this. This is followed by cutting through the left utero-ovarian ligament. I used Harmonic scalpel on the coagulation mode. I then took down the posterior aspect of the broad ligament to the level of the uterosacral ligament. I then skeletonized the uterine arteries on the left side and placed hemoclips on these. Using the harmonic scalpel on coagulation mode adjacent to the cervix I then took down these uterine arteries. I then further freed up the bladder anteriorly and laterally on the left side. I then turned my attention to the right side where I grasped the right round ligament. The right tube was adherent to the right pelvic sidewall and using harmonic scalpel I was able to free this up. I then cut through the right round ligament. I then took down the anterior peritoneum to the midline joining up with the other side. I further dissected the bladder off. The posterior aspect of the right broad ligament was then taken down with harmonic scalpel. I skeletonized the uterine arteries on the right side. I applied hemoclips to the uterine arteries and staying adjacent to the
--- NOTE | 2021-03-08 12:34 | HMH.ANESI ---
[facility] Anesthesia Record Part I Intake, IV Amount: 1,000 Estimated blood loss (mL): 150 Urine output (mL): 25 Blood Pressure: 145/82 SaO2: 99 Pulse Rate: 114 Respiratory Rate: 12 Temperature: 97.7 F Patient is:: Awake, Drowsy Stable to PACU at:: 12:26
[2021-03-08 12:53] LABS: Microscopic,Cath URINE MICROSCOPIC (MICROSCOPIC)
[2021-03-08 12:54] LABS: Appearance,Urine/Cath CLEAR (Clear); Bilirubin,Cath Negative (Negative); Blood, Urine/Cath 2+ (Negative); Color,Urine/Cath YELLOW (Yellow); Glucose,Urine/Cath (UA) Negative (Negative); Ketones,Urine/Cath Negative (Negative); Leukocyte Esterase,Cath Negative (Negative); Nitrate,Cath Negative (Negative); Protein,Urine/Cath Negative (Negative); Specific Gravity, Urine/Cath >= 1.030 (1.005-1.030); Urobilinogen,Cath 0.2 EU/dl (0.2)
--- NOTE | 2021-03-08 13:08 | PC.NURSE ---
Report received from ORTIZ RamosU RN
[2021-03-08 13:23] LABS: Basophils % 0.3 % (0.1-2.0); Eosinophils % 0.2 % (0.1-12.0); Hematocrit 37.8 % (37.0-47.0); Hemoglobin 11.7 g/dL (12.2-16.2); Lymphocytes # 1.7 K/mm3 (0.7-4.5); Lymphocytes % 11.5 % (10-50); Mean Corpuscular HGB Conc 31.1 g/dL (31.8-35.4); Mean Corpuscular Hemoglobin 29.1 pg (27.0-31.2); Mean Corpuscular Volume 93.6 fl (81-99); Mean Platelet Volume 7.9 fl (7.4-10.4); Monocytes # 0.3 K/mm3 (0.1-1.0); Neutrophils # 12.5 K/mm3 (1.8-7.8); Platelet Count 270 K/mm3 (142-424); Red Blood Count 4.04 M/mm3 (4.20-5.40); Red Cell Distribution Width 12.7 % (11.5-17.5); White Blood Count 14.5 K/mm3 (4.8-10.8)
[2021-03-08 13:26] LABS: WBC,Urine/Cath Occasional #/hpf (0-3)
[2021-03-08 13:26] LABS: MANUAL DIFFERENTIAL MANUAL DIFFERENTIAL (MANUAL DIFF)
[2021-03-08 13:47] LABS: Lymphocytes % 14 % (10-50); Monocytes % 2 % (2-9); Neutrophils % 84 % (42-76); Total Cells Counted 100
[2021-03-08 13:48] LABS: Platelet Estimate Normal; RBC Morphology Normal
[2021-03-08 16:04] LABS: Hematocrit 36.9 % (37.0-47.0)
--- NOTE | 2021-03-08 17:55 | HMH.HP ---
*Admission Date: 03/08/21 *Chief complaint: Heavy periods, pelvic pain, dysmenorrhea *History of present illness: She is a 45-year-old lady who complains of extremely heavy periods. She has extreme pain with her periods. She has been seen in the ER a couple of times recently with severe lower abdominal pain. She was exquisitely tender when I examined her uterus. The uterus itself was bulky. CT scans were negative. After having discussed the risks and benefits we elected to perform a laparoscopic-assisted vaginal hysterectomy and bilateral salpingectomy. [facility] History I have reviewed the patient's past medical history: Yes Medical History: Reports:: Anxiety Denies:: Cancer, Diabetes Mellitus Type 1, Diabetes Mellitus Type 2, Internal Pacemaker, MRSA, Seizures *Have you ever received a pneumonia vaccine?: Yes *Have you received a flu vaccine this season?: Yes Other Medical History: Denies: Blood Transfusion Reaction Anesthesia experience/problems:: None Laterality Cases: Bilateral: Tonsillectomy Other Surgeries: Yes: Cholecystectomy, Colonoscopy, , Diagnostic Lap, Other. No: Pacemaker Amputation: No Fractures: No - *Social History Last grade of school completed: Advanced degree Smoking Status: Never smoker Alcohol Intake: current Alcohol Intake Frequency:: holidays/special occasions only Substance Use Type: denies use *Occupational Status:: employed Housing: house Household Members: spouse, children *Travel in the last 8 weeks: None - Psychiatric History Pschychiatric History:: Reports:: Anxiety Family Hx:: Cancer, Hypertension Review of Systems - Review of Systems Review of systems:: pertinent systems reviewed and negative unless documented below Meds Home Medications Medication Instructions Recorded Confirmed Type Omeprazole [Omeprazole 20mg 20 mg PO DAILY 05/26/20 03/08/21 History Capsule] Levothyroxine Sodium [Synthroid 50 mcg PO DAILY 09/26/20 03/08/21 History 50mcg (0.05mg) tab] escitalopram oxalate 20 mg tablet 20 mg PO DAILY #90 tab 10/05/20 03/08/21 Rx Allergies Allergy/AdvReac Type Severity Reaction Status Date / Time cefaclor [From Ceclor] Allergy Unknown Verified 03/08/21 13:42 allergy reaction morphine Allergy Chest Pain Verified 03/08/21 13:42 Penicillins Allergy Unknown Verified 03/08/21 13:42 allergy reaction Exam Vital signs and Labs for Last 24 Hours: Temp Pulse Resp BP Pulse Ox 98.2 F 90 18 117/69 97 03/08/21 15:55 03/08/21 16:25 03/08/21 16:25 03/08/21 16:25 03/08/21 16:25 Laboratory Results - last 24 hr 03/08/21 12:00: Urine Color Yellow, Urine Appearance Clear, Urine pH 6.0, Ur Specific [place] >= 1.030, Urine Protein Negative, Urine Glucose (UA) Negative, Urine Ketones Negative, Urine Blood 2+, Urine Nitrate Negative, Urine Bilirubin Negative, Urine Urobilinogen 0.2, Ur Leukocyte Esterase Negative, Urine RBC 5-10, Urine WBC Occasional, Ur Squamous Epith Cells 3-5, Urine Bacteria None 03/08/21 13:05: WBC 14.5 H D, RBC 4.04 L, Hgb 11.7 L, Hct 37.8, MCV 93.6, MCH 29.1, MCHC 31.1 L, RDW 12.7, Plt Count 270, MPV 7.9, Neut % (Auto) 86.0 H, Lymph % (Auto) 11.5, [place] % (Auto) 2.0, Eos % (Auto) 0.2, Baso % (Auto) 0.3, Neut # (Auto) 12.5 H, Lymph # (Auto) 1.7, [place] # (Auto) 0.3, Eos # (Auto) 0.0, Baso # (Auto) 0.0, Total Counted 100, Neutrophils % (Manual) 84 H, Lymphocytes % (Manual) 14, Monocytes % (Manual) 2, Platelet Estimate Normal, RBC Morphology Normal 03/08/21 15:55: Hgb 12.0 L, Hct 36.9 L I & O for Last 24 hours: Intake & Output 03/06/21 03/07/21 03/08/21 03/09/21 11:59 11:59 11:59 11:59 Intake Total 1000 / 1000 Output Total Balance - / 1000 / 1000 Weight 206 lb Microbiology Reports for the Last 24 Hours: Microbiology 03/08/21 09:30 Nasopharyngeal Coronavirus COVID-19 PCR - Final - Constitutional no acute distress - *Routine HEENT Exam Head: Present: normocephalic
--- NOTE | 2021-03-08 21:30 | PC.NURSE ---
UPON ENTERING ROOM,PT WAS ON PHONE,ASKED ABOUT HER PAIN AND SHE SAID MAYBE A 1 OR 2 ON SCALE OF 1-10,REQUESTED MAYBE SOME TYLENOL TO HAVE SOMETHING ON BOARD,THIS WAS GIVEN,TOLD PT SHE WAS TO GET HER KELLIE TORADOL AT 2300,PT V/U.WILL CONTINUE TO MONITOR
--- NOTE | 2021-03-08 22:00 | PC.NURSE ---
AFTER PT RETURNED FROM BATHROOM,SHE SAID THE TYLENOL HELPED.NO NEEDS OR CONCERNS VOICED,ANOTHER BAG LR HUNG AT THIS TIME.
[2021-03-09 04:45] VITALS: BP 95/47; PULSE 78; RESP 18; TEMP 37; O2SAT 95
--- NOTE | 2021-03-09 05:14 | PC.NURSE ---
NO ACUTE CHANGES FROM PREVIOUS ASSESSMENT,LUNGS CLEAR TO ASCULTATE THROUGHTOUT ,RESP.EVEN AND UNLABORED,BOWEL SOUNDS X4 QUADS,PT REPORTS PASSING GAS,VOIDING WITHOUT DIFF.NO NEW DRAINAGE TO 4 LAP SITES.PT HAS ONLY ASKED FOR TYLENOL ONCE AND SHE HAS RECIEVED KELLIE.TORADOL,PT ONLY RATES PAIN ABOUT A 1-2 ON SCALE OF 0-10.WILL CONTINUE TO MONITOR
[2021-03-09 06:57] LABS: Chloride 105 mmol/L (98-107); Potassium 4.2 mmoL/L (3.5-5.1); Sodium 137 mmol/L (136-145)
[2021-03-09 07:00] LABS: Anion Gap 10.2 mEq/L (5-15); Blood Urea Nitrogen 7 mg/dl (7-17); Carbon Dioxide 26 mmol/L (22.0-30.0); Creatinine Clearance Estimated 175 mL/min (50-200); Estimated Glomerular Filt Rate 108 ml/min (>60); GFR (African American) 131 ML/MIN (>60)
[2021-03-09 07:01] LABS: Calcium 8.7 mg/dl (8.4-10.2); Glucose 113 mg/dl (74-100)
[2021-03-09 08:00] VITALS: O2SAT 98
--- NOTE | 2021-03-09 08:00 | PC.NURSE ---
ASSESSMENT PERFORMED AT THIS TIME. BILATERAL LUNG SOUNDS CLEAR. NO EDEMA NOTED. X4 LAP SITES TO ABD C/D/I. PT DENIES ANY PAIN. STATES SMALL AMOUNT OF PINK VAGINAL BLEEDING. PT PASSING GAS. NO BM BOWEL SOUNDS NORMOACTIVE. WILL CONTINUE TO OBSERVE.
[2021-03-09 08:02] VITALS: BP 105/55; PULSE 78; RESP 18; TEMP 36.8; O2SAT 98
--- NOTE | 2021-03-09 08:09 | HMH.DCSUM ---
General - General Admission date:: 03/08/21 Discharge date: 03/09/21 HPI HPI: She is a 45-year-old lady who complains of extremely heavy periods. She has extreme pain with her periods. She has been seen in the ER a couple of times recently with severe lower abdominal pain. She was exquisitely tender when I examined her uterus. The uterus itself was bulky. CT scans were negative. After having discussed the risks and benefits we elected to perform a laparoscopic-assisted vaginal hysterectomy and bilateral salpingectomy. Hospital Course Hospital Course: On March 08, 2021 she underwent a laparoscopic-assisted vaginal hysterectomy and bilateral salpingectomy. She has done well postoperatively and has remained afebrile throughout her hospitalization. She is eating and drinking and ambulating. She is voiding well. She has not had a bowel movement. She denies any chest pain, shortness of breath or calf tenderness. She will be discharged home today to follow-up with me in 2 weeks time. She will continue with her home medications. She was given a prescription for Percocet 5/325. She was given a prescription for Toradol for the next 5 days. She will take Tylenol as well. She will take a women's One-A-Day vitamin with iron. She was given the usual instructions with respect to limiting her activity, driving and sexual activity. Her condition on discharge is stable improved. Objective Vital signs: Temp Pulse Resp BP Pulse Ox 98.3 F 78 18 105/55 L 98 03/09/21 08:02 03/09/21 08:02 03/09/21 08:02 03/09/21 08:02 03/09/21 08:02 no acute distress - *Routine HEENT Exam Head: Present: normocephalic Eye: Present: EOMI, PERRL ENT: Present: mucous membranes moist - *Routine Neck Exam Present: supple - *Routine Respiratory Exam Present: CTA bilaterally - *Routine Cardiovascular Exam Present: RRR - *Routine Abdominal Exam Present: soft, normoactive bowel sounds. Absent: tenderness Comments: Her incisions are clean and dry. Results Labs on day of discharge: Labs from last 24 hours 03/09/21 03/08/21 03/08/21 06:42 15:55 13:05 WBC 14.5 H D RBC 4.04 L Hgb 12.0 L 11.7 L Hct 36.9 L 37.8 MCV 93.6 MCH 29.1 MCHC 31.1 L RDW 12.7 Plt Count 270 MPV 7.9 Neut % (Auto) 86.0 H Lymph % (Auto) 11.5 [place] % (Auto) 2.0 Eos % (Auto) 0.2 Baso % (Auto) 0.3 Neut # (Auto) 12.5 H Lymph # (Auto) 1.7 [place] # (Auto) 0.3 Eos # (Auto) 0.0 Baso # (Auto) 0.0 Total Counted 100 Neutrophils % (Manual) 84 H Lymphocytes % (Manual) 14 Monocytes % (Manual) 2 Platelet Estimate Normal RBC Morphology Normal Sodium 137 Potassium 4.2 Chloride 105 Carbon Dioxide 26 Anion Gap 10.2 BUN 7 Creatinine 0.60 Estimated Creat Clear 175 Estimated GFR 108 Est GFR ( Amer) 131 Glucose 113 H Calcium 8.7 Urine Color Urine Appearance Urine pH Ur Specific [place] Urine Protein Urine Glucose (UA) Urine Ketones Urine Blood Urine Nitrate Urine Bilirubin Urine Urobilinogen Ur Leukocyte Esterase Urine RBC Urine WBC Ur Squamous Epith Cells Urine Bacteria 03/08/21 12:00 WBC RBC Hgb Hct MCV MCH MCHC RDW Plt Count MPV Neut % (Auto) Lymph % (Auto) [place] % (Auto) Eos % (Auto) Baso % (Auto) Neut # (Auto) Lymph # (Auto) [place] # (Auto) Eos # (Auto) Baso # (Auto) Total Counted Neutrophils % (Manual) Lymphocytes % (Manual) Monocytes % (Manual) Platelet Estimate RBC Morphology Sodium Potassium Chloride Carbon Dioxide Anion Gap BUN Creatinine Estimated Creat Clear Estimated GFR Est GFR ( Amer) Glucose Calcium Urine Color Yellow Urine Appearance Clear Urine pH 6.0 Ur Specific [place] >= 1.030 Urine Protein Negative Urine Glucose (UA) Negative Urine Ketones Negative Urine Blood 2+ U
--- NOTE | 2021-03-09 08:40 | PC.NURSE ---
IV DC'D AT THIS TIME. PT TOLERATED WELL. DC INSTRUCTIONS GONE OVER WITH PT AT THIS TIME. QUESTIONS ANSWERED AND ENCOURAGED. PT VU.
--- NOTE | 2021-03-09 08:50 | PC.NURSE ---
PT WHEELED IN W/C OFF UNIT AT THIS TIME X1 [facility] STAFF.
--- NOTE | 2021-03-11 08:14 | HMH.ANESII ---
[facility] Anesthesia Record Part II Discharge Time: 13:06 Destination: Obstetric PACU nurse assessment reviewed?: Yes Patient Condition:: Good Anesthesia Complications:: None Swallowing reflex intact?: Yes Cyanosis?: No Blood Pressure: 108/65 Pulse Rate: 90 Temperature: 98 F Mental Status: Alert & Oriented Pain level:: 0 Nausea and/or vomitting:: None Intake, IV Amount: 1,000
[2021-03-11 08:15] VITALS: BP 108/65; PULSE 90; TEMP 36.6
== END 2021-03-09 08:50 | disposition home or self-care (01) ==
LOC: OB 08:26
PROVIDERS: Admitting Provider Nurse Practitioner Obstetrics & Gynecology; PCP Family Medicine; Visit Provider Nurse Practitioner Obstetrics & Gynecology
PROC: 0UT9FZZ Resection of Uterus, Via Natural or Artificial Opening With Percutaneous Endoscopic Assistance (ICD-10-PCS; CPT 58552; principal; 2021-03-08 09:30)
DX: N92.0 Excessive and frequent menstruation with regular cycle (principal); E03.9 Hypothyroidism, unspecified; N85.2 Hypertrophy of uterus; D25.9 Leiomyoma of uterus, unspecified; R10.2 Pelvic and perineal pain
CPT/HCPCS: 58552; 36415; 80048; 81001; 85007; 85014; 85018; 85025; 93005; 94761; 96374; G0283; G0378; J1956; J2405; J2710; U0003

== ENCOUNTER → 2021-06-11 08:53 | Outpatient (POV) | payer OTHER, SELFPAY | PROVIDERS: Visit Provider Dermatology | DX: Z00.00 Encounter for general adult medical examination without abnormal findings (principal) ==

== ENCOUNTER → 2021-06-20 19:42 | Outpatient (CLI) | payer OTHER, SELFPAY | PROVIDERS: Visit Provider Nurse Practitioner Obstetrics & Gynecology | DX: N39.0 Urinary tract infection, site not specified (principal) | CPT/HCPCS: 87086; 87088; 87186 ==

== ENCOUNTER → 2021-07-14 20:51 | Outpatient (CLI) | payer OTHER, SELFPAY ==
[2021-07-14 21:25] LABS: Coronavirus 19, PCR Not Detected (NotDetected); Influenza A, PCR Not Detected (NotDetected); Influenza B, PCR Not Detected (NotDetected)
== END ==
PROVIDERS: PCP Family Medicine; Visit Provider Physician Assistant
DX: Z20.822 Contact with and (suspected) exposure to COVID-19 (principal)
CPT/HCPCS: U0003

== ENCOUNTER → 2021-07-15 10:12 | Outpatient (CLI) | payer OTHER, SELFPAY | PROVIDERS: PCP Family Medicine; Visit Provider Family Medicine | DX: Z20.822 Contact with and (suspected) exposure to COVID-19 (principal) | CPT/HCPCS: U0003 ==

== ENCOUNTER → 2021-10-18 08:17 | Outpatient (CLI) | payer OTHER, SELFPAY ==
[2021-10-18 08:31] LABS: Coronavirus 19, PCR Not Detected (NotDetected); Influenza A, PCR Not Detected (NotDetected); Influenza B, PCR Not Detected (NotDetected)
== END ==
PROVIDERS: PCP Family Medicine; Visit Provider Nurse Practitioner
DX: Z20.822 Contact with and (suspected) exposure to COVID-19 (principal)
CPT/HCPCS: C9803; U0003; U0005

== ENCOUNTER 2021-10-18 09:06 | Emergency (ER) | payer OTHER, SELFPAY ==
[2021-10-18 09:33] VITALS: BP 145/90; PULSE 67; RESP 18; TEMP 37.1; O2SAT 98; BMI 35.0
[2021-10-18 09:48] VITALS: BP 145/90; PULSE 67; RESP 18; TEMP 37.1; O2SAT 98; BMI 35.0
--- NOTE | 2021-10-18 10:03 | HMH.EDUTC ---
[facility] [place] Disposition Clinical Impression: Elevated blood pressure reading Hypothyroidism Qualifiers: Hypothyroidism type: unspecified Qualified Code(s): E03.9 - Hypothyroidism, unspecified Disposition: Home, Self-Care Condition on Discharge: Good Instructions: Essential Hypertension Additional Instructions: Avoid taking over the counter cold medications. About the only one that is supposed to not increase your blood pressure is plain chloriciden. Try that one if you do have to take something otc. Follow up with your primary care doctor. Drink plenty of water and watch your sodium intake. Try to get it as low as possible. I don't feel like you need to be on a restrictive diet for sodium (like less than 2000 mg per day) but please try to not add salt and not eat anything that is very salty. Take the medication as directed. GO TO THE ER FOR ANY WORSENING SYMPTOMS OR CONCERNS Prescriptions: hydroCHLOROthiazide [Hydrochlorothiazide 12.5mg Tab] 12.5 mg PO DAILY 30 Days #30 tab Transmission Status: Received by [facility] Referrals: Dale Avila MD [Primary Care Provider] - Forms: Work/School Release Time of Disposition: 10:09 Medical Decision Making - Medical Records Medical records reviewed: No: I reviewed the patient's medical records. - Piotr Inquiry Pt receiving controlled substance: No Vital Signs: 10/18/21 09:33 10/18/21 09:48 10/18/21 10:20 Temperature 98.7 F 98.7 F 98.7 F Temperature Source Oral Oral Pulse Rate 67 Pulse Rate [Left] 67 67 Respiratory Rate 18 18 18 Blood Pressure 145/90 H Blood Pressure [Right Arm] 145/90 H 145/90 H Blood Pressure Mean [Right Arm] 108 108 02 Sat by Pulse Oximetry 98 98 - Lab Data Lab Results 10/18/21 10:11: Free T4 0.92 10/18/21 10:11: TSH 1.02 [facility] [place] HPI - General Stated complaint: high blood pressure Time Seen by Provider: 10/18/21 10:03 Mode of Arrival: Ambulatory Source of Information: Patient Limitations: No Limitations HEENT Symptoms (Recalled from RN notes): Yes ([place] and sinus pressure) Resp Symptoms (Recalled from RN notes): Yes (dry cough) Skin Symptoms (Recalled from RN notes): No MS Symptoms (Recalled from RN notes): No Functional Status (Recalled from RN notes): wnl - History of Present Illness Provider Complaint: She is here stating that she feels very tired. She has been checking her blood pressure at home and it has been running in the 140 to 150 over 90's range. Also, she has hypothyroidism that she thinks might be causing her to feel tired. - Related Data Home Medications Medication Instructions Recorded Confirmed Omeprazole [Omeprazole 20mg 20 mg PO DAILY 05/26/20 06/20/21 Capsule] Previous Rx's Medication Instructions Recorded levothyroxine 50 mcg tablet 50 mcg PO DAILY #30 tab 04/09/21 escitalopram oxalate 20 mg tablet 20 mg PO DAILY #90 tab 06/14/21 nitrofurantoin 100 mg PO BID 5 Days #10 cap 06/20/21 monohydrate/macrocrystals 100 mg capsule phenazopyridine 100 mg tablet 100 mg PO TID PRN 3 Days #9 tab 06/20/21 hydroCHLOROthiazide 12.5 mg PO DAILY 30 Days #30 tab 10/18/21 [Hydrochlorothiazide 12.5mg Tab] Allergies Allergy/AdvReac Type Severity Reaction Status Date / Time cefaclor [From Ceclor] Allergy Unknown Verified 06/20/21 11:44 allergy reaction morphine Allergy Chest Pain Verified 06/20/21 11:44 Penicillins Allergy Unknown Verified 06/20/21 11:44 allergy reaction - Worker's Comp Is this a Worker's Comp case?: No [facility] History - Hepatitis A Screen Drug use history?: No High risk sexual behaviors?: No History of sexually transmitted infection?: No Currently employed?: No Childcare worker?: No Do you have indoor plumbing?: Yes Do you have electricity?: Yes Attestation statement:: This patient has been screened for Hepatitis A risk factors. I have reviewed the patient's past medical history: Yes Medical History: Report
[2021-10-18 10:20] VITALS: BP 145/90; PULSE 67; RESP 18; TEMP 37.1
[2021-10-18 11:02] LABS: Free T4 (Free Thyroxine) 0.92 ng/dl (0.78-2.19)
[2021-10-18 11:16] LABS: Thyroid Stimulating Hormone 1.02 uIU/mL (0.465-4.68)
== END 2021-10-18 10:22 | disposition home or self-care (01) ==
PROVIDERS: Emergency Provider Nurse Practitioner Family; PCP Family Medicine
DX: R03.0 Elevated blood-pressure reading, without diagnosis of hypertension (principal); E03.9 Hypothyroidism, unspecified; F41.9 Anxiety disorder, unspecified; Z79.899 Other long term (current) drug therapy
CPT/HCPCS: 84439; 84443; 99202; G0463

== ENCOUNTER → 2021-12-05 10:18 | Outpatient (CLI) | payer OTHER, SELFPAY ==
--- NOTE | 2021-12-05 10:21 | US_ITS ---
FINAL REPORT CLINICAL HISTORY: THYROID NODULE-- fu -- prev COMPARISON: October 19, 2020 FINDINGS: THYROID ULTRASOUND Sonographic images of the thyroid was obtained. The right lobe of the thyroid measures 1.0 x 4.1 x 2.2 cm. The left lobe of the thyroid measures 1.3 x 4.1 x 1.5 cm. The isthmus measures 0.4 cm. There are several nodules bilaterally. The largest on the right is solid, hypoechoic and measures 1.3 x 0.6 cm. This was not definitely visualized on the prior. TI-RADS 4. There are other other smaller nodules measuring 3 mm and 6 mm. There are several left lobe nodules with the largest being solid, hypoechoic and measuring 1.1 cm and was 1.3 cm. There are several other smaller nodules measuring 6 mm and 3 mm. IMPRESSION: Several bilateral nodules with the largest on the right which may be new. Recommend follow-up ultrasound. Reviewed, Interpreted and Dictated by Sawyer Meyer III, MD Transcribed by Kesha Lynch Authenticated by Sawyer Meyer III, MD on 12/05/2021 12:47:36 PM [facility]
== END ==
PROVIDERS: PCP Pediatrics; Visit Provider Otolaryngology
DX: E04.1 Nontoxic single thyroid nodule (principal)
CPT/HCPCS: 76536

== ENCOUNTER 2021-12-18 10:42 | Emergency (ER) | payer OTHER, SELFPAY ==
--- NOTE | 2021-12-18 12:21 | HMH.EDUTC ---
[facility] [place] [facility] [place] Clinical Impression: Serous otitis media Qualifiers: Chronicity: acute Laterality: bilateral Recurrence: non-recurrent Qualified Code(s): H65.03 - Acute serous otitis media, bilateral Disposition: Home, Self-Care Condition on Discharge: Good Instructions: Middle Ear Infection Additional Instructions: Drink plenty of fluids. Take tylenol or ibuprofen for pain or fever. Take the medications as directed. Follow up with your regular doctor. GO TO THE ER FOR ANY WORSENING SYMPTOMS Don't start the oral steroids until tomorrow, since you had the shot here today. Prescriptions: Pseudoephedrine HCl 30 mg PO Q6HP PRN #30 tab PRN Reason: Congestion Transmission Status: Received by [facility] Fluticasone Propionate [Flonase 50mcg nasal spray 16gm] 1 spr NS DAILY 30 Days #120 each Transmission Status: Received by [facility] methylPREDNISolone [Medrol] 4 mg PO DIRECTED 6 Days #21 packet Transmission Status: Received by [facility] Referrals: Dale Avila MD [Primary Care Provider] - Time of Disposition: 12:42 Medical Decision Making - Medical Records Medical records reviewed: No: I reviewed the patient's medical records. - Piotr Inquiry Pt receiving controlled substance: No Vital Signs: 12/18/21 12:25 12/18/21 12:47 Temperature 98.7 F 98.7 F Temperature Source Oral Pulse Rate 60 Pulse Rate [Left] 60 Respiratory Rate 18 18 Blood Pressure 132/62 Blood Pressure [Right Arm] 132/62 Blood Pressure Mean [Right Arm] 85 02 Sat by Pulse Oximetry 98 Orders (Tests/Meds): ED MEDICATIONS Discontinued Medications Generic Name Dose Route Start Last Admin Trade Name Freq PRN Reason Stop Dose Admin Methylprednisolone Sodium Succinate 125 mg 12/18/21 12:46 12/18/21 12:47 Methylprednisolone Sod Succ 125mg Vial IM 12/18/21 12:47 125 mg ONCE ONE Administration [facility] [place] [facility] [place] HPI - General Stated complaint: left ear pain Time Seen by Provider: 12/18/21 12:21 - History of Present Illness Provider Complaint: She states that for the past 3 days she has had pressure and pain in her left ear. Her right ear has felt like it has a little pressure at times also, but not nearly as bad as her left. She has had decreased hearing in the left ear also. At times, when she raises up fast or turns her head fast she has had short periods of dizziness also. She denies any cough, congestion, sore throat or other complaints. She has been fully vaccinated against covid-19. - Related Data Home Medications Medication Instructions Recorded Confirmed Omeprazole [Omeprazole 20mg 20 mg PO DAILY 05/26/20 06/20/21 Capsule] Previous Rx's Medication Instructions Recorded levothyroxine 50 mcg tablet 50 mcg PO DAILY #30 tab 04/09/21 escitalopram oxalate 20 mg tablet 20 mg PO DAILY #90 tab 06/14/21 hydroCHLOROthiazide 12.5 mg PO DAILY 30 Days #30 tab 10/18/21 [Hydrochlorothiazide 12.5mg Tab] Fluticasone Propionate [Flonase 1 spr NS DAILY 30 Days #120 each 12/18/21 50mcg nasal spray 16gm] Pseudoephedrine HCl 30 mg PO Q6HP PRN #30 tab 12/18/21 methylPREDNISolone [Medrol] 4 mg PO DIRECTED 6 Days #21 12/18/21 packet Allergies Allergy/AdvReac Type Severity Reaction Status Date / Time cefaclor [From Ceclor] Allergy Unknown Verified 06/20/21 11:44 allergy reaction morphine Allergy Chest Pain Verified 06/20/21 11:44 Penicillins Allergy Unknown Verified 06/20/21 11:44 allergy reaction [facility] History - Hepatitis A Screen Attestation statement:: This patient has been screened for Hepatitis A risk factors. I have reviewed the patient's past medical history: Yes Medical History: Reports:: Anxiety Denies:: Cancer, Diabetes Mellitus Type 1, Diabetes Mellitus Type 2, Internal Pacemaker, MRSA, Seizures Other Medical History: Denies: Blood Transfusion Reaction Laterality Cases: Bilateral: Tonsillectomy Other Surgerie
[2021-12-18 12:25] VITALS: BP 132/62; PULSE 60; RESP 18; TEMP 37.1; O2SAT 98; BMI 35.2
[2021-12-18 12:47] VITALS: BP 132/62; PULSE 60; RESP 18; TEMP 37.1
== END 2021-12-18 12:48 | disposition home or self-care (01) ==
PROVIDERS: Emergency Provider Nurse Practitioner Family; PCP Family Medicine
DX: H65.03 Acute serous otitis media, bilateral (principal); Z79.899 Other long term (current) drug therapy; Z88.8 Allergy status to other drugs, medicaments and biological substances
CPT/HCPCS: 96372; 99202; G0463

== ENCOUNTER 2021-12-25 08:10 | Emergency (ER) | payer OTHER, SELFPAY ==
[2021-12-25 08:13] VITALS: BP 146/94; PULSE 64; RESP 16; TEMP 36.7; O2SAT 98; BMI 35.5
--- NOTE | 2021-12-25 08:40 | XR_ITS ---
FINAL REPORT CLINICAL HISTORY: epigastri abd pain/ low chest pain FINDINGS: The heart size is normal. The mediastinum is within normal limits. There is no acute cardiopulmonary process. There is no pleural effusion. There is no pneumothorax. The bony thorax is intact. IMPRESSION: No acute cardiopulmonary process. Reviewed, Interpreted and Dictated by Sawyer Meyer III, MD Transcribed by Dewey Nobles Authenticated by Sawyer Meyer III, MD on 12/25/2021 09:20:24 AM [facility]
--- NOTE | 2021-12-25 08:40 | ECG_ITS ---
APPROVED REPORT Exam: Resting ECG HR:58 bpm ECG Measurements Heart Rate 58 AXES ID 163 P 71 QRSd 93 QRS 8 QT 388 T 9 QTc 384 Conclusion SINUS BRADYCARDIA BORDERLINE ECG UNCONFIRMED REPORT Electronically signed by : Dale Celis MD 12/26/2021 18:59:56
--- NOTE | 2021-12-25 08:41 | HMH.EDGENADL ---
ED Disposition Clinical Impression: Epigastric abdominal pain Disposition: Home, Self-Care Condition on Discharge: Good Instructions: Acute Abdominal Pain Additional Instructions: follow up pcp , return for worse Referrals: Juan Diego Matias MD [Primary Care Provider] - - Critical Care Critical Care Time: No Attestation: On 12/25/21, the high probability of a clinically significant, sudden or life threatening deterioration of the following system(s) required my full and direct attention, intervention and personal management. The time I documented below is in addition to time spent performing reported procedures but includes the following listed in this critical care notation. Medical Decision Making - Medical Records Medical records reviewed: Yes: I reviewed the patient's medical records. - Piotr Inquiry Pt receiving controlled substance: No Vital Signs: 12/25/21 08:13 12/25/21 09:00 Temperature 98.1 F Temperature Source Oral Pulse Rate 68 Pulse Rate [Radial] 64 Respiratory Rate 16 18 Blood Pressure 130/89 Blood Pressure [Right Arm] 146/94 H Blood Pressure Mean 102 Blood Pressure Mean [Right Arm] 111 Blood Pressure Position [Right Arm] Sitting 02 Sat by Pulse Oximetry 98 100 Oxygen Delivery Method Room Air - Lab Data Lab Results 12/25/21 08:30: WBC 10.9 H, RBC 4.76, Hgb 14.4, Hct 44.5, MCV 93.3, MCH 30.2, MCHC 32.4, RDW 13.7, Plt Count 321, MPV 8.8, Neut % (Auto) 44.7, Lymph % (Auto) 46.4, [place] % (Auto) 5.2, Eos % (Auto) 0.8, Baso % (Auto) 2.9 H, Neut # (Auto) 4.9, Lymph # (Auto) 5.1 H, [place] # (Auto) 0.6, Eos # (Auto) 0.1, Baso # (Auto) 0.3 H 12/25/21 08:30: Sodium 135 L, Potassium 3.8, Chloride 99, Carbon Dioxide 29, Anion Gap 10.8, BUN 17, Creatinine 0.70, Estimated Creat Clear 149, Estimated GFR 90, Est GFR ( Amer) 109, Glucose 93, Calcium 9.0, Total Bilirubin 0.6, AST 35, ALT 26, Alkaline Phosphatase 74, Troponin I < 0.01, Total Protein 7.4, Albumin 4.4, Globulin 3.0, Albumin/Globulin Ratio 1.5, Lipase 83 12/25/21 10:52: Troponin I < 0.01 Result diagrams: 12/25/21 08:30 12/25/21 08:30 Orders (Tests/Meds): ED MEDICATIONS Discontinued Medications Generic Name Dose Route Start Last Admin Trade Name Brenna PRN Reason Stop Dose Admin Belladonna Alkaloids 60 ml 12/25/21 08:40 12/25/21 08:48 Gi Cocktail 60ml Udc PO 12/25/21 08:41 60 ml ONCE ONE Administration Famotidine 40 mg 12/25/21 08:40 12/25/21 08:49 Famotidine 20mg Tablet PO 12/25/21 08:41 40 mg ONCE ONE Administration Ketorolac Tromethamine 30 mg 12/25/21 08:48 12/25/21 08:49 Ketorolac 30mg/Ml Vial IV 12/25/21 08:49 30 mg ONCE ONE Administration Metoclopramide HCl 10 mg 12/25/21 08:38 12/25/21 08:45 Metoclopramide Hcl 10mg/2ml Vial IVP 12/25/21 08:39 10 mg ONCE ONE Administration Ondansetron HCl 8 mg 12/25/21 08:38 12/25/21 08:44 Ondansetron 4mg/2ml Vial IV 12/25/21 08:39 8 mg ONCE ONE Administration ORDERS Category Date Time Status Troponin I Q3H Lab 12/25/21 14:45 Ordered EKG Request [ECG Request by /Kelly] Stat Y 12/25/21 08:40 Ordered Medical Decision Narrative: ekg by tn sinus 58, qrs narrow, no st elev reeval, abd s/nt, pain redsolved, ok wiuty plan to f/u pcp General Adult HPI - General Stated complaint: severe abd pain, nausea Time Seen by Provider: 12/25/21 08:41 - History of Present Illness HPI narrative: upper ab dpain rad to left 1 day assoc with nausea moderate constant Onset (ago): day(s) Radiation: abdomen Severity: moderate Quality: dull Consistency: constant Relieving factors: none Exacerbating factors: none Associated symptoms: nausea/vomiting - Related Data Home Medications Medication Instructions Recorded Confirmed Omeprazole [Omeprazole 20mg 20 mg PO DAILY 05/26/20 06/20/21 Capsule] Previous Rx's Medication Instructions Recorded levothyroxine 50 mcg tablet 50 mcg PO DAILY #30 tab
[2021-12-25 08:47] VITALS: BMI 35.5
[2021-12-25 09:00] VITALS: BP 130/89; PULSE 68; RESP 18; O2SAT 100
[2021-12-25 09:01] LABS: Basophils # 0.3 K/mm3 (0-0.2); Basophils % 2.9 % (0.1-2.0); Chloride 99 mmol/L (98-107); Eosinophils # 0.1 K/mm3 (0.0-0.4); Eosinophils % 0.8 % (0.1-12.0); Hematocrit 44.5 % (37.0-47.0); Hemoglobin 14.4 g/dL (12.2-16.2); Lymphocytes # 5.1 K/mm3 (0.7-4.5); Lymphocytes % 46.4 % (10-50); Mean Corpuscular HGB Conc 32.4 g/dL (31.8-35.4); Mean Corpuscular Hemoglobin 30.2 pg (27.0-31.2); Mean Corpuscular Volume 93.3 fl (81-99); Mean Platelet Volume 8.8 fl (7.4-10.4); Monocytes # 0.6 K/mm3 (0.1-1.0); Monocytes % 5.2 % (1.7-9.3); Neutrophils # 4.9 K/mm3 (1.8-7.8); Neutrophils % 44.7 % (37.0-80.0); Platelet Count 321 K/mm3 (142-424); Potassium 3.8 mmoL/L (3.5-5.1); Red Blood Count 4.76 M/mm3 (4.20-5.40); Red Cell Distribution Width 13.7 % (11.5-17.5); Sodium 135 mmol/L (136-145); White Blood Count 10.9 K/mm3 (4.8-10.8)
[2021-12-25 09:04] LABS: Alanine Aminotransferase 26 U/L (12-78); Albumin Level 4.4 g/dl (3.5-5.0); Albumin/Globulin Ratio 1.5 (1.1-1.8); Alkaline Phosphatase 74 U/L (38-126); Anion Gap 10.8 mEq/L (5-15); Aspartate Amino Transferase 35 U/L (14-36); Bilirubin,Total 0.6 mg/dl (0.2-1.3); Blood Urea Nitrogen 17 mg/dl (7-17); Carbon Dioxide 29 mmol/L (22.0-30.0); Creatinine Clearance Estimated 149 mL/min (50-200); Estimated Glomerular Filt Rate 90 ml/min (>60); GFR (African American) 109 ML/MIN (>60); Glucose 93 mg/dl (74-100); Lipase 83 U/L (23-300); Total Protein,Serum 7.4 g/dl (6.3-8.2)
[2021-12-25 09:17] LABS: Troponin I < 0.01 ng/ml (0.00-0.034)
[2021-12-25 11:25] LABS: Troponin I < 0.01 ng/ml (0.00-0.034)
[2021-12-25 12:16] VITALS: BP 119/71; PULSE 68; RESP 18; TEMP 36.6; O2SAT 98
== END 2021-12-25 12:19 | disposition home or self-care (01) ==
PROVIDERS: Emergency Provider Emergency Medicine; PCP Family Medicine
DX: R10.13 Epigastric pain (principal); F41.9 Anxiety disorder, unspecified; Z88.0 Allergy status to penicillin; Z79.899 Other long term (current) drug therapy
CPT/HCPCS: 36415; 71045; 80053; 83690; 84484; 85025; 93005; 96365; 96375; 99283; J2405

== ENCOUNTER → 2022-01-03 15:44 | Outpatient (CLI) | payer OTHER, SELFPAY | PROVIDERS: PCP Family Medicine; Visit Provider Nurse Practitioner | DX: Z20.822 Contact with and (suspected) exposure to COVID-19 (principal) | CPT/HCPCS: C9803; U0003; U0005 ==

== ENCOUNTER → 2022-01-06 07:48 | Outpatient (CLI) | payer OTHER, SELFPAY ==
--- NOTE | 2022-01-06 07:48 | CT_ITS ---
FINAL REPORT CLINICAL HISTORY: dysphagia FINDINGS: Thin section axial CT images with coronal and sagittal reformats were performed before and after the administration of IV contrast. This study was performed with techniques to keep radiation doses as low as reasonably achievable (ALARA). Individualized dose reduction techniques using automated exposure control or adjustment of mA and/or kV according to the patient's size were employed. On the pre infusion images there is no evidence of a foreign body identified. On the post infusion images there is streak artifact from dental hardware. Cervical vasculature is well opacified. There is no significant adenopathy or mass lesion is present . The paranasal sinuses are well aerated. On the sagittal reconstruction images there is mild posterior osteophyte formation at C5-C6. IMPRESSION: No foreign body is identified. No significant mass or adenopathy is identified. Reviewed, Interpreted and Dictated by Ross Garcia MD Transcribed by Kesha Lynch Authenticated by Ross Garcia MD on 01/06/2022 09:56:04 AM [facility]
--- NOTE | 2022-01-06 07:48 | CT_ITS ---
FINAL REPORT CLINICAL HISTORY: diverticulitis COMPARISON: March 02, 2021 FINDINGS: Technique: The patient was injected with intravenous contrast. Oral contrast was administered. Axial images through the abdomen and pelvis were performed. This study was performed with techniques to keep radiation doses as low as reasonably achievable (ALARA). Individualized dose reduction techniques using automated exposure control or adjustment of mA and/or kV according to the patient's size were employed. Abdomen: There is calcified granuloma in the right lung base. The liver is homogeneous and normal in size. There is a low-attenuation focus in the posterior right lobe of the liver measuring 1.5 cm. The gallbladder is surgically absent. Calcified granulomas are noted in the spleen. The adrenals are normal. The pancreas is unremarkable. There are benign appearing cysts seen in both kidneys. The aorta is normal in caliber. There is no free fluid or adenopathy. There is a small hiatal hernia. Pelvis: The appendix is unremarkable. There is moderate sigmoid diverticulosis with no evidence of diverticulitis. The urinary bladder is unremarkable. There is no free fluid or adenopathy. IMPRESSION: Small hiatal hernia. Nonspecific low-attenuation focus in the right liver lobe which could represent a complex cyst. Correlation with ultrasound is recommended. Sigmoid diverticulosis without evidence of diverticulitis. Reviewed, Interpreted and Dictated by Ross Garcia MD Transcribed by Kesha Lynch Authenticated by Ross Garcia MD on 01/06/2022 11:17:10 AM [facility]
== END ==
PROVIDERS: PCP Family Medicine; Visit Provider Student in an Organized Health Care Education/Training Program
DX: K57.30 Diverticulosis of large intestine without perforation or abscess without bleeding (principal); E04.1 Nontoxic single thyroid nodule; R63.4 Abnormal weight loss
CPT/HCPCS: 70492; 74177; Q9967

== ENCOUNTER 2022-02-22 09:34 | Emergency (ER) | payer OTHER, SELFPAY ==
[2022-02-22 09:58] LABS: UTC Influenza A Antigen Negative (Negative)
[2022-02-22 09:59] LABS: UTC Influenza B Antigen Negative (Negative)
[2022-02-22 10:04] VITALS: BP 129/99; PULSE 75; RESP 19; TEMP 36.7; O2SAT 96; BMI 34.9
[2022-02-22 10:07] LABS: Strep Scrn Group A (Rapid) Negative (Negative)
--- NOTE | 2022-02-22 10:21 | HMH.EDUTC ---
[facility] [place] Disposition Clinical Impression: Bronchitis Sinusitis Qualifiers: Sinusitis location: unspecified location Chronicity: acute Recurrence: non-recurrent Qualified Code(s): J01.90 - Acute sinusitis, unspecified Disposition: Home, Self-Care Condition on Discharge: Good Instructions: DI for Sinusitis, DI for Acute Bronchitis Additional Instructions: Drink plenty of fluids. Take tylenol or ibuprofen for pain or fever. Take the medications as directed. Follow up with your regular doctor. GO TO THE ER FOR ANY WORSENING SYMPTOMS Prescriptions: Benzonatate [Benzonatate 100mg cap] 100 mg PO TIDP PRN #30 cap PRN Reason: Cough Transmission Status: Received by [facility] methylPREDNISolone [Medrol] 4 mg PO DIRECTED 6 Days #21 packet Transmission Status: Received by [facility] guaiFENesin [Mucinex 600mg tablet] 1 - 2 tab PO BIDP PRN #30 tab PRN Reason: Congestion Transmission Status: Received by [facility] Azithromycin [Z-Elton 250mg Tab*] 250 mg PO UD DOSE PK #6 tab Transmission Status: Received by [facility] Referrals: Juan Diego Matias MD [Primary Care Provider] - Time of Disposition: 10:25 Medical Decision Making - Medical Records Medical records reviewed: No: I reviewed the patient's medical records. - Piotr Inquiry Pt receiving controlled substance: No Vital Signs: 02/22/22 10:04 02/22/22 10:28 Temperature 98.1 F 98.1 F Temperature Source Oral Pulse Rate 75 Pulse Rate [Left] 75 Respiratory Rate 19 19 Blood Pressure 129/99 H Blood Pressure [Right Arm] 129/99 H Blood Pressure Mean [Right Arm] 109 02 Sat by Pulse Oximetry 96 - Lab Data Lab results reviewed: Yes: I reviewed the patient's lab results. Lab Results 02/22/22 09:44: Influenza Type A Ag Negative, Influenza Type B Ag Negative 02/22/22 09:45: Group A Strep Rapid Negative Orders (Tests/Meds): ORDERS Category Date Time Status Strep Screen Confirmation Stat Micro 02/22/22 09:45 Received [facility] [place] HPI - General Stated complaint: sore throat, loss of voice Time Seen by Provider: 02/22/22 10:05 Mode of Arrival: Ambulatory Source of Information: Patient Limitations: No Limitations Description of Symptoms (Recalled from Triage Doc. by RN): pt c/o a sore throat, body aches, cough and bilateral ear aches x4 days. HEENT Symptoms (Recalled from RN notes): Yes Resp Symptoms (Recalled from RN notes): Yes Skin Symptoms (Recalled from RN notes): No MS Symptoms (Recalled from RN notes): No Functional Status (Recalled from RN notes): wnl - History of Present Illness Provider Complaint: She c/o sore throat, bilateral ear pain and she has felt bad for the past 2 days. - Related Data Home Medications Medication Instructions Recorded Confirmed Omeprazole [Omeprazole 20mg 20 mg PO DAILY 05/26/20 02/05/22 Capsule] Escitalopram Oxalate 20 mg PO DAILY 02/05/22 Famotidine [Acid Procurement Cost Coordinator] 40 mg PO DAILY 02/05/22 Fluticasone Propionate [Flonase 1 spr NS DAILY 02/05/22 50mcg nasal spray 16gm] Levothyroxine Sodium [Synthroid 50 mcg PO DAILY 02/05/22 50mcg (0.05mg) tab] hydroCHLOROthiazide 12.5 mg PO DAILY 02/05/22 [Hydrochlorothiazide 12.5mg Tab] Previous Rx's Medication Instructions Recorded Azithromycin [Z-Elton 250mg Tab*] 250 mg PO UD DOSE PK #6 tab 02/22/22 Benzonatate [Benzonatate 100mg 100 mg PO TIDP PRN #30 cap 02/22/22 cap] guaiFENesin [Mucinex 600mg tablet] 1 - 2 tab PO BIDP PRN #30 tab 02/22/22 methylPREDNISolone [Medrol] 4 mg PO DIRECTED 6 Days #21 02/22/22 packet Allergies Allergy/AdvReac Type Severity Reaction Status Date / Time cefaclor [From Ceclor] Allergy Unknown Verified 02/05/22 13:16 allergy reaction morphine Allergy Chest Pain Verified 02/05/22 13:16 Penicillins Allergy Unknown Verified 02/05/22 13:16 allergy reaction - Worker's Comp Is this a Worker's Comp case?: No H History
[2022-02-22 10:28] VITALS: BP 129/99; PULSE 75; RESP 19; TEMP 36.7
== END 2022-02-22 10:33 | disposition home or self-care (01) ==
PROVIDERS: Emergency Provider Nurse Practitioner Family; PCP Family Medicine
DX: J01.90 Acute sinusitis, unspecified (principal); H92.03 Otalgia, bilateral; F41.9 Anxiety disorder, unspecified; Z88.0 Allergy status to penicillin; Z88.5 Allergy status to narcotic agent; Z88.8 Allergy status to other drugs, medicaments and biological substances; Z82.49 Family history of ischemic heart disease and other diseases of the circulatory system; Z80.9 Family history of malignant neoplasm, unspecified
CPT/HCPCS: 87430; 87804; 99213; G0463

== ENCOUNTER 2022-03-27 09:12 | Emergency (ER) | payer OTHER, SELFPAY ==
[2022-03-27 09:44] VITALS: BP 143/86; PULSE 81; RESP 16; TEMP 37.4; O2SAT 97; BMI 39.0
--- NOTE | 2022-03-27 09:55 | HMH.EDUTC ---
[facility] [facility] [place] Clinical Impression: URI (upper respiratory infection) Qualifiers: URI type: unspecified viral URI Qualified Code(s): J06.9 - Acute upper respiratory infection, unspecified Disposition: Home, Self-Care Condition on Discharge: Good Instructions: DI for Viral Upper Respiratory Infection -- Adult Additional Instructions: covid swab was sent to lab, call later today for results. self isolate until test results are known to be negative No sign of a bacterial infection. Likely viral. Viruses can take 7-14 days to run their course. Nasal saline and bulb syringe or nose Kristina to remove nasal drainage to help with nasal congestion. Hard to eat, drink, sleep with nasal congestion so important to keep this cleaned out. Monitor temp. Tylenol or Motrin as needed for pain or fever Encourage fluids, water, Gatorade, Powerade, Pedialyte if infant/toddler/child Warm salt water gargles Warm fluids Sore throat lozenges Sleep elevated Humidifier/vaporizer Follow-up immediately for new or worsening symptoms or no noticeable improvement over the next 48-72 hours. start steroids tomorrow Prescriptions: Fluticasone Propionate [Flonase 50mcg nasal spray 16gm] 1 spr NS DAILY 14 Days #9.9 ml Transmission Status: Pending to [facility] predniSONE [Prednisone 20mg Tab] 20 mg PO BID #10 tab Transmission Status: Pending to [facility] Referrals: Juan Diego Matias MD [Primary Care Provider] - Time of Disposition: 09:59 Medical Decision Making - Piotr Inquiry Pt receiving controlled substance: No Vital Signs: 03/27/22 09:44 Temperature 99.4 F Temperature Source Oral Pulse Rate [Radial] 81 Respiratory Rate 16 Blood Pressure [Right Arm] 143/86 H Blood Pressure Mean [Right Arm] 105 02 Sat by Pulse Oximetry 97 Orders (Tests/Meds): ED MEDICATIONS Discontinued Medications Generic Name Dose Route Start Last Admin Trade Name Freq PRN Reason Stop Dose Admin Dexamethasone Sodium Phosphate 4 mg 03/27/22 09:54 Dexamethasone 4mg/Ml 1ml Vial IM 03/27/22 09:55 ONCE ONE ORDERS Category Date Time Status Upper Respiratory Panel, PCR Routine Lab 03/27/22 09:54 Ordered [facility] [place] - General Chief complaint: [facility] Stated complaint: cough, body aches, congestion, bilateral ear pain Time Seen by Provider: 03/27/22 09:55 Mode of Arrival: Ambulatory Source of Information: Patient Limitations: No Limitations Description of Symptoms (Recalled from Triage Doc. by RN): pt c/o congestion with cough, ear pain, body aches. she had tylenol last at 10pm HEENT Symptoms (Recalled from RN notes): Yes Resp Symptoms (Recalled from RN notes): Yes Skin Symptoms (Recalled from RN notes): No MS Symptoms (Recalled from RN notes): No Functional Status (Recalled from RN notes): wnl - History of Present Illness Provider Complaint: 46 yr old female presents with c/o cough,soa,nasal congestion, ear pressure and body aches since - Related Data Home Medications Medication Instructions Recorded Confirmed Omeprazole [Omeprazole 20mg 20 mg PO DAILY 05/26/20 02/05/22 Capsule] Escitalopram Oxalate 20 mg PO DAILY 02/05/22 Famotidine [Acid Operations Section Manager] 40 mg PO DAILY 02/05/22 Fluticasone Propionate [Flonase 1 spr NS DAILY 02/05/22 50mcg nasal spray 16gm] Levothyroxine Sodium [Synthroid 50 mcg PO DAILY 02/05/22 50mcg (0.05mg) tab] hydroCHLOROthiazide 12.5 mg PO DAILY 02/05/22 [Hydrochlorothiazide 12.5mg Tab] Previous Rx's Medication Instructions Recorded Azithromycin [Z-Elton 250mg Tab*] 250 mg PO UD DOSE PK #6 tab 02/22/22 Benzonatate [Benzonatate 100mg 100 mg PO TIDP PRN #30 cap 02/22/22 cap] guaiFENesin [Mucinex 600mg tablet] 1 - 2 tab PO BIDP PRN #30 tab 02/22/22 methylPREDNISolone [Medrol] 4 mg PO DIRECTED 6 Days #21 02/22/22 packet Fluticasone Propionate [Flonase 1 spr NS DAILY 14 Days #9.9 ml 03/27/22 50mcg nasal spray 16gm] predniSONE [Pre
[2022-03-27 10:03] LABS: UTC Influenza A Antigen Negative (Negative); UTC Influenza B Antigen Negative (Negative)
[2022-03-27 10:28] VITALS: BP 143/86; PULSE 81; RESP 16; TEMP 37.4
[2022-03-28 10:06] LABS: Adenovirus,PCR Not Detected (NotDetected); Bordetella Pertussis Not Detected (NotDetected); Chlamydophila Pneumoniae, PCR Not Detected (NotDetected); Coronavirus 19, PCR Not Detected (NotDetected); Coronavirus NL63 Not Detected (NotDetected); Coronavirus OC43 Not Detected (NotDetected); Coronovirus HKU1,PCR Not Detected (NotDetected); Human Metapneumovirus Not Detected (NotDetected); Influenza A, PCR Not Detected (NotDetected); Influenza AH1, 2009 Not Detected (NotDetected); Influenza AH1, PCR Not Detected (NotDetected); Influenza AH3,PCR Not Detected (NotDetected); Influenza B, PCR Not Detected (NotDetected); Mycoplasma Pneumoniae, PCR Not Detected (NotDetected); Parainfluenza 1, PCR Not Detected (NotDetected); Parainfluenza 2, PCR Not Detected (NotDetected); Parainfluenza 3, PCR Not Detected (NotDetected); Parainfluenza 4, PCR Not Detected (NotDetected); Respiratory Syncytial Virus Not Detected (NotDetected); Rhinovirus/Enterovirus Not Detected (NotDetected)
[2022-03-28 12:19] LABS: Coronavirus 229E Detected (NotDetected)
== END 2022-03-27 10:29 | disposition home or self-care (01) ==
PROVIDERS: Emergency Provider Nurse Practitioner Family; PCP Family Medicine
DX: J06.9 Acute upper respiratory infection, unspecified (principal); H92.03 Otalgia, bilateral; M79.10 Myalgia, unspecified site; F41.9 Anxiety disorder, unspecified; Z79.52 Long term (current) use of systemic steroids; Z79.899 Other long term (current) drug therapy; Z20.822 Contact with and (suspected) exposure to COVID-19; Z88.0 Allergy status to penicillin; Z88.5 Allergy status to narcotic agent; Z88.8 Allergy status to other drugs, medicaments and biological substances; Z82.49 Family history of ischemic heart disease and other diseases of the circulatory system; Z80.9 Family history of malignant neoplasm, unspecified
CPT/HCPCS: 87581; 87632; 87798; 87804; 99213; C9803; G0463; U0003; U0005

== ENCOUNTER 2022-03-29 11:47 | Emergency (ER) | payer OTHER, SELFPAY ==
--- NOTE | 2022-03-29 11:54 | XR_ITS ---
PROCEDURE INFORMATION: Exam: XR Chest Exam date and time: 03/29/2022 11:50 AM Age: 46 years old Clinical indication: Cough and shortness of breath; Additional info: Congestion, cough, SOB TECHNIQUE: Imaging protocol: XR of the chest. Views: 2 views. COMPARISON: CR XR CHEST PORTABLE 12/25/2021 8:44 AM FINDINGS: Lungs: Unremarkable. No consolidation. Pleural spaces: Unremarkable. No pleural effusion. No pneumothorax. Heart/Mediastinum: Unremarkable. No cardiomegaly. Bones/joints: Unremarkable. IMPRESSION: No acute findings.
[2022-03-29 12:00] VITALS: BP 108/67; PULSE 88; RESP 18; TEMP 36.8; O2SAT 100; BMI 35.2
--- NOTE | 2022-03-29 12:20 | HMH.EDUTC ---
[facility] – [place] Disposition Clinical Impression: Viral syndrome Acute bronchitis Qualifiers: Bronchitis organism: unspecified organism Qualified Code(s): J20.9 - Acute bronchitis, unspecified Disposition: Home, Self-Care Condition on Discharge: Good Instructions: Acute Bronchitis, DI for Acute Bronchitis Additional Instructions: Drink plenty of fluids. Take tylenol or ibuprofen for pain or fever. Take the medications as directed. Follow up with your regular doctor. GO TO THE ER FOR ANY WORSENING SYMPTOMS The cough medication (promethazine dm) will make you drowsy, so don't drive or operate heavy machinery after taking it. continue the steroids that you are on. Use the inhaler that you were prescribed if it helps. Start the antibiotics. Take the cough syrup if you have a cough that is interfering with sleep. Prescriptions: Promethazine/Dextromethorphan [Promethazine-Dm Syrup] 5 ml PO Q6HP PRN #240 ml PRN Reason: Cough Transmission Status: Received by [facility] Azithromycin [Z-Elton 250mg Tab*] 250 mg PO UD DOSE PK #6 tab Transmission Status: Received by [facility] Referrals: Juan Diego Matias MD [Primary Care Provider] - Time of Disposition: 13:11 Medical Decision Making - Medical Records Medical records reviewed: No: I reviewed the patient's medical records. - Piotr Inquiry Pt receiving controlled substance: No Vital Signs: 03/29/22 12:00 03/29/22 13:15 Temperature 98.2 F 98.2 F Temperature Source Oral Pulse Rate 88 Pulse Rate [Right Brachial] 88 Respiratory Rate 18 18 Blood Pressure 108/67 L Blood Pressure [Right Arm] 108/67 L Blood Pressure Mean [Right Arm] 80 Blood Pressure Source [Right Arm] Automatic Cuff Blood Pressure Position [Right Arm] Sitting 02 Sat by Pulse Oximetry 100 Oxygen Delivery Method Room Air - Radiology Data #1 Image(s): Chest Image Reviewed: Yes I reviewed the patient's radiology image, Yes I have reviewed radiologist's interpretation Preliminary Findings: Normal/NAD, No Infiltrates Seen PROCEDURE INFORMATION: Exam: XR Chest Exam date and time: 03/29/2022 11:50 AM Age: 46 years old Clinical indication: Cough and shortness of breath; Additional info: Congestion, cough, SOB TECHNIQUE: Imaging protocol: XR of the chest. Views: 2 views. COMPARISON: CR XR CHEST PORTABLE 12/25/2021 8:44 AM FINDINGS: Lungs: Unremarkable. No consolidation. Pleural spaces: Unremarkable. No pleural effusion. No pneumothorax. Heart/Mediastinum: Unremarkable. No cardiomegaly. Bones/joints: Unremarkable. IMPRESSION: No acute findings. [facility] [place] [facility] - General Stated complaint: chest congestion, cough Time Seen by Provider: 03/29/22 12:20 Mode of Arrival: Ambulatory Source of Information: Patient Limitations: No Limitations Description of Symptoms (Recalled from Triage Doc. by RN): PATIENT C/O PRODUCTIVE COUGH WITH GREEN/BLOOD-TINGED SPUTUM HEENT Symptoms (Recalled from RN notes): No Resp Symptoms (Recalled from RN notes): Yes Skin Symptoms (Recalled from RN notes): No MS Symptoms (Recalled from RN notes): No Functional Status (Recalled from RN notes): WNL - History of Present Illness Provider Complaint: She states that she was diagnosed with a dennison virus (not covid-19) 3 days ago. She is having chest and sinus congestion, fever, chills and malaise. She was started on steroids then. She states that over the past 1 day she has began to feel worse and have a worsening productive cough with greenish sputum. - Related Data Home Medications Medication Instructions Recorded Confirmed Omeprazole [Omeprazole 20mg 20 mg PO DAILY 05/26/20 02/05/22 Capsule] Escitalopram Oxalate 20 mg PO DAILY 02/05/22 Famotidine [Acid Triple Air Valve Tester] 40 mg PO DAILY 02/05/22 Fluticasone Propionate [Flonase 1 spr NS DAILY 02/05/22 50mcg nasal spray 16gm] Levothyroxine Sodium [Syn
[2022-03-29 13:15] VITALS: BP 108/67; PULSE 88; RESP 18; TEMP 36.8; O2SAT 100
== END 2022-03-29 13:18 | disposition home or self-care (01) ==
PROVIDERS: Emergency Provider Nurse Practitioner Family; PCP Family Medicine
DX: J20.9 Acute bronchitis, unspecified (principal); B34.8 Other viral infections of unspecified site; Z88.0 Allergy status to penicillin; Z88.5 Allergy status to narcotic agent
CPT/HCPCS: 71046; 99212; G0463

== ENCOUNTER → 2022-05-06 14:20 | Outpatient (POV) | payer OTHER, SELFPAY | PROVIDERS: Visit Provider Dermatology | DX: Z00.00 Encounter for general adult medical examination without abnormal findings (principal) ==

== ENCOUNTER 2022-06-04 09:14 | Emergency (ER) | payer OTHER, SELFPAY ==
--- NOTE | 2022-06-04 09:18 | HMH.EDUTC ---
[facility] [place] Clinical Impression: Diverticulitis Disposition: Home, Self-Care Condition on Discharge: Good Instructions: DI for Diverticulitis Additional Instructions: Drink plenty of fluids. Take tylenol or ibuprofen for pain or fever. Take the medications as directed. Follow up with your regular doctor. GO TO THE ER FOR ANY WORSENING SYMPTOMS Prescriptions: Ondansetron [Zofran 4mg ODT] 4 mg PO Q8HP PRN #20 tab PRN Reason: Nausea Transmission Status: Received by [facility] Ondansetron [Zofran 4mg ODT] 4 mg PO Q8HP PRN #20 tab PRN Reason: Nausea Transmission Status: Received by [facility] Ciprofloxacin HCl [Cipro 500mg Tab] 500 mg PO BID 10 Days #20 tab Transmission Status: Received by [facility] metroNIDAZOLE [Metronidazole] 500 mg PO BID 10 Days #20 tab Transmission Status: Received by [facility] Referrals: Juan Diego Matias MD [Primary Care Provider] - Time of Disposition: 09:54 Medical Decision Making - Medical Records Medical records reviewed: No: I reviewed the patient's medical records. - Piotr Inquiry Pt receiving controlled substance: No Vital Signs: 06/04/22 09:43 06/04/22 10:03 Temperature 98.6 F 98.6 F Temperature Source Oral Oral Pulse Rate 75 Pulse Rate [Left Radial] 73 Respiratory Rate 18 17 Blood Pressure 112/70 Blood Pressure [Right Arm] 110/78 Blood Pressure Mean [Right Arm] 88 02 Sat by Pulse Oximetry 95 Oxygen Delivery Method Room Air Room Air [facility] [place] HPI - General Stated complaint: Diverticulitis Symptoms Time Seen by Provider: 06/04/22 09:18 - History of Present Illness Provider Complaint: She has had abdominal pain, nausea and low grade fever for the past 1 day. She has a history of diverticulitis and states that this is what's causing her symptoms at this time. - Related Data Home Medications Medication Instructions Recorded Confirmed Omeprazole [Omeprazole 20mg 20 mg PO DAILY 05/26/20 02/05/22 Capsule] Escitalopram Oxalate 20 mg PO DAILY 02/05/22 Famotidine [Acid Content Analyst] 40 mg PO DAILY 02/05/22 Fluticasone Propionate [Flonase 1 spr NS DAILY 02/05/22 50mcg nasal spray 16gm] Levothyroxine Sodium [Synthroid 50 mcg PO DAILY 02/05/22 50mcg (0.05mg) tab] hydroCHLOROthiazide 12.5 mg PO DAILY 02/05/22 [Hydrochlorothiazide 12.5mg Tab] Previous Rx's Medication Instructions Recorded Azithromycin [Z-Elton 250mg Tab*] 250 mg PO UD DOSE PK #6 tab 02/22/22 Benzonatate [Benzonatate 100mg 100 mg PO TIDP PRN #30 cap 02/22/22 cap] guaiFENesin [Mucinex 600mg tablet] 1 - 2 tab PO BIDP PRN #30 tab 02/22/22 methylPREDNISolone [Medrol] 4 mg PO DIRECTED 6 Days #21 02/22/22 packet Fluticasone Propionate [Flonase 1 spr NS DAILY 14 Days #9.9 ml 03/27/22 50mcg nasal spray 16gm] predniSONE [Prednisone 20mg 20 mg PO BID #10 tab 03/27/22 Tab] albuterol sulfate 90 mcg/actuation 1 puff IH Q6H #6.7 g 03/28/22 aerosol inhaler Azithromycin [Z-Elton 250mg Tab*] 250 mg PO UD DOSE PK #6 tab 03/29/22 Promethazine/Dextromethorphan 5 ml PO Q6HP PRN #240 ml 03/29/22 [Promethazine-Dm Syrup] Ciprofloxacin HCl [Cipro 500mg 500 mg PO BID 10 Days #20 tab 06/04/22 Tab] Ondansetron [Zofran 4mg ODT] 4 mg PO Q8HP PRN #20 tab 06/04/22 Ondansetron [Zofran 4mg ODT] 4 mg PO Q8HP PRN #20 tab 06/04/22 metroNIDAZOLE [Metronidazole] 500 mg PO BID 10 Days #20 tab 06/04/22 Allergies Allergy/AdvReac Type Severity Reaction Status Date / Time cefaclor [From [facility]] Allergy Unknown Verified 03/27/22 09:46 allergy reaction morphine Allergy Chest Pain Verified 03/27/22 09:46 Penicillins Allergy Unknown Verified 03/27/22 09:46 allergy reaction [facility] History - Hepatitis A Screen Attestation statement:: This patient has been screened for Hepatitis A risk factors. I have reviewed the patient's past medical history: Yes Medical History: Reports:: Anxi
[2022-06-04 09:43] VITALS: BP 110/78; PULSE 73; RESP 18; TEMP 37; O2SAT 95; BMI 36.0
[2022-06-04 10:03] VITALS: BP 112/70; PULSE 75; RESP 17; TEMP 37; O2SAT 96
== END 2022-06-04 10:04 | disposition home or self-care (01) ==
PROVIDERS: Emergency Provider Nurse Practitioner Family; PCP Family Medicine
DX: K57.32 Diverticulitis of large intestine without perforation or abscess without bleeding (principal); Z79.899 Other long term (current) drug therapy
CPT/HCPCS: 99212; G0463

== ENCOUNTER 2022-08-10 13:37 | Emergency (ER) | payer OTHER, SELFPAY ==
[2022-08-10 14:15] VITALS: BP 139/100; PULSE 78; RESP 21; TEMP 36.9; O2SAT 95; BMI 36.0
--- NOTE | 2022-08-10 14:23 | EXP.UTC ---
Discharge Plan Disposition Patient Disposition: Home, Self-Care Condition: Good Prescriptions Prescriptions: New azithromycin [Zithromax] 250 mg tablet 250 mg PO UD DOSE PK Qty: 6 0RF Rx Instructions: Take two (2) tablets today, then one (1) tablet days #2 thru #5 benzonatate [benzonatate] 100 mg capsule 100 mg PO TIDP PRN (Reason: Cough) Qty: 30 0RF ondansetron 4 mg Tablet,Disintegrating 4 mg PO Q8H PRN (Reason: Nausea) Qty: 12 0RF No Action famotidine 20 MG tablet 40 mg PO DAILY levothyroxine 50 MCG tablet 50 mcg PO DAILY fluticasone propionate 120 SPR/BOT bottle 1 spr NS DAILY escitalopram oxalate 20 MG tablet 20 mg PO DAILY hydrochlorothiazide 12.5 MG tablet 12.5 mg PO DAILY albuterol sulfate [Ventolin HFA] 90 mcg/actuation HFA aerosol inhaler 1 puff IH Q6H Qty: 6.7 0RF Rx Instructions: administer with spacer omeprazole 20 MG capsule,delayed release(DR/EC) 20 mg PO DAILY azithromycin 250 MG tablet 250 mg PO UD DOSE PK Qty: 6 0RF Rx Instructions: Take two (2) tablets today, then one (1) tablet days #2 thru #5 benzonatate 100 MG capsule 100 mg PO TIDP PRN (Reason: Cough) Qty: 30 0RF methylprednisolone 4 MG tablets,dose pack 4 mg PO DIRECTED 6 Days Qty: 21 0RF guaifenesin 600 MG tablet extended release 12hr 1 - 2 tab PO BIDP PRN (Reason: Congestion) Qty: 30 0RF prednisone 20 MG tablet 20 mg PO BID Qty: 10 0RF fluticasone propionate 120 SPR/BOT bottle 1 spr NS DAILY 14 Days Qty: 9.9 0RF promethazine-DM 120 ML syrup 5 ml PO Q6HP PRN (Reason: Cough) Qty: 240 0RF azithromycin 250 MG tablet 250 mg PO UD DOSE PK Qty: 6 0RF Rx Instructions: Take two (2) tablets today, then one (1) tablet days #2 thru #5 ciprofloxacin HCl 500 MG tablet 500 mg PO BID 10 Days Qty: 20 0RF ondansetron 4 MG tablet,disintegrating 4 mg PO Q8HP PRN (Reason: Nausea) Qty: 20 0RF metronidazole 500 MG tablet 500 mg PO BID 10 Days Qty: 20 0RF ondansetron 4 MG tablet,disintegrating 4 mg PO Q8HP PRN (Reason: Nausea) Qty: 20 0RF Referrals Follow up/Referrals: Juan Diego Matias MD [Primary Care Provider] - See instructions Activity Restrictions/Add. Instructions Additional Instructions/Restrictions: Drink plenty of fluids. Take tylenol or ibuprofen for pain or fever. Take the medications as directed. Follow up with your regular doctor. GO TO THE ER FOR ANY WORSENING SYMPTOMS Throw your tooth brush away and get a new one. Quarantine until you know the results of your covid-19 test. Notify your school or workplace of your results and follow their instructions regarding return to work/school. Clinical Impressions Clinical Impression: Strep throat, Viral syndrome Stand Alone Forms Stand Alone Forms: Work/School Release Discharge ED Provider: Juan Bridges [facility] [place] General Stated complaint: sore throat,headache,congested Time Seen by Provider: 08/10/22 14:21 History of Present Illness Provider Complaint: She has had sore throat, chills, body aches and a dry cough for the past 1 day. Related Data Home Medications Medication Instructions Recorded Confirmed omeprazole 20 mg capsule,delayed 20 mg PO DAILY acid reflux 05/26/20 02/05/22 release escitalopram oxalate 20 mg tablet 20 mg PO DAILY Depression 02/05/22 famotidine 20 mg tablet 40 mg PO DAILY GERD 02/05/22 fluticasone propionate 50 1 spr NS DAILY allergies 02/05/22 mcg/actuation nasal spray,suspension hydrochlorothiazide 12.5 mg tablet 12.5 mg PO DAILY High blood 02/05/22 pressure levothyroxine 50 mcg tablet 50 mcg PO DAILY Supplement 02/05/22 Previous Rx's Medication Instructions Recorded azithromycin 250 mg tablet 250 mg PO UD DOSE PK #6 tabs 02/22/22 benzonatate 100 mg capsule 100 mg PO TIDP PRN Cough #30 caps 02/22/22 guaifenesin 600 mg tablet, 1 - 2 tab PO BIDP PRN Congestion 02/22
[2022-08-10 14:32] LABS: UTC Strep Screen (Rapid) Positive (Negative)
[2022-08-10 14:41] LABS: Adenovirus,PCR Not Detected (NotDetected); Bordetella Pertussis Not Detected (NotDetected); Chlamydophila Pneumoniae, PCR Not Detected (NotDetected); Coronavirus 229E Not Detected (NotDetected); Coronavirus NL63 Not Detected (NotDetected); Coronavirus OC43 Not Detected (NotDetected); Coronovirus HKU1,PCR Not Detected (NotDetected); Human Metapneumovirus Not Detected (NotDetected); Influenza A, PCR Not Detected (NotDetected); Influenza AH1, 2009 Not Detected (NotDetected); Influenza AH1, PCR Not Detected (NotDetected); Influenza AH3,PCR Not Detected (NotDetected); Influenza B, PCR Not Detected (NotDetected); Mycoplasma Pneumoniae, PCR Not Detected (NotDetected); Parainfluenza 1, PCR Not Detected (NotDetected); Parainfluenza 2, PCR Not Detected (NotDetected); Parainfluenza 3, PCR Not Detected (NotDetected); Parainfluenza 4, PCR Not Detected (NotDetected); Respiratory Syncytial Virus Not Detected (NotDetected); Rhinovirus/Enterovirus Not Detected (NotDetected)
[2022-08-10 14:43] VITALS: BP 139/100; PULSE 78; RESP 21; TEMP 36.9; O2SAT 95
[2022-08-10 16:28] LABS: Coronavirus 19, PCR Detected (NotDetected)
== END 2022-08-10 15:01 | disposition home or self-care (01) ==
PROVIDERS: Emergency Provider Nurse Practitioner Family; PCP Family Medicine
DX: U07.1 COVID-19 (principal); J02.0 Streptococcal pharyngitis
CPT/HCPCS: 87581; 87632; 87798; 87880; 96372; 99212; C9803; G0463; U0003; U0005

== ENCOUNTER 2022-11-11 20:39 | Emergency (ER) | payer OTHER, SELFPAY ==
[2022-11-11 22:50] VITALS: BP 132/76; PULSE 70; RESP 18; TEMP 36.7; O2SAT 99; BMI 36.3
[2022-11-11 22:53] LABS: Microscopic, Urine URINE MICROSCOPIC (MICROSCOPIC)
[2022-11-11 23:11] LABS: Appearance,Urine CLEAR (Clear); Bilirubin,Urine Negative (Negative); Blood, Urine Negative (Negative); Color,Urine YELLOW (Yellow); Glucose,Urine (UA) Negative (Negative); Ketones,Urine Negative (Negative); Leukocyte Esterase,Urine Negative (Negative); Nitrate,Urine Negative (Negative); Protein,Urine Negative (Negative); Urobilinogen,Urine 0.2 EU/dl (0.2)
--- NOTE | 2022-11-11 23:20 | CT_ITS ---
PROCEDURE INFORMATION: Exam: CT Abdomen And Pelvis With Contrast Exam date and time: 11/11/2022 11:57 PM Age: 47 years old Clinical indication: Abdominal pain; Prior surgery; Surgery date: 6+ months; Surgery type: Partial hysterectomy; Patient HX: PT C/O epigastric pain with bloating since cathy; Additional info: Epigastric, luq abd pain with nausea TECHNIQUE: Imaging protocol: Computed tomography of the abdomen and pelvis with contrast. Radiation optimization: All CT scans at this facility use at least one of these dose optimization techniques: automated exposure control; mA and/or kV adjustment per patient size (includes targeted exams where dose is matched to clinical indication); or iterative reconstruction. Contrast material: ISOVUE; Contrast volume: 75 ml; Contrast route: IV; Other contrast: Oral, gastro, 15; COMPARISON: CT ABDOMEN PELVIS W CON 01/06/2022 8:19 AM FINDINGS: Lungs: No acute finding. Diaphragm: A small hiatal hernia is present. Liver: 8 x 13 mm segment 7 hepatic hypodensity consistent with a cyst. Mild hepatic steatosis is evident. Gallbladder and bile ducts: The gallbladder is absent. There is no biliary ductal dilation. Pancreas: Normal. No ductal dilation. Spleen: Calcified splenic granulomata are noted. Adrenal glands: Normal. No mass. Kidneys and ureters: Normal. No hydronephrosis. Stomach and bowel: Left colon diverticulosis is present without inflammation. Appendix: No evidence of appendicitis. Intraperitoneal space: Unremarkable. No free air. No significant fluid collection. Vasculature: Unremarkable. No abdominal aortic aneurysm. Lymph nodes: Unremarkable. No enlarged lymph nodes. Urinary bladder: Unremarkable as visualized. Reproductive: The uterus is absent. Bones/joints: Unremarkable. No acute fracture. Soft tissues: A tiny fat containing umbilical hernia is noted. IMPRESSION: There is no acute finding within the abdomen or pelvis.
[2022-11-11 23:26] LABS: Basophils # 0.1 K/mm3 (0-0.2); Basophils % 1.5 % (0.1-2.0); Eosinophils # 0.2 K/mm3 (0.0-0.4); Eosinophils % 2.6 % (0.1-12.0); Hematocrit 43.7 % (37.0-47.0); Hemoglobin 14.4 g/dL (12.2-16.2); Lymphocytes # 2.3 K/mm3 (0.7-4.5); Lymphocytes % 40.8 % (10-50); Mean Corpuscular Hemoglobin 30.4 pg (27.0-31.2); Mean Corpuscular Volume 92.1 fl (81-99); Monocytes # 0.3 K/mm3 (0.1-1.0); Monocytes % 5.1 % (1.7-9.3); Neutrophils # 2.8 K/mm3 (1.8-7.8); Neutrophils % 49.9 % (37.0-80.0); Platelet Count 241 K/mm3 (142-424); Red Blood Count 4.75 M/mm3 (4.20-5.40); Red Cell Distribution Width 13.1 % (11.5-17.5); White Blood Count 5.6 K/mm3 (4.8-10.8)
[2022-11-11 23:36] LABS: Alanine Aminotransferase 24 U/L (12-78); Albumin Level 4.5 g/dl (3.5-5.0); Albumin/Globulin Ratio 1.4 (1.1-1.8); Alkaline Phosphatase 95 U/L (38-126); Amylase 76 U/L (30-110); Anion Gap 11.4 mEq/L (5-15); Aspartate Amino Transferase 35 U/L (14-36); Bilirubin,Total 0.4 mg/dl (0.2-1.3); Blood Urea Nitrogen 13 mg/dl (7-17); Calcium 9.3 mg/dl (8.4-10.2); Carbon Dioxide 28 mmol/L (22.0-30.0); Chloride 104 mmol/L (98-107); Creatinine Clearance Estimated 151 mL/min (50-200); Estimated Glomerular Filt Rate 90 ml/min (>60); GFR (African American) 109 ML/MIN (>60); Globulin 3.2 g/dL (1.3-3.2); Glucose 97 mg/dl (74-100); Lipase 106 U/L (23-300); Potassium 3.4 mmoL/L (3.5-5.1); Sodium 140 mmol/L (136-145); Total Protein,Serum 7.7 g/dl (6.3-8.2)
[2022-11-11 23:38] LABS: Lactic Acid 0.6 mmol/L (0.7-2.1)
[2022-11-11 23:41] LABS: C-Reactive Protein 11.9 mg/L (0-4)
--- NOTE | 2022-11-11 23:44 | CT_ITS ---
PROCEDURE INFORMATION: Exam: CT Chest Without Contrast; Diagnostic Exam date and time: 11/11/2022 11:54 PM Age: 47 years old Clinical indication: Patient HX: PT states epigastric pain with bloating since roddy cathy after she choked on a cracker; Additional info: Epigastric pain, choked on a cracker TECHNIQUE: Imaging protocol: Diagnostic computed tomography of the chest without contrast. Radiation optimization: All CT scans at this facility use at least one of these dose optimization techniques: automated exposure control; mA and/or kV adjustment per patient size (includes targeted exams where dose is matched to clinical indication); or iterative reconstruction. Other contrast: Oral, gastro, 15; COMPARISON: CR XR CHEST 2V 03/29/2022 11:50 AM FINDINGS: Lungs: Calcified granuloma at the posterior right lung base. Linear density within the anterior right middle lobe consistent with scarring or subsegmental atelectasis. No consolidation. No masses. Pleural spaces: Unremarkable. No pneumothorax. No pleural effusion. Heart: Unremarkable. No cardiomegaly. No pericardial effusion. There are no coronary artery calcifications. Lymph nodes: Calcified right hilar mediastinal lymph nodes. Vasculature: Unremarkable. No aortic aneurysm. Diaphragm: A small hiatal hernia is present. Bones/joints: Unremarkable. No acute fracture. Soft tissues: Unremarkable. Other findings: 8 x 13 mm segment 7 hypodensity not fully characterized. IMPRESSION: 1. There is no acute cardiopulmonary abnormality. 2. Findings consistent with prior granulomatous exposure. 3. Small hiatal hernia. 4. 8 x 13 mm hepatic hypodensity not fully characterized.
--- NOTE | 2022-11-11 23:47 | PC.NURSE ---
Patient took oral contrast. Will wait 5 minutes per md order for ct scan. Kika with radiology is here to take patient and is waiting for the time limit to lapse.
[2022-11-11 23:52] LABS: Squamous Epithelial Cell,Urine Occasional #/hpf (0-5)
[2022-11-11 23:55] LABS: Procalcitonin 0.031 ng/mL (0.0-2.0); T4 (Thyroxine) 8.7 ug/dl (5.53-11.0)
--- NOTE | 2022-11-12 00:03 | HMH.EDABDPAI ---
Discharge Plan Disposition Patient Disposition: Home, Self-Care Chief Complaint: Abdominal Pain Prescriptions Prescriptions: No Action famotidine 20 MG tablet 40 mg PO DAILY levothyroxine 50 MCG tablet 50 mcg PO DAILY fluticasone propionate 120 SPR/BOT bottle 1 spr NS DAILY escitalopram oxalate 20 MG tablet 20 mg PO DAILY hydrochlorothiazide 12.5 MG tablet 12.5 mg PO DAILY albuterol sulfate [Ventolin HFA] 90 mcg/actuation HFA aerosol inhaler 1 puff IH Q6H Qty: 6.7 0RF Rx Instructions: administer with spacer omeprazole 20 MG capsule,delayed release(DR/EC) 20 mg PO DAILY azithromycin 250 MG tablet 250 mg PO UD DOSE PK Qty: 6 0RF Rx Instructions: Take two (2) tablets today, then one (1) tablet days #2 thru #5 benzonatate 100 MG capsule 100 mg PO TIDP PRN (Reason: Cough) Qty: 30 0RF methylprednisolone 4 MG tablets,dose pack 4 mg PO DIRECTED 6 Days Qty: 21 0RF guaifenesin 600 MG tablet extended release 12hr 1 - 2 tab PO BIDP PRN (Reason: Congestion) Qty: 30 0RF prednisone 20 MG tablet 20 mg PO BID Qty: 10 0RF fluticasone propionate 120 SPR/BOT bottle 1 spr NS DAILY 14 Days Qty: 9.9 0RF promethazine-DM 120 ML syrup 5 ml PO Q6HP PRN (Reason: Cough) Qty: 240 0RF azithromycin 250 MG tablet 250 mg PO UD DOSE PK Qty: 6 0RF Rx Instructions: Take two (2) tablets today, then one (1) tablet days #2 thru #5 ciprofloxacin HCl 500 MG tablet 500 mg PO BID 10 Days Qty: 20 0RF ondansetron 4 MG tablet,disintegrating 4 mg PO Q8HP PRN (Reason: Nausea) Qty: 20 0RF metronidazole 500 MG tablet 500 mg PO BID 10 Days Qty: 20 0RF ondansetron 4 MG tablet,disintegrating 4 mg PO Q8HP PRN (Reason: Nausea) Qty: 20 0RF azithromycin [Zithromax] 250 mg tablet 250 mg PO UD DOSE PK Qty: 6 0RF Rx Instructions: Take two (2) tablets today, then one (1) tablet days #2 thru #5 benzonatate [benzonatate] 100 mg capsule 100 mg PO TIDP PRN (Reason: Cough) Qty: 30 0RF ondansetron 4 mg Tablet,Disintegrating 4 mg PO Q8H PRN (Reason: Nausea) Qty: 12 0RF Referrals Follow up/Referrals: Juan Diego Matias MD [Primary Care Provider] - See instructions Clinical Impressions Clinical Impression: Abdominal pain Instructions Patient Instructions: DI for Acute Abdominal Pain Discharge ED Provider: Juanpablo Aragon Abdominal Pain HPI General Chief Complaint: Abdominal Pain Stated Complaint: abdominal pain, nausea Time Seen by Provider: 11/12/22 00:03 Mode of Arrival: Family Vehicle Source of Information: Patient, Spouse and Medical Record Limitations: No Limitations Description of Symptoms (Recalled from ER Triage Doc. by RN): Pt c/o epigastric radiating to LUQ ABD pain with nausea. States she had an episode of diarrhea 11/08 and nausea but no diarrhea since. She has been taking in fluids but very poor appetite last several days. Denies vomiting. Denies fever, cough, SOA, or congestion. She does report feeling bloated which is not usual for her. History of Present Illness HPI narrative: upper abd pain with dec po intake -and feels distended complaint: abdominal pain Onset (ago): day(s) Consistency: intermittent Location: LUQ and epigastric Severity: moderate Associated symptoms: denies other symptoms Related Data Home Medications Medication Instructions Recorded Confirmed omeprazole 20 mg capsule,delayed 20 mg PO DAILY acid reflux 05/26/20 02/05/22 release escitalopram oxalate 20 mg tablet 20 mg PO DAILY Depression 02/05/22 famotidine 20 mg tablet 40 mg PO DAILY GERD 02/05/22 fluticasone propionate 50 1 spr NS DAILY allergies 02/05/22 mcg/actuation nasal spray,suspension hydrochlorothiazide 12.5 mg tablet 12.5 mg PO DAILY High blood 02/05/22 pressure levothyroxine 50 mcg tablet 50 mcg PO DAILY Supplement 02/05/22 Previous Rx's Medication Instructions Recorded azithromycin 250
[2022-11-12 00:08] LABS: Erythrocyte Sedimentation Rate 16 mm/hr (0-20)
[2022-11-12 00:09] LABS: Thyroid Stimulating Hormone 1.76 uIU/mL (0.465-4.68)
[2022-11-12 01:09] VITALS: BP 132/76; PULSE 68; RESP 18; TEMP 36.6; O2SAT 99
== END 2022-11-12 01:26 | disposition home or self-care (01) ==
PROVIDERS: Emergency Provider Emergency Medicine; PCP Family Medicine
DX: R10.32 Left lower quadrant pain (principal); R10.13 Epigastric pain; R11.0 Nausea; R05.9 Cough, unspecified; R09.81 Nasal congestion; I10 Essential (primary) hypertension; K21.9 Gastro-esophageal reflux disease without esophagitis; K76.9 Liver disease, unspecified; G43.909 Migraine, unspecified, not intractable, without status migrainosus; F32.A Depression, unspecified; Z79.899 Other long term (current) drug therapy; Z88.0 Allergy status to penicillin; Z88.3 Allergy status to other anti-infective agents; Z88.8 Allergy status to other drugs, medicaments and biological substances
CPT/HCPCS: 71250; 74177; 80053; 81001; 82150; 83605; 83690; 84145; 84436; 84443; 85025; 85651; 86140; 96361; 96374; 96375; 99285; J2405; Q9967

== ENCOUNTER 2022-11-28 09:15 | Day surgery (SDC) | payer OTHER, SELFPAY ==
[2022-11-26 10:44] VITALS: BMI 34.9
[2022-11-28 09:25] VITALS: BP 135/73; PULSE 73; RESP 18; TEMP -12.4; TEMP 9.7; O2SAT 100
--- NOTE | 2022-11-28 10:04 | P.PN_ITS ---
[facility] Disclaimer: The information contained in this section may have been updated after the patient was seen, as this information can be updated by other users. Medical History Depression History of gastroesophageal reflux (GERD) Migraine Thyroid disease Surgical History History of section History of cholecystectomy History of hysterectomy History of tonsillectomy Family History Other No significant family history Social History Smoking Status: Never smoker second hand exposure: No alcohol intake: never substance use type: denies use current occupational status: employed and other Travel in the last 8 weeks: None household members: spouse and children housing: house number of children: 3 current occupation: [employer] caffeine: Yes [employer] Anesthesia Checklist Patient Identification Patient Identification: Arm Band and Verbal (Name & ) Structural Data Planned Operative Procedure/s: EGD Consent for Planned Operative Procedure(s) Verified: Yes Additional verifications Anesthesia Reactions: Yes (shivering) Hx Blood Transfusions: No Blood Transfusion Reaction: No Airway Assessment C-Spine Mobility Assessed: Yes TMJ Mobility Assessed: Yes Dentition: Good Dentition Anesthesia Plan Anesthesia Risk discussed: Yes Anesthesia Plan: Verified ASA Class: III Anesthesia Type: MAC
[2022-11-28 10:21] VITALS: O2SAT 97
[2022-11-28 10:35] VITALS: BP 86/57; PULSE 87; RESP 16; TEMP 36.3; O2SAT 90
--- NOTE | 2022-11-28 10:36 | HMH.SCOPE ---
Procedure: Date: 11/28/22 Patient Date of :: 1975 Procedure Performed:: Esophagogastroduodenoscopy with biopsies Indications:: Patient is a pleasant 47-year-old female. She has had previous cholecystectomy. I had seen her about a year ago in the office. She did have a colonoscopy performed by Dr. Tavera in October 2020 and he recommended repeat colonoscopy in [address] Tavera had plan for an EGD in 2020 but this had been canceled. I saw the patient about a year ago and planned an EGD in December 2021 however patient had to cancel. She describes symptoms of bloating, belching. She has some dysphagia. Interestingly this seems to be worse with rice. She often has to regurgitate. She actually been seen in the emergency department for symptoms on 11/11/2022. There was possibly a tiny hiatal hernia. Performing Provider:: Sawyer Munguia MD Referring Provider:: Dr. Matias Sedation:: MAC sedation Procedure:: Patient was taken to endoscopy procedure room. She was positioned in lateral decubitus position. Adequate intravenous sedation was achieved with anesthesia titration of propofol. Olympus endoscope was inserted via the oropharynx. There are findings of possible mild cricopharyngeal spasm. There was some tortuosity of the esophagus consistent with potential esophageal dysmotility. Gastroesophageal junction was encountered at 38 cm. Stomach was cannulated and insufflated. There was some bilious liquid within the stomach possibly consistent with bile reflux gastritis versus gastroparesis. There was minor nonerosive diffuse gastropathy. Retroflexion revealed extremely minuscule hiatal hernia. Gastric antral biopsy was obtained for CLOtest for H. pylori. Pylorus was traversed. Duodenum appeared normal. Biopsies was obtained. Gastric biopsy was obtained for histopathologic analysis. Couple biopsies were obtained at the gastroesophageal junction and distal esophagus. Stomach was desufflated. Findings:: Findings of potential esophageal dysmotility Extremely tiny hiatal hernia Gastroesophageal junction at 38 cm Diffuse gastropathy Possible bile reflux gastropathy, possible gastroparesis Recommendations:: I will plan to follow-up on the results of all of her biopsies. If her symptoms persist she could require upper GI and possible gastric emptying scan. This appears to be potentially functional and may need gastroenterology evaluation. Complications:: None immediately apparent Estimated blood obtained (mL): 1
[2022-11-28 10:45] VITALS: BP 86/60; PULSE 81; RESP 15; O2SAT 94
[2022-11-28 10:55] VITALS: BP 113/73; PULSE 69; RESP 17; O2SAT 97
[2022-11-28 11:05] VITALS: BP 116/70; PULSE 74; RESP 18; O2SAT 98
== END 2022-11-28 11:30 | disposition home or self-care (01) ==
PROVIDERS: PCP Family Medicine; Visit Provider Surgery
PROC: 0DJ08ZZ Inspection of Upper Intestinal Tract, Via Natural or Artificial Opening Endoscopic (ICD-10-PCS; CPT 43235; principal; 2022-11-28 10:00)
DX: R13.10 Dysphagia, unspecified (principal); K31.9 Disease of stomach and duodenum, unspecified; K44.9 Diaphragmatic hernia without obstruction or gangrene
CPT/HCPCS: 43239; 87339

== ENCOUNTER → 2022-12-03 15:22 | Outpatient (CLI) | payer OTHER, SELFPAY ==
--- NOTE | 2022-12-03 15:28 | US_ITS ---
FINAL REPORT TECHNIQUE: Sonographic images of the thyroid gland were obtained in the longitudinal and transverse planes. CLINICAL HISTORY: hx nodules COMPARISON: 10/19/2020 FINDINGS: The right lobe measures 1.9 x 4.6 x 1.3 cm. There is a hypoechoic nodule measuring 1.1 cm which is wider than tall without calcification. There is no significant change since prior. Several tiny colloid cysts are identified. The left lobe measures 1.6 x 4.5 x 1.4 cm. There is a hypoechoic nodule measuring 1.3 cm, unchanged from prior. There are several colloid cysts. A 6 mm hypoechoic nodule in the lower pole may be new. This appears partially cystic and partially solid. The isthmus measures 3 mm. This is normal. IMPRESSION: New, TI-RADS 3 left thyroid lobe nodule which is too small. No follow-up is recommended based on size criteria. Other nodules are stable. Reviewed, Interpreted and Dictated by Makeda Crowell MD Transcribed by Shanta Jimenez Authenticated and [facility]
== END ==
PROVIDERS: PCP Family Medicine; Visit Provider Student in an Organized Health Care Education/Training Program
DX: E04.1 Nontoxic single thyroid nodule (principal)
CPT/HCPCS: 76536

== ENCOUNTER → 2022-12-24 07:54 | Outpatient (CLI) | payer OTHER, SELFPAY ==
--- NOTE | 2022-12-24 07:54 | FL_ITS ---
FINAL REPORT CLINICAL HISTORY: 1.54 fluoro time Nausea, vomiting, Acid Reflux FINDINGS: UPPER GI WITH SBFT UPPER GI EXAM HISTORY: Abdominal pain, nausea. PROCEDURE: The patient ingested barium. Effervescent crystals were also administered. Spot and overhead films were obtained. FINDINGS: The esophagus is normal. There is a small sliding type hiatal hernia with a Schatzki's ring. There is mild to moderategastroesophageal reflux. Peristalsis is normal. The rugal fold pattern of the stomach is normal. The duodenal bulb is normal. FLUOROSCOPY TIME: 1.54 minutes IMPRESSION: . Small sliding type hiatal hernia with Schatzki's ring. Mild to moderate gastroesophageal reflux. SBFT: The raker buffing wheel film demonstrates a moderate amount of stool throughout the colonl. There is no evidence of obstruction. The mucosal fold pattern is normal. The terminal ilium is normal. IMPRESSION: Normal SBFT. Films reviewed , interpreted and dictated by Dr. Garcia. Transcribed by Armando Menon PA-C. Reviewed, Interpreted and Dictated by Ross Garcia MD Transcribed by CHIDI Dominguez Authenticated and [facility]
== END ==
PROVIDERS: PCP Family Medicine; Visit Provider Surgery
DX: R11.2 Nausea with vomiting, unspecified (principal)
CPT/HCPCS: 74246; 74248

== ENCOUNTER 2023-06-08 14:44 | Emergency (ER) | payer OTHER, SELFPAY ==
--- NOTE | 2023-06-08 14:49 | EXP.UTC ---
Discharge Plan Disposition Patient Disposition: Home, Self-Care Condition: Good Prescriptions Prescriptions: New methylprednisolone 4 mg Tablets,Dose Pack 4 mg PO DIRECTED Qty: 21 0RF No Action atomoxetine [Strattera] 40 mg capsule 40 mg PO DAILY Qty: 30 1RF famotidine 20 MG tablet 40 mg PO DAILY levothyroxine 50 MCG tablet 50 mcg PO DAILY escitalopram oxalate 20 MG tablet 20 mg PO DAILY omeprazole 20 MG capsule,delayed release(DR/EC) 20 mg PO DAILY Referrals Follow up/Referrals: Provider,Referral, MD [Primary Care Provider] - See instructions Activity Restrictions/Add. Instructions Additional Instructions/Restrictions: Rest the extremity, Elevate the extremity as tolerated while you are resting. Follow up with podiatry as discussed. Follow up with your regular doctor. GO TO THE ER FOR ANY WORSENING SYMPTOMS Clinical Impressions Clinical Impression: Ankle pain, right Instructions Patient Instructions: DI for Tendinitis Discharge ED Provider: Juan Bridges [facility] General Stated complaint: [id number] right ankle pain Time Seen by Provider: 06/08/23 14:49 History of Present Illness Provider Complaint: She states that she has had right ankle pain for the past several days. She denies any known injury. She has had pain in this ankle on and off for the recent past. She has saw podiatry for this before. Related Data Home Medications Medication Instructions Recorded Confirmed omeprazole 20 mg capsule,delayed 20 mg PO DAILY acid reflux 05/26/20 04/22/23 release escitalopram oxalate 20 mg tablet 20 mg PO DAILY Depression 02/05/22 04/22/23 famotidine 20 mg tablet 40 mg PO DAILY GERD 02/05/22 04/22/23 levothyroxine 50 mcg tablet 50 mcg PO DAILY Supplement 02/05/22 04/22/23 Previous Rx's Medication Instructions Recorded atomoxetine 40 mg capsule 40 mg PO DAILY #30 caps 03/31/23 (Strattera) methylprednisolone 4 mg tablets in 4 mg PO DIRECTED #21 tabs 06/08/23 a dose pack Allergies Allergy/AdvReac Type Severity Reaction Status Date / Time cefaclor [From Ceclor] Allergy Unknown Verified 04/22/23 08:31 allergy reaction morphine Allergy Chest Pain Verified 04/22/23 08:31 Penicillins Allergy Unknown Verified 04/22/23 08:31 allergy reaction [facility] Disclaimer: The information contained in this section may have been updated after the patient was seen, as this information can be updated by other users. Medical History Attention deficit disorder (ADD) in adult Depression Generalized anxiety disorder History of gastroesophageal reflux (GERD) Hoarseness or changing voice Migraine Multiple thyroid nodules Thyroid disease Surgical History History of section History of cholecystectomy History of esophagogastroduodenoscopy History of hysterectomy History of tonsillectomy Family History Other Thyroid disorder Social History Smoking Status: Never smoker second hand exposure: No alcohol intake: never substance use type: denies use current occupational status: employed and other Travel in the last 8 weeks: None household members: spouse and children housing: house number of children: 3 current occupation: [employer] caffeine: Yes ROS Obtained: Yes All systems reviewed & no additional complaints except as documented Constitutional Constitutional: Denies chills and Denies fever(s) Eyes Eyes: Denies eye discharge ENT Ears, Nose, Mouth, and Throat: Denies dizziness, Denies otalgia and Denies sore throat Cardiovascular Cardiovascular: Denies chest pain Respiratory Respiratory: Denies shortness of breath, Denies chest congestion, Denies cough, Denies stridor and Denies wheezing
[2023-06-08 14:56] VITALS: BP 138/85; PULSE 81; RESP 16; TEMP 36.7; O2SAT 98; BMI 33.0
--- NOTE | 2023-06-08 14:57 | XR_ITS ---
FINAL REPORT CLINICAL HISTORY: pain FINDINGS: Right ankle Three views were obtained. There is no acute fracture or dislocation. The joint spaces appear normal. No soft tissue abnormality is identified. Note is made of calcaneal spurs. IMPRESSION: No acute process. Reviewed, Interpreted and Dictated by Lianet Amaya MD Transcribed by Shanta Jimenez Authenticated and [facility]
[2023-06-08 15:39] VITALS: BP 138/85; PULSE 81; RESP 16; TEMP 36.7; O2SAT 98
== END 2023-06-08 15:41 | disposition home or self-care (01) ==
PROVIDERS: Emergency Provider Nurse Practitioner Family
DX: M25.561 Pain in right knee (principal); E03.9 Hypothyroidism, unspecified; K21.9 Gastro-esophageal reflux disease without esophagitis; F90.9 Attention-deficit hyperactivity disorder, unspecified type; F41.1 Generalized anxiety disorder; F32.A Depression, unspecified
CPT/HCPCS: 73610; 99212; 99214; G0463

== ENCOUNTER → 2023-09-02 13:53 | Outpatient (CLI) | payer OTHER, SELFPAY ==
--- NOTE | 2023-09-02 14:05 | MR_ITS ---
FINAL REPORT CLINICAL HISTORY: right foot pain WITH SWELLING. NO INJURY COMPARISON: None FINDINGS: Multiplanar MR imaging of the right foot was performed without contrast. The bony structures are intact without evidence of fracture, bone bruise or marrow edema. There is a partial longitudinal tear of the posterior tibial tendon inferior to the medial malleolus. There is tenosynovitis of the posterior tibial, and peroneal longus and brevis tendons. No ligamentous injury is identified. The musculature is intact. The plantar aponeurosis is intact. Circumferential subcutaneous edema is present. IMPRESSION: Partial longitudinal tear of the posterior tibial tendon inferior to the medial malleolus. Tenosynovitis of the posterior tibial and peroneus longus and brevis tendons. Reviewed, Interpreted and Dictated by Sawyer Meyer III, MD Transcribed by Christie Arreguni Authenticated and [facility]
== END ==
PROVIDERS: PCP Nurse Practitioner Family; Visit Provider Nurse Practitioner Family
DX: M25.471 Effusion, right ankle (principal); M76.821 Posterior tibial tendinitis, right leg; M79.671 Pain in right foot
CPT/HCPCS: 73718

== ENCOUNTER 2023-10-25 08:34 | Emergency (ER) | payer OTHER, SELFPAY ==
[2023-10-25 08:45] VITALS: BP 162/104; PULSE 107; RESP 19; TEMP 38.2; O2SAT 95; BMI 34.2
--- NOTE | 2023-10-25 08:57 | EXP.UTC ---
Discharge Plan Disposition Patient Disposition: Home, Self-Care Condition: Good Prescriptions Prescriptions: New methylprednisolone [Medrol (Elton)] 4 mg tablets,dose pack See Rx Instructions .Route .COMPLEX 6 Days Qty: 21 0RF Rx Instructions: taper pack; guaifenesin [Mucinex] 600 mg tablet extended release 12hr 1,200 mg PO BID PRN (Reason: cough) Qty: 20 0RF azithromycin [Zithromax Z-Elton] 250 mg tablet See Rx Instructions .ROUTE .COMPLEX 5 Days Qty: 6 0RF Rx Instructions: For 250 mg dose pack: take 500 mg today (day 1), then 250 mg for 4 days (days 2-5) No Action escitalopram oxalate [Lexapro] 10 mg tablet 10 mg PO DAILY Qty: 90 1RF atomoxetine [Strattera] 100 mg capsule 100 mg PO DAILY Qty: 30 2RF levothyroxine 50 mcg tablet See Rx Instructions .ROUTE .COMPLEX Qty: 30 10RF Dose Instruction: TAKE ONE TABLET BY MOUTH EVERY DAY FOR THYROID Rx Instructions: TAKE ONE TABLET BY MOUTH EVERY DAY FOR THYROID omeprazole magnesium [Prilosec OTC] 20 mg Tablet,Delayed Release (Dr/Ec) 20 mg PO DAILY Referrals Follow up/Referrals: Mariel Herron APRN [Primary Care Provider] - See instructions Activity Restrictions/Add. Instructions Additional Instructions/Restrictions: *Monitor Temp, Over the counter Motrin or Tylenol as directed/as needed Tylenol every 4 hours and Motrin every 6 hours (as long as your family doctor has told you that you can take it) for fever or pain. and straight to ER if unable to lower temp less than 101.0 after medication given *Warm salt water gargles may help to soothe the throat *Throat Lozenges? *Warm fluids like tea with honey may help to soothe the throat? *Sleep elevated *Humidifier/Vaporizer *Your throat swab was sent for culture. Those results are typically sent to your primary care. Be sure to follow up in 2-3 days with your family doctor/primary care physician if no improvement so they can review those result and treat if necessary. If you don?t have a primary care doctor, I recommend you get one but in the mean time, you will have to return to a walk in clinic Follow up IMMEDIATELY for new or worsening symptoms or no Noticeable improvement over the next 48-72 hours. 911 for difficulty breathing or swallowing Clinical Impressions Clinical Impression: Pharyngitis Qualifiers: Pharyngitis/tonsillitis etiology: unspecified etiology Qualified Code(s): J02.9 - Acute pharyngitis, unspecified Instructions Patient Instructions: Sore Throat, DI for Nasal Congestion Discharge ED Provider: Sosa Mcnulty [facility] [place] [facility] [place] General Stated complaint: fever,sore throat,body aches Mode of Arrival: Ambulatory Source of Information: Patient Limitations: No Limitations Time Seen by Provider: 10/25/23 08:57 Description of Symptoms (Recalled from Triage Doc. by RN): PATIENT C/O SORE THROAT, BODY ACHES, EAR PAIN, AND CONGESTION. SHE STATES SHE TESTED POSITIVE FOR COVID AT HOME ON THURSDAY AND STATES HER SYMPTOMS ARE GETTING WORSE HEENT Symptoms (Recalled from RN notes): Yes Resp Symptoms (Recalled from RN notes): No Skin Symptoms (Recalled from RN notes): No MS Symptoms (Recalled from RN notes): No Functional Status (Recalled from RN notes): WNL History of Present Illness Provider Complaint: Patient states that she took a home test for COVID on and it was positive States that since then her symptoms have got worse and was exposed to flu also States that she has been having body aches, chills, head congestion, sore throat and ear pain States that today she was feeling worse and feels like she may have strep throat so she came in to get checked Related Data Home Medications Medication Instructions Recorded Confirmed omeprazole magnesium 20 mg 20 mg PO DAILY 10/25/23 10/25/23 tablet,delayed release (Prilosec OTC) Previous Rx's Medication Instructions Recorded escitalopram oxalate 10 mg tab
[2023-10-25 09:06] LABS: UTC Influenza A Antigen Negative (Negative); UTC Influenza B Antigen Negative (Negative)
[2023-10-25 09:06] LABS: UTC Strep Screen (Rapid) Negative (Negative)
[2023-10-25 09:17] VITALS: BP 162/104; PULSE 107; RESP 19; TEMP 38.2; O2SAT 95
== END 2023-10-25 09:18 | disposition home or self-care (01) ==
PROVIDERS: Emergency Provider Nurse Practitioner; PCP Nurse Practitioner Family
DX: U07.1 COVID-19 (principal); R51.9 Headache, unspecified; J02.9 Acute pharyngitis, unspecified; R50.9 Fever, unspecified; H92.03 Otalgia, bilateral; R09.81 Nasal congestion; M79.18 Myalgia, other site; E03.9 Hypothyroidism, unspecified; K21.9 Gastro-esophageal reflux disease without esophagitis; F41.1 Generalized anxiety disorder; F90.8 Attention-deficit hyperactivity disorder, other type
CPT/HCPCS: 87804; 87880; 99212; 99214; G0463

== ENCOUNTER → 2023-11-02 08:59 | Outpatient (CLI) | payer OTHER, SELFPAY ==
[2023-11-02 09:06] LABS: Microscopic, Urine URINE MICROSCOPIC (MICROSCOPIC)
[2023-11-02 10:01] LABS: Basophils % 0.4 % (0.1-2.0); Eosinophils # 0.2 K/mm3 (0.0-0.4); Eosinophils % 2.5 % (0.1-12.0); Hematocrit 43.4 % (37.0-47.0); Hemoglobin 14.5 g/dL (12.2-16.2); Lymphocytes % 38.5 % (10-50); Mean Corpuscular HGB Conc 33.4 g/dL (31.8-35.4); Mean Corpuscular Hemoglobin 30.1 pg (27.0-31.2); Mean Corpuscular Volume 89.9 fl (81-99); Mean Platelet Volume 7.5 fl (7.4-10.4); Monocytes # 0.4 K/mm3 (0.1-1.0); Monocytes % 5.6 % (1.7-9.3); Neutrophils # 4.2 K/mm3 (1.8-7.8); Neutrophils % 52.9 % (37.0-80.0); Platelet Count 287 K/mm3 (142-424); Red Blood Count 4.83 M/mm3 (4.20-5.40); Red Cell Distribution Width 12.8 % (11.5-17.5); White Blood Count 7.9 K/mm3 (4.8-10.8)
[2023-11-02 10:13] LABS: Appearance,Urine CLEAR (Clear); Blood, Urine Negative (Negative); Color,Urine YELLOW (Yellow); Glucose,Urine (UA) Negative (Negative); Ketones,Urine Negative (Negative); Leukocyte Esterase,Urine Negative (Negative); Nitrate,Urine Negative (Negative); Protein,Urine Negative (Negative); Specific Gravity, Urine 1.025 (1.005-1.030); Urobilinogen,Urine 0.2 EU/dl (0.2)
[2023-11-02 10:19] LABS: Bilirubin,Urine 1+ (Negative)
[2023-11-02 10:38] LABS: Hemoglobin A1C 5.8 % (4.0-6.0)
[2023-11-02 10:41] LABS: Bacteria,Urine Trace /lpf; Squamous Epithelial Cell,Urine Occasional #/hpf (0-5)
[2023-11-02 10:50] LABS: Chloride 102 mmol/L (98-107)
[2023-11-02 10:51] LABS: Potassium 4.5 mmoL/L (3.5-5.1); Sodium 137 mmol/L (136-145)
[2023-11-02 10:53] LABS: Alanine Aminotransferase 28 U/L (12-78); Alkaline Phosphatase 91 U/L (38-126); Aspartate Amino Transferase 30 U/L (14-36); Bilirubin,Total 0.4 mg/dl (0.2-1.3); Blood Urea Nitrogen 15 mg/dl (7-17); Estimated Glomerular Filt Rate 89 ml/min (>60); GFR (African American) 108 ML/MIN (>60)
[2023-11-02 10:54] LABS: Albumin Level 4.1 g/dl (3.5-5.0); Albumin/Globulin Ratio 1.5 (1.1-1.8); Anion Gap 10.5 mEq/L (5-15); Calcium 8.9 mg/dl (8.4-10.2); Carbon Dioxide 29 mmol/L (22.0-30.0); Chol/HDL Ratio 5.5 (1-3.5); Cholesterol 205 mg/dl (140-200); Globulin 2.7 g/dL (1.3-3.2); Glucose 96 mg/dl (74-100); HDL Cholesterol 37 mg/dl (40-60); Total Protein,Serum 6.8 g/dl (6.3-8.2); Triglycerides 151 mg/dl (30-150); VLDL Cholesterol 30 mg/dL (0-40)
[2023-11-02 11:05] LABS: Direct LDL Cholesterol 130.17 mg/dL (100-129)
[2023-11-02 11:11] LABS: Free Thyroxine Index 2.4 ug/dL (5.93-13.13); T4 (Thyroxine) 7.3 ug/dl (5.53-11.0); Triiodothryronine (T3) Uptake 33 % (23.5-40.5)
[2023-11-02 11:14] LABS: 25-OH Vitamin D, Total 32.3 ng/mL (30-100)
[2023-11-02 11:24] LABS: Thyroid Stimulating Hormone 1.69 uIU/mL (0.465-4.68)
[2023-11-02 12:07] LABS: Vitamin B12 392 pg/mL (239-931)
[2023-11-03 09:05] LABS: LH 6.1 mIU/mL (.); Progesterone 5.7 ng/mL (.); Testosterone,Total 24 ng/dL (4-50)
[2023-11-03 11:23] LABS: Insulin Level Total 12.6 uIU/mL (2.6-24.9)
[2023-11-06 15:17] LABS: Estrogen 538 pg/mL (.)
[2023-11-10 09:15] LABS: Anti Mullerian Hormone (AMH) 0.082
== END ==
PROVIDERS: PCP Nurse Practitioner Family; Visit Provider Nurse Practitioner Family
DX: E03.9 Hypothyroidism, unspecified (principal); N95.1 Menopausal and female climacteric states; Z13.1 Encounter for screening for diabetes mellitus; R53.83 Other fatigue; E66.9 Obesity, unspecified; Z68.34 Body mass index [BMI] 34.0-34.9, adult; F32.A Depression, unspecified; Z13.220 Encounter for screening for lipoid disorders
CPT/HCPCS: 36415; 80053; 80061; 81001; 82306; 82397; 82607; 82670; 82672; 83001; 83002; 83036; 83525; 84144; 84403; 84436; 84443; 84479; 85025; 87086

== ENCOUNTER → 2023-11-02 12:50 | Outpatient (CLI) | payer OTHER, SELFPAY ==
--- NOTE | 2023-11-02 12:51 | US_ITS ---
FINAL REPORT CLINICAL HISTORY: thyroid nodules COMPARISON: 12/03/2022 FINDINGS: THYROID ULTRASOUND: The right lobe of the thyroid measures 4.4 x 1.3 x 1.6 cm in size. The left lobe measures 3.8 x 1.4 x 1.5 cm in size. The isthmus of the thyroid measures 3.4 mm in thickness. There are multiple nodules present bilaterally. The largest on the right measures 1.2 cm in diameter, and is a TI-RADS category 4 nodule. On the left, the largest nodule measures 1.5 cm in the mid portion of the thyroid gland, also a TI-RADS category 4 nodule. Multiple other subcentimeter nodules are present. IMPRESSION: Left mid thyroid 1.5 cm nodule, TI-RADS category 4, recommend tissue sampling. Right thyroid 1.2 cm nodule, TI-RADS category 4, recommend 6 to 12-month follow-up. Reviewed, Interpreted and Dictated by Ross Garcia MD Transcribed by Christie Arreguin Authenticated and [facility]
== END ==
PROVIDERS: PCP Nurse Practitioner Family; Visit Provider Student in an Organized Health Care Education/Training Program
DX: E04.2 Nontoxic multinodular goiter (principal)
CPT/HCPCS: 76536

== ENCOUNTER → 2023-11-13 07:58 | Outpatient (CLI) | payer OTHER, SELFPAY ==
--- NOTE | 2023-11-13 | US_ITS ---
FINAL REPORT CLINICAL HISTORY: right thyroid fna -- Louie MURILLO FINDINGS: Ultrasound guided thyroid biopsy. HISTORY: Right thyroid nodule. Attending radiologist: Dr. Garcia Physician Management Planner: CHIDI Leon PROCEDURE: After informed consent was obtained and a time-out was performed, the patient was prepped and draped in usual sterile fashion over the right neck. Utilizing local anesthesia and sterile technique with a 25-gauge needle, access to lesion was obtained. Three passes were made under direct ultrasound guidance. The patient received no conscious sedation. The patient tolerated procedure well and left the department in good condition. IMPRESSION: Status post ultrasound guided biopsy of right lobe of the thyroid without immediate complication. Films reviewed , interpreted and dictated by Dr. Garcia. Transcribed by Louie Allison PA-C. Reviewed, Interpreted and Dictated by Ross Garcia MD Transcribed by CHIDI Leon Authenticated and . [facility]
--- NOTE | 2023-11-13 07:58 | US_ITS ---
FINAL REPORT CLINICAL HISTORY: .left thyroid fna -- Louie MURILLO FINDINGS: Ultrasound guided thyroid biopsy. HISTORY: Left thyroid nodule. Attending radiologist: Dr. Garcia Physician Coding File Clerk: CHIDI Leon PROCEDURE: After informed consent was obtained and a time-out was performed, the patient was prepped and draped in usual sterile fashion over the left neck. Utilizing local anesthesia and sterile technique with a 25-gauge needle, access to lesion was obtained. Three passes were made under direct ultrasound guidance. The patient received no conscious sedation. The patient tolerated procedure well and left the department in good condition. IMPRESSION: Status post ultrasound guided biopsy of left lobe of the thyroid without immediate complication. Films reviewed , interpreted and dictated by Dr. Garcia. Transcribed by Louie Allison PA-C. Reviewed, Interpreted and Dictated by Ross Garcia MD Transcribed by CHIDI Leon Authenticated and [facility]
== END ==
LOC: RAD 07:58
PROVIDERS: PCP Nurse Practitioner Family; Visit Provider Nurse Practitioner
DX: E04.2 Nontoxic multinodular goiter (principal)
CPT/HCPCS: 10005; 76536

== ENCOUNTER 2024-03-10 17:16 | Outpatient (RCR) | payer OTHER, SELFPAY | END 2024-03-10 18:00 | disposition home or self-care (01) | LOC: PT 17:16 | PROVIDERS: Visit Provider Podiatrist Foot & Ankle Surgery | DX: M25.571 Pain in right ankle and joints of right foot (principal); S96.911A Strain of unspecified muscle and tendon at ankle and foot level, right foot, initial encounter ==

== ENCOUNTER 2024-03-20 10:27 | Emergency (ER) | payer OTHER, SELFPAY ==
[2024-03-20 10:45] VITALS: BP 128/85; PULSE 66; RESP 18; TEMP 36.6; O2SAT 99; BMI 31.4
[2024-03-20 10:50] LABS: Apearance,Urine Clear (Clear); Color,Urine Dark Yellow (Yellow); PH,Urine 5.5 (5.0-8.5); Specific Gravity, Urine 1.025 (1.005-1.030)
[2024-03-20 10:51] LABS: Bilirubin,Urine Negative (Negative); Blood, Urine 1+ (Negative); Glucose,Urine (UA) Negative (Negative); Ketones,Urine Negative (Negative); Protein,Urine Negative (Negative); UTC Leukocyte Esterase,Urine Negative (Negative); UTC Nitrate,Urine Positive (Negative); Urobilinogen,Urine 0.2 EU/dl (0.2)
--- NOTE | 2024-03-20 11:02 | ED_ITS ---
Discharge Plan Disposition Patient Disposition: Home, Self-Care Condition: Good Prescriptions Prescriptions: New levofloxacin 500 mg tablet 500 mg PO DAILY 5 Days Qty: 5 0RF No Action escitalopram oxalate [Lexapro] 10 mg tablet 10 mg PO DAILY Qty: 90 1RF atomoxetine [Strattera] 100 mg capsule 100 mg PO DAILY Qty: 90 1RF levothyroxine 50 mcg tablet See Rx Instructions .ROUTE .COMPLEX Qty: 30 10RF Dose Instruction: TAKE ONE TABLET BY MOUTH EVERY DAY FOR THYROID Rx Instructions: TAKE ONE TABLET BY MOUTH EVERY DAY FOR THYROID omeprazole magnesium [Prilosec OTC] 20 mg Tablet,Delayed Release (Dr/Ec) 20 mg PO DAILY Referrals Follow up/Referrals: Mariel Herron APRN [Primary Care Provider] - See instructions Activity Restrictions/Add. Instructions Additional Instructions/Restrictions: Increase fluids, water and not soda or tea. Can drink cranberry juice or cranberry extract. Wipe front to back Wear cotton underwear Empty bladder after intercourse Start antibiotics immediately and make sure you take the full course although you may start to see improvement over the next 48 hours. You can eat yogurt or take probiotics to decrease diarrhea or yeast infection caused by the antibiotic Be sure to follow-up anytime for new or worsening symptoms in 48 hours for wound urine culture results be sure to let you PCP no recent urine for culture so they can request records and ensure that you have appropriate antibiotic if you are not getting better or getting worse. If symptoms worsen or do not improve return or be seen in the ER. Follow-up with primary care this week. Clinical Impressions Clinical Impression: UTI (urinary tract infection) Instructions Patient Instructions: DI for Urinary Tract Infection (UTI) Discharge ED Provider: Alexandro ([facility])Sukhi [facility] – [place] HPI General Stated complaint: back pain nausea burning urination Mode of Arrival: Ambulatory Source of Information: Patient Limitations: No Limitations Time Seen by Provider: 03/20/24 11:03 Description of Symptoms (Recalled from Triage Doc. by RN): Pt's symptoms are nausea, right sided flank pain, urinary pressure, and burning with urination. HEENT Symptoms (Recalled from RN notes): No Resp Symptoms (Recalled from RN notes): No Skin Symptoms (Recalled from RN notes): No MS Symptoms (Recalled from RN notes): No Functional Status (Recalled from RN notes): n/a History of Present Illness Provider Complaint: 48 yr old female presents for c/o nausea, right sided flank pain, urinary pressure, and burning with urination that started last pm. Related Data Home Medications Medication Instructions Recorded Confirmed omeprazole magnesium 20 mg 20 mg PO DAILY 10/25/23 03/20/24 tablet,delayed release (Prilosec OTC) Previous Rx's Medication Instructions Recorded levothyroxine 50 mcg tablet See Rx Instructions .Route 07/21/23 .COMPLEX #30 tabs atomoxetine 100 mg capsule 100 mg PO DAILY #90 caps 03/03/24 (Strattera) escitalopram oxalate 10 mg tablet 10 mg PO DAILY #90 tabs 03/03/24 (Lexapro) levofloxacin 500 mg tablet 500 mg PO DAILY 5 days #5 tabs 03/20/24 Allergies Allergy/AdvReac Type Severity Reaction Status Date / Time cefaclor [From Ceclor] Allergy Unknown Verified 03/20/24 10:59 allergy reaction morphine Allergy Chest Pain Verified 03/20/24 10:59 Penicillins Allergy Unknown Verified 03/20/24 10:59 allergy reaction Worker's Comp Is this a Worker's Comp case?: No [facility] Disclaimer: The information contained in this section may have been updated after the patient was seen, as this information can be updated by other users. Medical History (Reviewed 03/20/24 @ 11:08 by Sukhi Mc ([facility]), [employer]) Pharyngitis Rash Ankle pain, right Right foot pain Attention deficit disorder (ADD) in adult Generalized anxiety disorder Hoarseness or changing voice Multiple thyroid nodules Abdominal pain Strep throat Depression Thyroid disease History of gastroesophageal reflux (GERD) Migraine Diverticulitis Viral syndrome Acute bronchitis Epigastric abdominal pain Serous otitis media Elevated blood pressure reading Uterine hypertrophy Pelvic pain Right sided abdominal pain Left ovarian cyst Sigmoid diverticulitis Sinusitis Nausea and vomiting UTI (urinary tract infection) URI (upper respiratory infection) Bronchitis Surgical History (Reviewed 03/20/24 @ 11:08 by Sukhi Mc ([facility]), [employer]) History of esophagogastroduodenoscopy History of tonsillectomy History of hysterectomy History of section History of cholecystectomy Family History (Reviewed 03/20/24 @ 11:08 by Sukhi Mc ([facility]), [employer]) Thyroid disorder Social History (Reviewed 03/20/24 @ 11:08 by Sukhi Mc ([facility]), [employer]) Smoking Status: Never smoker second hand exposure: No alcohol intake: never substance use type: denies use current occupational status: employed and other Travel in the last 8 weeks: None household members: spouse and children housing: house number of children: 3 current occupation: [employer] caffeine: Yes ROS Obtained: Yes All systems reviewed & no additional complaints except as documented Constitutional Constitutional: Reports system reviewed and no additional complaints, except as documented Eyes Eyes: Reports system reviewed and no additional complaints, except as documented ENT Ears, Nose, Mouth, and Throat: Reports system reviewed and no additional complaints, except as documented Cardiovascular Cardiovascular: Reports system reviewed and no additional complaints, except as documented Respiratory Respiratory: Reports system reviewed and no additional complaints, except as documented Genitourinary Female Genitourinary: Reports system reviewed and no additional complaints, except as documented, Reports as per HPI, Reports dysuria, Reports flank pain, Reports urinary frequency, Reports urinary hesitancy and Reports urinary urgency Musculoskeletal Musculoskeletal: Reports system reviewed and no additional complaints, except as documented Neurologic Neurologic: Reports system reviewed and no additional complaints, except as documented Endocrine Endocrine: Reports system reviewed and no additional complaints, except as documented Hematologic/Lymphatic Henatologic/Lymphatic: Reports system reviewed and no additional complaints, except as documented Allergic/Immunologic Allergic/Immunologic: Reports system reviewed and no additional complaints, except as documented Physical Exam General General appearance: alert and in no apparent distress Head Head exam: atraumatic Eye Eye exam: Present normal appearance and PERRL ENT ENT exam: Present normal exam, normal oropharynx, mucous membranes moist and TM's normal bilaterally Respiratory Respiratory exam: Present normal lung sounds bilaterally Cardiovascular Cardiovascular exam: Present regular rate and normal rhythm Abdominal Exam Abdominal exam: Present soft Neurological Exam Neurological exam: Present alert and oriented X3 Skin Skin exam: Present warm and intact Medical Decision Making Medical Records Medical records reviewed: Yes I reviewed the patient's medical records. Piotr Inquiry Pt receiving controlled substance: No Piotr was queried for this patient: No Vital Signs: 03/20/24 10:45 Temperature 97.9 F Temperature Source Oral Pulse Rate [Right Radial] 66 Respiratory Rate 18 Blood Pressure [Right Arm] 128/85 Blood Pressure Mean [Right Arm] 99 Blood Pressure Source [Right Arm] Automatic Cuff Blood Pressure Position [Right Arm] Sitting 02 Sat by Pulse Oximetry 99 Oxygen Delivery Method Room Air Lab Data Lab results reviewed: Yes I reviewed the patient's lab results. Lab Results 03/20/24 10:49: Urine Color Dark yellow, Urine Appearance Clear, Urine pH 5.5, Ur Specific [place] 1.025, Urine Protein Negative, Urine Glucose (UA) Negative, Urine Ketones Negative, Urine Blood 1+, Urine Nitrate Positive A, Urine Bilirubin Negative, Urine Urobilinogen 0.2, Ur Leukocyte Esterase Negative Orders (Tests/Meds): ORDERS Category Date Time Status Urine Culture Stat Micro 03/20/24 10:36 Received
[2024-03-20 11:17] VITALS: BP 128/85; PULSE 66; RESP 18; TEMP 36.6; O2SAT 99
== END 2024-03-20 11:16 | disposition home or self-care (01) ==
PROVIDERS: Emergency Provider Nurse Practitioner Family; PCP Nurse Practitioner Family
DX: N39.0 Urinary tract infection, site not specified (principal); R30.0 Dysuria; M54.59 Other low back pain; R11.0 Nausea
CPT/HCPCS: 81003; 87086; 99212; 99214; G0463

== ENCOUNTER 2024-03-24 17:00 | Outpatient (RCR) | payer OTHER, SELFPAY | END 2024-03-24 18:00 | disposition home or self-care (01) | LOC: PT 17:00 | PROVIDERS: Visit Provider Podiatrist Foot & Ankle Surgery | DX: M79.661 Pain in right lower leg (principal); S86.111D Strain of other muscle(s) and tendon(s) of posterior muscle group at lower leg level, right leg, subsequent encounter | CPT/HCPCS: 97010; 97014; 97016; 97110; 97112; 97163; 97164; 97530; 97760; G0283 ==

== ENCOUNTER 2024-04-05 13:22 | Outpatient (POV) | payer OTHER, SELFPAY | END 2024-04-05 23:59 | disposition home or self-care (01) | LOC: SC 13:23 | PROVIDERS: PCP Nurse Practitioner Family; Visit Provider Dermatology | DX: Z00.00 Encounter for general adult medical examination without abnormal findings (principal) ==

== ENCOUNTER 2024-10-20 16:08 | Outpatient (CLI) | payer OTHER, SELFPAY ==
[2024-10-20 08:53] LABS: Microscopic, Urine URINE MICROSCOPIC (MICROSCOPIC)
[2024-10-20 09:22] LABS: Basophils # 0.1 K/mm3 (0-0.2); Basophils % 1.3 % (0.1-2.0); Eosinophils # 0.1 K/mm3 (0.0-0.4); Eosinophils % 2.1 % (0.1-12.0); Hematocrit 41.9 % (37.0-47.0); Hemoglobin 14.4 g/dL (12.2-16.2); Lymphocytes # 2.3 K/mm3 (0.7-4.5); Lymphocytes % 41.8 % (10-50); Mean Corpuscular HGB Conc 34.3 g/dL (31.8-35.4); Mean Corpuscular Hemoglobin 30.4 pg (27.0-31.2); Mean Corpuscular Volume 88.8 fl (81-99); Mean Platelet Volume 8.9 fl (7.4-10.4); Monocytes # 0.3 K/mm3 (0.1-1.0); Monocytes % 6.1 % (1.7-9.3); Neutrophils # 2.7 K/mm3 (1.8-7.8); Neutrophils % 48.8 % (37.0-80.0); Platelet Count 246 K/mm3 (142-424); Red Blood Count 4.72 M/mm3 (4.20-5.40); Red Cell Distribution Width 13.3 % (11.5-17.5); White Blood Count 5.5 K/mm3 (4.8-10.8)
[2024-10-20 09:53] LABS: Alanine Aminotransferase 21 U/L (12-78); Albumin Level 3.9 g/dl (3.5-5.0); Albumin/Globulin Ratio 1.7 (1.1-1.8); Alkaline Phosphatase 73 U/L (38-126); Aspartate Amino Transferase 29 U/L (14-36); Bilirubin,Total 0.5 mg/dl (0.2-1.3); Blood Urea Nitrogen 13 mg/dl (7-17); Calcium 8.7 mg/dl (8.4-10.2); Carbon Dioxide 26 mmol/L (22.0-30.0); Chloride 105 mmol/L (98-107); Chol/HDL Ratio 4.9 (1-3.5); Cholesterol 183 mg/dl (140-200); Estimated Glomerular Filt Rate 106 ml/min (>60); GFR (African American) 129 ML/MIN (>60); Globulin 2.3 g/dL (1.3-3.2); Glucose 97 mg/dl (74-100); HDL Cholesterol 37 mg/dl (40-60); Magnesium 1.8 mg/dl (1.6-2.3); Sodium 137 mmol/L (136-145); Total Protein,Serum 6.2 g/dl (6.3-8.2); Triglycerides 132 mg/dl (30-150); VLDL Cholesterol 26 mg/dL (0-40)
[2024-10-20 10:04] LABS: Intact Parathyroid Hormone 144.8 pg/mL (7.5-53.5)
[2024-10-20 10:05] LABS: Direct LDL Cholesterol 115.69 mg/dL (100-129)
[2024-10-20 10:09] LABS: 25-OH Vitamin D, Total 29.8 ng/mL (30-100)
[2024-10-20 10:11] LABS: Free Thyroxine Index 2.4 ug/dL (5.93-13.13); T4 (Thyroxine) 7.2 ug/dl (5.53-11.0); Triiodothryronine (T3) Uptake 34 % (23.5-40.5)
[2024-10-20 10:17] LABS: Hemoglobin A1C 5.6 % (4.0-6.0)
[2024-10-20 10:25] LABS: Thyroid Stimulating Hormone 0.49 uIU/mL (0.465-4.68)
[2024-10-20 10:39] LABS: Appearance,Urine CLEAR (Clear); Bilirubin,Urine Negative (Negative); Blood, Urine Negative (Negative); Color,Urine YELLOW (Yellow); Glucose,Urine (UA) Negative (Negative); Ketones,Urine Negative (Negative); Leukocyte Esterase,Urine Negative (Negative); Nitrate,Urine Negative (Negative); Protein,Urine Negative (Negative); Specific Gravity, Urine >= 1.030 (1.005-1.030); Urobilinogen,Urine 0.2 EU/dl (0.2)
[2024-10-20 10:45] LABS: Total Protein,Urine Random < 5.0 mg/dL (0.0-12.0)
[2024-10-20 10:56] LABS: Iron 117 ug/dL (37-170)
[2024-10-20 11:01] LABS: Folate 9.24 ng/mL
[2024-10-20 11:06] LABS: Total Iron Binding Capacity 268 ug/dL (265-497)
[2024-10-20 11:32] LABS: Ferritin 74.1 ng/ml (6.24-137)
[2024-10-20 11:35] LABS: Vitamin B12 349 pg/mL (239-931)
[2024-10-20 15:22] LABS: HIV (1&2) Antibody Rapid NONREACTIVE (NONREACTIVE)
--- NOTE | 2024-10-20 16:13 | US_ITS ---
FINAL REPORT CLINICAL HISTORY: monitor thyroid COMPARISON: 11/02/2023 FINDINGS: THYROID ULTRASOUND: The right lobe of the thyroid gland measures 48 mm in sagittal length. The dominant nodule in the right lobe of the thyroid gland measures 13 mm, was previously 12 mm. This mass is solid, hypoechoic, a TI-RADS category 4 nodule. The left lobe of the thyroid gland measures 45 mm in sagittal length. The dominant nodule in the left lobe of the thyroid gland measures 18 mm, was previously 16 mm. This mass is solid, hypoechoic, a TI-RADS category 4 nodule. The isthmus measures 3 mm in thickness. IMPRESSION: Dominant nodule in each lobe of the thyroid gland measures less than 15 mm in diameter. Both are TI-RADS category 4 nodules. Recommend additional follow-up thyroid ultrasound in 12 months. Reviewed, Interpreted and Dictated by Sawyer Meyer III, MD Transcribed by Christie Arreguin Authenticated and [facility]
[2024-10-25 14:43] LABS: Calcium, Ionized 4.9
[2024-10-25 14:44] LABS: HCV Ab NON-REACTIVE; Testosterone,Total 31
[2024-10-25 14:45] LABS: Estradiol 54.1; Estrogen 224
[2024-10-25 14:47] LABS: LH 4.2; Thyroglobulin Level <1.0
[2024-10-25 14:48] LABS: FSH 7.2; Thyroid Peroxidase Antibodies <9
[2024-10-25 14:49] LABS: Progesterone 0.1
== END 2024-10-20 23:59 | disposition home or self-care (01) ==
PROVIDERS: PCP Nurse Practitioner Family; Visit Provider Nurse Practitioner
DX: E03.9 Hypothyroidism, unspecified (principal); E04.2 Nontoxic multinodular goiter; R42 Dizziness and giddiness; N95.1 Menopausal and female climacteric states; E55.9 Vitamin D deficiency, unspecified; R53.83 Other fatigue; I10 Essential (primary) hypertension; Z11.4 Encounter for screening for human immunodeficiency virus [HIV]; Z13.1 Encounter for screening for diabetes mellitus; Z11.59 Encounter for screening for other viral diseases
CPT/HCPCS: 36415; 76536; 80050; 80053; 80061; 81001; 82306; 82330; 82397; 82607; 82670; 82672; 82728; 82746; 83001; 83002; 83036; 83540; 83550; 83735; 83970; 84100; 84144; 84156; 84403; 84436; 84443; 84479; 85025; 86376; 86800; 86803; 87086; 87389

== ENCOUNTER 2024-11-06 12:21 | Emergency (ER) | payer OTHER, SELFPAY ==
[2024-11-06 12:43] VITALS: BP 147/78; PULSE 112; RESP 19; TEMP 37.2; O2SAT 97; BMI 33.6
[2024-11-06 12:58] LABS: UTC Influenza A Antigen Negative (Negative); UTC Influenza B Antigen Negative (Negative); UTC Strep Screen (Rapid) Negative (Negative)
--- NOTE | 2024-11-06 13:04 | ED_ITS ---
Discharge Plan Disposition Patient Disposition: Home, Self-Care Condition: Good Prescriptions Prescriptions: New azithromycin [Zithromax Z-Elton] 250 mg tablet See Rx Instructions .ROUTE .COMPLEX 5 Days Qty: 6 0RF Rx Instructions: For 250 mg dose pack: take 500 mg today (day 1), then 250 mg for 4 days (days 2-5) benzonatate 100 mg capsule 100 mg PO TID PRN (Reason: cough) Qty: 30 0RF methylprednisolone [Medrol (Elton)] 4 mg tablets,dose pack See Rx Instructions .Route .COMPLEX 6 Days Qty: 21 0RF Rx Instructions: taper pack; No Action atomoxetine [Strattera] 100 mg capsule 100 mg PO DAILY Qty: 90 1RF Saccharomyces boulardii [Daily Probiotic (S. boulardii)] 250 mg capsule 250 mg PO BID psyllium husk [Daily Fiber] 0.4 gram capsule 0.4 g PO DAILY levothyroxine 50 mcg tablet See Rx Instructions .ROUTE .COMPLEX Qty: 30 11RF Dose Instruction: TAKE ONE TABLET BY MOUTH EVERY DAY FOR THYROID Rx Instructions: TAKE ONE TABLET BY MOUTH EVERY DAY FOR THYROID irbesartan [Avapro] 75 mg Tablet 75 mg PO DAILY Referrals Follow up/Referrals: Mariel Herron APRN [Primary Care Provider] - See instructions Activity Restrictions/Add. Instructions Additional Instructions/Restrictions: * Start antibiotic today. Be sure to complete entire prescription even if feeling better * Monitor temp. Tylenol every 4 hours as needed and / or ibuprofen every 6 hours as needed ( As long as your primary care physician has told you that it ok to take both. For fever/aches/pains ER if no less than 101 despite Tylenol or Motrin * Humidifier/vaporizer or hot steamy shower *Tessalon Perles will not cause drowsiness but use at bedtime to help stop cough so that you may get some rest. *Start steroid today. Helps with inflammation therefore, cough and wheezing. Follow directions on the package. Reviewed side effects. Patient reports taking them before. Follow up IMMEDIATELY for new or worsening of symptoms OR no noticeable improvement over the next 48-72 hours. 911 immediately for any life threatening symptoms such as chest pain or difficulty breathing Clinical Impressions Clinical Impression: Bronchitis Instructions Patient Instructions: DI for Sinusitis, Sinusitis, Acute Bronchitis Print Language Print Language: Kazakh Discharge ED [place] [facility] [place] General Stated complaint: cough, bodyaches, fever Mode of Arrival: Ambulatory Source of Information: Patient Limitations: No Limitations Time Seen by Provider: 11/06/24 13:04 Description of Symptoms (Recalled from Triage Doc. by RN): PATIENT C/O COUGH WITH YELLOW SPUTUM, BODY ACHES, HEAD CONGESTION, AND DIZZINESS THAT STARTED YESTERDAY MORNING HEENT Symptoms (Recalled from RN notes): Yes Resp Symptoms (Recalled from RN notes): Yes Skin Symptoms (Recalled from RN notes): No MS Symptoms (Recalled from RN notes): Yes Functional Status (Recalled from RN notes): WNL History of Present Illness Provider Complaint: Patient states that she has been having sinus pain and pressure, cough, chest congestion and drainage in the back of her throat for 3-5 days States feels like it is trying to set up in her chest so she came in to get checked Related Data Home Medications ?Medication ?Instructions ?Recorded ?Confirmed Saccharomyces boulardii 250 mg 250 mg PO BID 10/17/24 11/06/24 capsule (Daily Probiotic (S. boulardii)) psyllium husk 0.4 gram capsule 0.4 g PO DAILY 10/17/24 11/06/24 (Daily Fiber) irbesartan 75 mg tablet (Avapro) 75 mg PO DAILY 11/06/24 11/06/24 Previous Rx's ?Medication ?Instructions ?Recorded atomoxetine 100 mg capsule 100 mg PO DAILY #90 caps 03/03/24 (Strattera) levothyroxine 50 mcg tablet See Rx Instructions .Route 08/15/24 .COMPLEX #30 tabs azithromycin 250 mg tablet See Rx Instructions PO .COMPLEX 5 11/06/24 (Zithromax Z-Elton) days #6 tabs benzonatate 100 mg capsule 100 mg PO TID PRN cough #30 caps 11/06/24 methylprednisolone 4 mg tablets in See Rx Instructions .Route 11/06/24 a dose pack (Medrol (Elton)) .COMPLEX 6 days #21 tabs Allergies Allergy/AdvReac Type Severity Reaction Status Date / Time [facility] Allergy Unknown Verified 10/27/24 11:55 allergy reaction morphine Allergy Chest Pain Verified 10/27/24 11:55 Penicillins Allergy Unknown Verified 10/27/24 11:55 allergy reaction Worker's Comp Is this a Worker's Comp case?: No [facility] Disclaimer: The information contained in this section may have been updated after the patient was seen, as this information can be updated by other users. Medical History (Updated 11/06/24 @ 13:11 by Sosa Mcnulty APRN) Hyperparathyroidism Encounter for Routine Gynecological Examination Hoarseness or changing voice Posterior tibial tendinitis, right leg Right ankle swelling Posterior tibial tendinitis, left leg Tear of tendon of right ankle UTI (urinary tract infection) Attention deficit disorder (ADD) in adult Generalized anxiety disorder Depression Thyroid disease History of gastroesophageal reflux (GERD) Migraine Diverticulitis Uterine hypertrophy Left ovarian cyst Sigmoid diverticulitis Surgical History History of bilateral salpingectomy History of LAVH History of esophagogastroduodenoscopy History of tonsillectomy History of section History of cholecystectomy Family History Other Thyroid disorder Social History Smoking Status: Never smoker second hand exposure: No alcohol intake: never substance use type: denies use current occupational status: employed and other Travel in the last 8 weeks: None household members: spouse and children housing: house number of children: 3 current occupation: [employer] caffeine: Yes Have you lived/traveled outside US in past 30 days?: No Contact w/someone who lives/traveled outside US past 30 days?: No Exposure to someone with infectious disease in past 14 days?: No Do you have a fever (greater than 100.4 F or 38 C)?: No Have you tested positive for COVID-19: No Exposed to someone with COVID-19 in past 14 days?: No Do you have a sore throat?: Yes Do you have a cough?: Yes Do you have any weakness?: No Do you have any diarrhea?: No Are you experiencing any unusual bleeding?: No Do you have any muscle aches/pain?: No Do you have any abdominal pain?: No Are you experiencing loss of taste or smell?: No ROS Obtained: Yes All systems reviewed & no additional complaints except as documented and Yes Systems reviewed as appropriate & no additional complaints ex cept as documented Constitutional Constitutional: Reports system reviewed and no additional complaints, except as documented, Reports as per HPI, Reports body ache, Reports fever(s) and Reports headache(s) ENT Ears, Nose, Mouth, and Throat: Reports system reviewed and no additional complaints, except as documented, Reports as per HPI, Reports headache(s), Reports sinus pain and Reports sinus pressure Cardiovascular Cardiovascular: Reports system reviewed and no additional complaints, except as documented and Reports as per HPI Respiratory Respiratory: Reports system reviewed and no additional complaints, except as documented, Reports as per HPI, Denies shortness of breath, Reports chest congestion and Reports cough Gastrointestinal Gastrointestingal: Reports system reviewed and no additional complaints, except as documented and as per HPI Neurologic Neurologic: Reports headache(s) Physical Exam General General appearance: alert and in no apparent distress ENT ENT exam: Present mucous membranes moist Expanded ENT Exam Nose exam: Present sinus tenderness Throat exam: Present other (PND noted) Respiratory Respiratory exam: Present normal lung sounds bilaterally; Absent respiratory distress or wheezes Cardiovascular Cardiovascular exam: Present regular rate, normal rhythm and normal heart sounds Neurological Exam Neurological exam: Present alert, oriented X3 and normal gait Medical Decision Making Medical Records Screening: Per USPSTF and CDC recommendations, given the prevalence of disease in our region, it is our hospital?s policy to screen for HIV and viral Hepatitis for all patients aged 18 and over and those with ongoing risk factors. Piotr Inquiry Pt receiving controlled substance: No Piotr was queried for this patient: No Vital Signs: 11/06/24 12:43 Temperature 98.9 F Temperature Source Oral Pulse Rate [Left Brachial] 112 H Respiratory Rate 19 Blood Pressure [Left Arm] 147/78 H Blood Pressure Mean [Left Arm] 101 Blood Pressure Source [Left Arm] Automatic Cuff Blood Pressure Position [Left Arm] Sitting 02 Sat by Pulse Oximetry 97 Oxygen Delivery Method Room Air Lab Data Lab results reviewed: Yes I reviewed the patient's lab results. Lab Results 11/06/24 12:40: Influenza Type A Ag Negative, Influenza Type B Ag Negative, Strep Scn Rapid Clinic Negative Orders (Tests/Meds): ORDERS Category Date Time Status Strep Screen Confirmation Stat Micro 11/06/24 12:40 Received
[2024-11-06 13:12] VITALS: BP 147/78; PULSE 112; RESP 19; TEMP 37.2
== END 2024-11-06 13:14 | disposition home or self-care (01) ==
PROVIDERS: Emergency Provider Nurse Practitioner; PCP Nurse Practitioner Family
DX: J20.9 Acute bronchitis, unspecified (principal); J01.90 Acute sinusitis, unspecified
CPT/HCPCS: 87804; 87880; 99213; G0381

== ENCOUNTER 2024-11-08 08:10 | Outpatient (CLI) | payer OTHER, SELFPAY ==
--- NOTE | 2024-11-08 08:11 | NM_ITS ---
FINAL REPORT CLINICAL HISTORY: elevated parathyroid hormone 8:45am 20.6 [facility]ci tc sestamibi FINDINGS: 20.6 [facility]ci Technetium Sestamibi was administered. Planar imaging was performed early and two-hour delayed of the neck and upper thorax. Early imaging shows physiologic uptake within the upper neck involving the salivary glands and lower neck involving the thyroid gland. On delayed imaging there is no abnormal retained activity in the lower neck or mediastinum to localize parathyroid adenoma. IMPRESSION: No scintigraphic evidence of parathyroid adenoma. Authenticated and ERN
[2024-11-08] MEDS: ISO TC99M (SESTAMIBI);1 DOSE VIAL IV (09:23)
[2024-11-08] MEDS: SODIUM CHLORIDE 0.9% 10ML SYR (RAD ONLY) 10 ML IV (09:23)
== END 2024-11-08 23:59 | disposition home or self-care (01) ==
LOC: RAD 08:11
PROVIDERS: PCP Nurse Practitioner Family; Visit Provider Nurse Practitioner
DX: R79.89 Other specified abnormal findings of blood chemistry (principal)
CPT/HCPCS: 78070; A9500

== ENCOUNTER 2024-11-11 16:34 | Outpatient (CLI) | payer OTHER, SELFPAY ==
--- NOTE | 2024-11-11 16:37 | XR_ITS ---
PROCEDURE INFORMATION: Exam: XR Chest Exam date and time: 11/11/2024 4:38 PM Age: 49 years old Clinical indication: Cough TECHNIQUE: Imaging protocol: Radiologic exam of the chest. Views: 2 views. COMPARISON: CR XR CHEST 2V 03/29/2022 11:50 AM FINDINGS: Lungs: Unremarkable. No consolidation. Pleural spaces: Unremarkable. No pleural effusion. No pneumothorax. Heart/Mediastinum: Unremarkable. No cardiomegaly. Bones/joints: Unremarkable. IMPRESSION: No acute findings.
[2024-11-11 17:55] LABS: Free T4 (Free Thyroxine) 0.89 ng/dl (0.78-2.19)
[2024-11-11 18:58] LABS: Thyroid Stimulating Hormone 1.04 uIU/mL (0.465-4.68)
== END 2024-11-11 23:59 | disposition home or self-care (01) ==
LOC: LAB 16:35
PROVIDERS: Nurse Practitioner; PCP Nurse Practitioner Family; Visit Provider Student in an Organized Health Care Education/Training Program
DX: R05.9 Cough, unspecified (principal); R79.89 Other specified abnormal findings of blood chemistry
CPT/HCPCS: 36415; 71046; 84439; 84443

== ENCOUNTER 2025-02-15 08:16 | Outpatient (CLI) | payer OTHER, SELFPAY ==
[2025-02-15 08:22] LABS: Microscopic, Urine URINE MICROSCOPIC (MICROSCOPIC)
[2025-02-15 08:46] LABS: Basophils % 0.5 % (0.1-2.0); Eosinophils # 0.1 K/mm3 (0.0-0.4); Eosinophils % 2.3 % (0.1-12.0); Hemoglobin 13.8 g/dL (12.2-16.2); Lymphocytes # 2.6 K/mm3 (0.7-4.5); Lymphocytes % 45.4 % (10-50); Mean Corpuscular HGB Conc 33.7 g/dL (31.8-35.4); Mean Corpuscular Hemoglobin 29.9 pg (27.0-31.2); Mean Corpuscular Volume 88.7 fl (81-99); Mean Platelet Volume 10.8 fl (7.4-10.4); Monocytes # 0.4 K/mm3 (0.1-1.0); Monocytes % 7.2 % (1.7-9.3); Neutrophils # 2.5 K/mm3 (1.8-7.8); Neutrophils % 44.4 % (37.0-80.0); Platelet Count 244 K/mm3 (142-424); Red Blood Count 4.62 M/mm3 (4.20-5.40); Red Cell Distribution Width 11.8 % (11.5-17.5); White Blood Count 5.7 K/mm3 (4.8-10.8)
[2025-02-15 09:10] LABS: Appearance,Urine CLEAR (Clear); Bilirubin,Urine Negative (Negative); Blood, Urine Negative (Negative); Color,Urine YELLOW (Yellow); Glucose,Urine (UA) Negative (Negative); Ketones,Urine Negative (Negative); Leukocyte Esterase,Urine Negative (Negative); Nitrate,Urine Negative (Negative); PH,Urine 5.5 (5.0-8.5); Protein,Urine Negative (Negative); Urobilinogen,Urine 0.2 EU/dl (0.2)
[2025-02-15 09:27] LABS: Specific Gravity, Urine 1.026 (1.005-1.030)
[2025-02-15 09:32] LABS: Chloride 106 mmol/L (98-107); Sodium 140 mmol/L (136-145)
[2025-02-15 09:34] LABS: Blood Urea Nitrogen 16 mg/dl (7-17); Estimated Glomerular Filt Rate 89 ml/min (>60); GFR (African American) 108 ML/MIN (>60)
[2025-02-15 09:35] LABS: Alanine Aminotransferase 21 U/L (12-78); Albumin/Globulin Ratio 1.7 (1.1-1.8); Alkaline Phosphatase 85 U/L (38-126); Aspartate Amino Transferase 28 U/L (14-36); Bilirubin,Total 0.3 mg/dl (0.2-1.3); Calcium 8.7 mg/dl (8.4-10.2); Carbon Dioxide 28 mmol/L (22.0-30.0); Chol/HDL Ratio 4.2 (1-3.5); Cholesterol 162 mg/dl (140-200); Globulin 2.4 g/dL (1.3-3.2); Glucose 94 mg/dl (74-100); HDL Cholesterol 39 mg/dl (40-60); Iron 87 ug/dL (37-170); Total Protein,Serum 6.4 g/dl (6.3-8.2); Triglycerides 103 mg/dl (30-150); VLDL Cholesterol 21 mg/dL (0-40)
[2025-02-15 09:37] LABS: Hemoglobin A1C 5.6 % (4.0-6.0); Total Protein,Urine Random < 5.0 mg/dL (0.0-12.0)
[2025-02-15 09:51] LABS: Free T4 (Free Thyroxine) 1.02 ng/dl (0.78-2.19)
[2025-02-15 10:08] LABS: Thyroid Stimulating Hormone 0.77 uIU/mL (0.465-4.68)
[2025-02-15 10:12] LABS: Ferritin 76.2 ng/ml (6.24-137)
[2025-02-15 10:23] LABS: Squamous Epithelial Cell,Urine Occasional #/hpf (0-5)
[2025-02-15 10:24] LABS: Bacteria,Urine Trace /lpf
[2025-02-15 11:30] LABS: Total Iron Binding Capacity 266 ug/dL (265-497)
[2025-02-15 11:31] LABS: Direct LDL Cholesterol 97.79 mg/dL (100-129)
[2025-02-15 11:50] LABS: 25-OH Vitamin D, Total 31.5 ng/mL (30-100)
[2025-02-15 13:01] LABS: Intact Parathyroid Hormone 144.6 pg/mL (7.5-53.5)
[2025-02-15 13:39] LABS: Vitamin B12 324 pg/mL (239-931)
[2025-02-16 15:21] LABS: Cortisol,AM 14.1 ug/dL (6.2-19.4)
[2025-02-16 17:10] LABS: Calcium, Ionized 4.8 mg/dL (4.5-5.6)
== END 2025-02-15 23:59 | disposition home or self-care (01) ==
LOC: LAB 08:17
PROVIDERS: PCP Nurse Practitioner Family; Visit Provider Nurse Practitioner Family
DX: R53.83 Other fatigue (principal); R73.03 Prediabetes; I10 Essential (primary) hypertension; Z68.34 Body mass index [BMI] 34.0-34.9, adult; R79.89 Other specified abnormal findings of blood chemistry; E55.9 Vitamin D deficiency, unspecified; E04.2 Nontoxic multinodular goiter; E03.9 Hypothyroidism, unspecified
CPT/HCPCS: 36415; 80053; 80061; 81001; 82306; 82330; 82533; 82607; 82728; 83036; 83540; 83550; 83970; 84156; 84439; 84443; 85025; 87086

== ENCOUNTER 2025-02-25 04:49 | Emergency (ER) | payer OTHER, SELFPAY ==
--- OUTSIDE RECORDS SUMMARY | 2025-02-25 04:55 | XMS_ITS | Data Portability ---
Author Organization [facility] - [facility] Address [address] [place] [address] Assessment No assessment recorded. Plan of Treatment Reminders Order Date Submit Date Provider Last Modified By Organization Details Last Modified Time Details Appointments None recorded. Lab None recorded. Referral physical therapist referral - Patient is 12 weeks s/p posterior tibial tendon repair and calcaneal osteotomy. Please help transition out of boot and build up strength/RO M/function and decrease inflammatio n/pain. 2023 024 [facility], [address], [place], [address], 4 08:18:35 Procedures None recorded. Surgeries None recorded. Imaging None recorded. Medication Orders None recorded. Patient TargetsNo targets recorded. Patient InstructionsNo instructions recorded. Reason for Referral Physical Therapist Referral for Rupture of posterior tibial tendon Patient is 12 weeks s/p posterior tibial tendon repair and calcaneal osteotomy. Please help transition out of boot and build up strength/ROM/function and decrease inflammation/pain. Referring Physician: Fuentes Wei, Orthopedic Surgery Ankle/Foot, Encounter Date: 02/11/2024 Results Created Date Observation Date Name Description Value Unit Range Abnormal Flag Note LastModifiedBy Organization Detail LastModifiedTime 11/30/19 24 11/30/2023 XR, foot, 3 or more view Sudeep martino [facility] [place] [address] [place] [address] Christine baptiste Name: RUTHY Wallsmanolo oliva : [birth year] 75 K[place] baptiste 3 Orderi ng Provid er: BENJAM IN SCHNEI CHAU EXAM DATE: 2023 EXAM: XR RT FOOT COMPLE TE HISTOR Y: Pain COMPAR WHIT: 2022 FINDIN GS: A fractu re is presen t involv ing the cuboid . Minima l displa cement . No other defini te fractu re is noted. The fractu re site is somewh at diffic ult to evalua te due to bony overla p. Diffic ult to exclud e a fractu re of the distal aspect of the calcan eus. Consid er correl ating with CT IMPRES AMBER: 1. Cuboid fractu re with some irregu larity of the distal calcan eus as well. Consid er correl ating with CT [to better now] Interp reted By: Brian Bell MD Electr onical ly Signed By: Brian Bell MD on 3:00 PM [email or web address] [facility] [place] [address], [place], [address], 11/30/2023 15:12:12 12/28/19 24 12/28/2023 XR, foot, 3 or more view [facility] [place] [address] [facility] [place] [address] Patien t Name: RUTHY baptiste : [birth year] Patien t 3 Orderi ng Provid er: NICKO IN MIRIAMI CHAU EXAM DATE: 2023 EXAM: XR RT FOOT COMPLE TE HISTOR Y: Follow -up of prior surger y COMPAR WHIT: 024 FINDIN GS: There is irregu lar contou r along the anteri or aspect of the calcan eus which may repres ent a prior osteot patricia. This is unchan ged in alignm ent from the prior study. No acute fractu re is seen. There are minima l to mild degene rative change s. IMPRES AMBER: 1. There is a probab le prior osteot patricia of the right calcan eus. Interp reted By: Bibi harrell MD Electr onical ly Signed By: Bibi harrell MD on 3:39 PM [email or web address] [facility] [place] [address] , [place], [address], 12/28/2023 19:46:43 02/11/20 24 02/11/2024 XR, foot, 3 or more view Sudeep martino [facility] [address] [place] [address] Patimanolo t Name: RUTHY baptiste : [birth year] Christine baptiste 3 Orderi ng Provid er: BENJAM IN SCHNEI CHAU EXAM DATE: 2023 EXAM: XR RT FOOT COMPLE TE HISTOR Y: Follow -up of prior surger y COMPAR WHIT: 024 FINDIN GS: There is irregu lar contou r along the anteri or aspect of the calcan eus which may repres ent a prior osteot patricia. This is unchan ged in alignm ent from the prior study. No acute fractu re is seen. There are minima l to mild degene rative change s. IMPRES AMBER: 1. There is a prior osteot patricia of the right calcan eus. Interp reted By: Bibi harrell MD Electr onical ly Signed By: Bibi harrell MD on 3:55 PM [email or web address] [facility] [place] [address] , [place], [address], 02/11/2024 19:35:51 03/23/20 24 03/23/2024 XR, foot, 3 or more view Sudeep martino [facility] [address] [place] [address] Christine t Name: RUTHY baptiste : [birth year] Christine baptiste 3 Orderi ng Provid er: BENJAM IN SCHNEI CHAU EXAM DATE: 2023 EXAM: XR RT FOOT COMPLE TE HISTOR Y: Right foot pain. COMPAR WHIT: 024 FINDIN GS: There is a small bunion at the first metata rsal head with mild osteoa rthrit ic change s. There is mild enthes opathi c change about the calcan eus. There is mild hallux valgus deform ity. There is no fractu re. There is an osteot patricia of the calcan eus. This is unchan ged from the prior study. IMPRES AMBER: 1. There are mild degene rative change s in the right foot. There is unchan ged appear ance of a calcan eal osteot patricia. Interp reted By: Bibi harrell MD Electr onical ly Signed By: Bibi harrell MD on 03/23/20 24 3:58 PM [email or web address] [facility] [place] [address], [place], [address], 03/23/2024 16:10:17 Result Notes None recorded. Problems No Known Problems Procedures Surgical History Date Name Laterality Status Provider Name and Address Organization Details Recorded Time 11/17/2023 Op Note completed FUENTES WEI DPM [address] [place], [address], [facility] 11/17/2023 17:43:11 Imaging Results Imaging Date Name Status LastModified by Organiz ation Details LastModified Time 11/30/2023 XR, foot, 3 or more view completed [email or web address] [facility] [address], [place], [address], 11/30/2023 15:12:12 12/28/2023 XR, foot, 3 or more view completed [email or web address] [facility] [address], [place], [address], 12/28/2023 19:46:43 02/11/2024 XR, foot, 3 or more view completed [email or web address] [facility] [place] [address], [place], [address], 02/11/2024 19:35:51 03/23/2024 XR, foot, 3 or more view completed [email or web address] [facility] [place] [address] , [place], [address], 03/23/2024 16:10:17 Procedure Notes None recorded. Medical Equipment None Reported. Allergies Allergen ID Allergen Name Allergen Category Reaction Reaction Severity Criticality Documentation Date Start Date Code Code System Note Provider Name and Address Organization Details Recorded Time [id number] Aleve medicatio n Not available Not available Not available 10/09/2016200810 1 RxNorm Comme nt: Creat ed By: Nimesh huang; Creat ed Date: 2008 2:38: 58 PM; Not Available [facility] 6 12:47:19 273150 Ceclor medicatio n Not available Not available Not available 10/10/2016200863 5 RxNorm Comme nt: Creat ed By: Nimesh huang; Creat ed Date: 2008 2:37: 51 PM; Not Available [facility] 6 03:50:38 [id number] Product containin g penicilli n (product) medicatio n Not available Not available Not available 10/10/20162008 43894 8001 SNOMED Comme nt: Creat ed By: Nimesh huang; Creat ed Date: 2008 2:38: 32 PM; Not Available [facility] 6 03:50:38 Medications Name Sig Start Date Stop Date Status Note LastModified by Organization Details LastModified Time metronidaz ole 0.75 % lotion Two times a day 2008 active Instructi ons: for rosacea;F requency: bid;Alt Frequency : prn;Medic ation Descripti on: metronida zole topical; Dosage:1; Route:top ical; refills:5 ; Quantity: 60 lotion Not Available Not Available Not Available ondansetro n 4 mg disintegra ting tablet Place 1 tablet every 8 hours by transling ual route as needed for 7 days. 2023 active Not Available Not Available Not Avai lable Lexapro 10 mg tablet Daily active Duration: 30 days;Freq uency: daily;Med ication Descripti on: escitalop mariela; Dosage:1; Route:ora l; refills:5 ; Quantity: 30 tablet Not Available Not Available Not Available Synthroid active Not Available Not Tamiko ilable Not Available Strattera active Not Available Not Tamiko ilable Not Available oxycodone 10 mg tablet Take 1 tablet every 6 hours by oral route as needed for 10 days. 2023 active Not Available Not Available Not Avai lable Vitals Date Recorded Body height Body mass index (BMI) Body weight Provider Name and Address Organization Details Last Updated DateTime 11/30/2023 165.1 cm 34.1 kg/m2 42603.44 g [facility] 11/30/2023 14:31:28 Date Recorded Body height Body mass index (BMI) Body weight Provider Name and Address Organization Details Last Updated DateTime 12/28/2023 165.1 cm 34.1 kg/m2 16552.44 g [facility] 12/28/2023 14:08:03 Date Recorded Body height Body mass index (BMI) Body weight Provider Name and Address Organization Details Last Updated DateTime 02/11/2024 165.1 cm 34.1 kg/m2 84704.44 g [facility] 02/11/2024 15:39:55 Date Recorded Body height Body mass index (BMI) Body weight Provider Name and Address Organization Details Last Updated DateTime 03/23/2024 165.1 cm 34.1 kg/m2 78806.44 g [facility] 03/23/2024 15:49:26 Date Recorded Body height Body mass index (BMI) Body weight Provider Name and Address Organization Details Last Updated DateTime 06/08/2024 165.1 cm 34.1 kg/m2 13267.44 g [facility] 06/08/2024 16:12:09 Social History None recorded. Functional Status None recorded. Mental Status None recorded. Family History Nothing Reported. Medical History No medical history recorded. Gynecological HistoryNo gynecological history recorded. 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 Patient has had pain that has not improved after a year to the posterior tibial tendon. Patient had no issues prior to the injury a year ago but she has noticed that her foot seem to collapse more. Patient has failed conservati ve treatment including steroids, walker boot, orthotics, physical therapy with no relief. Recent MRI shows posterior tibial tendon tear to retro and infra malleolar region. X-rays show 50% talar head uncovering when weightbear ing. Patient states she is here for surgical repair. Patient has decent inversion strength on exam and is able to do toe rise with mild pain. Her heel does invert on toe rise however she does have significan t valgus. Patient states she has been told she needs a flatfoot rebuild when she gets her tendon repaired. Due to her never having an issue prior to the tendon and having a healthy talonavicu lar joint I think it is reasonable to proceed with Chaudhary calcaneal osteotomy when repairing the posterior tibial tendon to provide some restructur ing and to also save the [place] joints. Discussed with patient that her flatfoot could worsen over time and that orthotics with arch supports are very important for her and we can always do a TN fusion at a later date. After discussing pros and cons of posterior tibial tendon repair and possibly TN fusion and Chaudhary calcaneal osteotomy, patient is decided to proceed with Chaudhary calcaneal osteotomy and posterior tibial tendon repair. Will schedule surgery for November 17, patient would like to move to a closer date if something cancels. Acquired valgus heel 203 175957 M21.071 [id number] FUENTES WEI [facility] [address] [place] [address] 11/17/2023 12:28:24 11/17/2023 12:29:00 Rupture of posterior tibial tendon 278354273 S86.111A Pain in right foot 85739 59020 17862 M79.671 Acquired valgus heel 203 231555 M21.071 [id number] F[facility]ENTES WEI [facility] [place] [address] [address] 11/30/2023 14:29:04 11/30/2023 14:54:11 Postoperative care 048837904 Z48.89 Patient presents today 2 weeks postop on 11/17/23 and reports she is doing well and has abided by her postop restrictio ns. Has kept foot elevated as much as possible so as to avoid swelling.H er sutures were removed today; this was well tolerated. Reviewed imaging and clinical exam findings with her.Christine batpiste may now return to regular hygiene with the exception of no soaking the foot.At this point, she is to remain in the boot for nonweightb earing activities . Recommende d she come out of the boot for seated, passive ROM stretching exercise daily for ankle and toes.Crista yee demonstrat ed understand ing of this and is agreeable to the plan.Follo w up in 4 weeks for XOA and recheck; will be 6 weeks from surgery, possible transition to weightbear ing in boot -Cleared to return to work (from home). Needs a release; this was provided to her today. Rupture of posterior tibial tendon 659485216 S86.111D Pain in right foot 16865 71386 08683 M79.671 Acquired valgus heel 203 566541 M21.071 [id number] F[facility]ENTES WEI [facility] [place] [address] [address] 12/28/2023 14:05:38 12/28/2023 14:49:57 Postoperative care [id number] Z48.89 Patient presents today 6 weeks postop and reports she has been doing well and has abided by her postop restrictio ns. Concerned with skin discolorat ion. States the boot is making her foot swell.Revi ewed imaging and clinical exam findings with patient. There is evidence of healing and well alignment present on XR. Incision well healed without signs of infection or erythema.A t this point, she may progress to full WB in walker boot; recommende d she start this at home on flat surfaces and may progress to more time to her comfort. Assured her that the skin discolorat ion is normal and should continue to improve over time. Recommende d compressin g stocking for swelling and discolorat ion as well.All questions were answered in clinic today. Patient demonstrat ed understand ing of this and is agreeable to the plan.Follo w up in 6 weeks for recheck; will be 12 weeks from surgery. Possible transition out of boot and begin physical therapy. Rupture of posterior tibial tendon 470040309 S86.111D Acquired valgus heel 203 961163 M21.071 Pain in right foot 40227 12443 25712 M79.671 [id number] FUENTES WEI [facility] [place] [address] [address] 02/11/2024 15:33:28 02/11/2024 15:56:45 Postoperative care [id number] Z48.89 Patient follows up today 12 weeks s/p Chaudhary Calcaneal Osteotomy right foot and repair posterior tibial tendon right foot on 11/17/23 and reports she is doing well and seeing some improvemen t. She states that when she doesn't wear compressin g stockings, she does experience some minor swelling and discolorat ion, but this is much improved when compared to before.Rev iewed imaging and clinical exam findings with patient. There is evidence of healing and well alignment present. Incision well healed without signs of infection or erythema. Assured patient that the swelling and discolorat ion should continue to improve over time.At this point, she can start to slowly transition out of the boot. Recommende d she start this at home on flat surfaces. PT will help her to full transition out of the boot, to her comfort.-R yulia for PT was sent on her behalf.All questions answered in clinic; patient demonstrat ed understand ing and is agreeable to the plan.Follo w up in 6 weeks for XOA and recheck. Will be 4.5 months from surgery. Rupture of posterior tibial tendon 943598982 S86.111D -surgery 11/17/23 Acquired valgus heel 203 221087 M21.071 Pain in right foot 30031 70883 71934 M79.671 [id number] FUENTES WEI [facility] [place] [address] [place] [address] 03/23/2024 15:43:51 03/23/2024 16:07:26 Postoperative care [id number] Z48.89 Patient follows up today 4 months postop and reports she is doing well and continues to see improvemen t in her pain and function. Has been wearing Hokas tennis shoes; these seem to help alleviate pain as well.Revie wed imaging and clinical exam findings with patient. Chaudhary calcaneal osteotomy well-heale d, no significan t pain today on exam.At this point, activities limited as tolerated to pain and continue good shoes such as Hoka's.All questions were answered in clinic today; patient demonstrat ed understand ing of this and is agreeable to the plan.Follo w up as needed Rupture of posterior tibial tendon 429791714 S86.111D -surgery 11/17/23 Acquired valgus heel 203 978706 M21.071 Pain in right foot 36045 39853 95222 M79.671 [id number] FUENTES WEI [facility] [place] [address] [place] [address] 06/08/2024 16:11:14 06/08/2024 16:19:40 Postoperative care [id number] Z48.89 Patient follows up today 6 months s/p right Chaudhary Calcaneal Osteotomy right foot, Repair posterior tibial tendon right foot, Applicatio n of posterior splint right footand Use of Flouroscop y right foot on 11/17/23.Rep orts she felt sharp pains on outside of her foot and heel for several days after awkward step on her staircase. States she feels like it is resolving. .Reviewed imaging and clinical exam findings with patient. Everything appears normal. Discussed with patient that she may have some aches and pains as her foot gets adjusted to his new shape.At this point, continue normal activity.A ll questions were answered in clinic. Patient demonstrat ed understand ing of this and is agreeable to the plan.Follo w up as needed. Rupture of posterior tibial tendon 968057912 S86.111D -surgery 11/17/23 Acquired valgus heel 203 984312 M21.071 Pain in right foot 27553 98905 36836 M79.671 Health Concerns Section Related Observation LastModified by Organization Detai ls LastModified Time None Recorded Concern Status LastModified by Organization Details LastModified Time None Recorded Advance Directives Directive None Recorded Payers Encounter Date Sequence Insurance Name Policy Number Policy Andujar Covered Member ID Andujar Member ID Guarantor Name 11/30/2023 1 [employer] [id number] Lourena A Chaya [id number] Lourena A Chaya 12/28/2023 1 [employer] [id number] Lourena A Chaya [id number] Lourena A Chaya 02/11/2024 1 [employer] [id number] Lourena A Chaya [id number] Lourena A Chaya 03/23/2024 1 [employer]MR [id number] Lourena A Chaya [id number] Lourena A Chaya 06/08/2024 1 UMR [id number] Lourena A Chaya [id number] Lourena A Chaya Notes Date Note Type Note Provider Name and Address Organization Details Recorded Time 11/30/2023 text/html 11-30-23: Patient returns {{1 2* 3 4 5 6 7 8 9 10 11 12}} {{Days Week(s)* Mo nth(s)}} status post {{Left Right* Bila teral}}1. Chaudhary Calcaneal Osteotomy right foot2. Repair posterior tibial tendon right foot3. Application of posterior splint right foot4. Use of Flouroscopy right foot DOS: 11/17/23 Is currently taking {{no 1 2 3 4 <1#}} doses of narcotics daily. Patient {{Does Not* Does}} request a refill of pain medication. Ambulatory Assisting Device: {{walker crutches scooter* cane whee lchair none}} Physical Therapy: {{Outpatient None* }} FUENTES WEI DPM [address] [place], [address], [facility] 11/30/2023 15:11:23 12/28/2023 text/html 12-28-23: Patient returns {{1 2 3 4 5 6* 7 8 9 10 11 12}} {{Days Week(s)* Mo nth(s)}} status post {{Left Right* Bila teral}}1. Chaudhary Calcaneal Osteotomy right foot2. Repair posterior tibial tendon right foot3. Application of posterior splint right foot4. Use of Flouroscopy right foot DOS: 11/17/23 Is currently taking {{no* 1 2 3 4}} doses of narcotics daily. Patient {{Does Not* Does}} request a refill of pain medication. Ambulatory Assisting Device: {{walker crutches scooter* cane whee lchair none}} Physical Therapy: {{Outpatient None* }} FUENTES WEI D[facility] [address] [place], [address], [facility] 12/28/2023 15:46:14 02/11/2024 text/html 02-11-24: Patient returns {{1 2 3 4 5 6 7 8 9 10 11 12*}} {{Days Week(s)* Mo nth(s)}} status post {{Left Right* Bila teral}}1. Chaudhary Calcaneal Osteotomy right foot2. Repair posterior tibial tendon right foot3. Application of posterior splint right foot4. Use of Flouroscopy right foot DOS: 11/17/23 Is currently taking {{no* 1 2 3 4}} doses of narcotics daily. Patient {{Does Not* Does}} request a refill of pain medication. Ambulatory Assisting Device: {{walker crutches scooter cane wheel chair none*}} Physical Therapy: {{Outpatient None* }} FUENTES WEI D[facility] [address] [place], [address], [facility] 02/11/2024 19:36:45 03/23/2024 text/html 03-23-24: Patient returns {{1 2 3 4* 5 6 7 8 9 10 11 12}} {{Days Week(s) Mon th(s)*}} status post {{Left Right* Bila teral}}1. Chaudhary Calcaneal Osteotomy right foot2. Repair posterior tibial tendon right foot3. Application of posterior splint right foot4. Use of Flouroscopy right foot DOS: 11/17/23 Is currently taking {{no* 1 2 3 4}} doses of narcotics daily. Patient {{Does Not* Does}} request a refill of pain medication. Ambulatory Assisting Device: {{walker crutches scooter cane wheel chair none*}} Physical Therapy: {{Outpatient None* }} FUENTES WEI D[facility] [address] [place], [address], [facility] 03/23/2024 16:11:49 06/08/2024 text/html 06-08-24: Patient returns {{1 2 3 4 5 6* 7 8 9 10 11 12}} {{Days Week(s) Mon th(s)*}} status post {{Left Right* Bila teral}}1. Chaudhary Calcaneal Osteotomy right foot2. Repair posterior tibial tendon right foot3. Application of posterior splint right foot4. Use of Flouroscopy right foot DOS: 11/17/23 Is currently taking {{no* 1 2 3 4}} doses of narcotics daily. Patient {{Does Not* Does}} request a refill of pain medication. Ambulatory Assisting Device: {{walker crutches scooter cane wheel chair none*}} Physical Therapy: {{Outpatient None* }}Patient states she took an awkward step on the staircase and had pain for several days. Wanted to get it checked out to make sure everything is okay. FUENTES WEI D[facility] [address] [place], [address], [facility] 06/08/2024 21:14:43 OBGyn Episode No OBEpisode recorded.
[2025-02-25 05:00] VITALS: BP 152/93; PULSE 105; RESP 18; TEMP 37.6; O2SAT 97; BMI 32.5
[2025-02-25 05:04] LABS: Appearance,Urine CLEAR (Clear); Bilirubin,Urine Negative (Negative); Blood, Urine Negative (Negative); Color,Urine YELLOW (Yellow); Glucose,Urine (UA) Negative (Negative); Ketones,Urine Negative (Negative); Leukocyte Esterase,Urine Negative (Negative); Microscopic, Urine URINE MICROSCOPIC (MICROSCOPIC); Nitrate,Urine Negative (Negative); PH,Urine 5.5 (5.0-8.5); Protein,Urine Negative (Negative); Specific Gravity, Urine 1.025 (1.005-1.030); Urobilinogen,Urine 0.2 EU/dl (0.2)
--- NOTE | 2025-02-25 05:06 | CT_ITS ---
PROCEDURE INFORMATION: Exam: CT Abdomen And Pelvis With Contrast Exam date and time: 02/25/2025 5:31 AM Age: 49 years old Clinical indication: Abdominal pain; Epigastric; Additional info: Epigastric and llq pain, HX diverticulitis TECHNIQUE: Imaging protocol: Computed tomography of the abdomen and pelvis with contrast. Radiation optimization: All CT scans at this facility use at least one of these dose optimization techniques: automated exposure control; mA and/or kV adjustment per patient size (includes targeted exams where dose is matched to clinical indication); or iterative reconstruction. Contrast material: ISOVUE; Contrast volume: 75 ml; Contrast route: IV; COMPARISON: CT ABDOMEN PELVIS W CON 11/11/2022 11:57 PM FINDINGS: Liver: Normal. No mass. Gallbladder and biliary ducts: Normal. No calcified stones. No ductal dilation. Pancreas: Normal. No ductal dilation. Spleen: Normal. No splenomegaly. Adrenal glands: Normal. No mass. Kidneys and ureters: Normal. No hydronephrosis. Stomach and bowel: Concentric focal thickening and inflammation of the mid sigmoid colon. Adjacent edema is noted. There is also loss of the fat plane between the sigmoid and the bladder dome in the adjacent bladder is mildly thickened. Appendix: No evidence of appendicitis. Intraperitoneal space: Unremarkable. No free air. No significant fluid collection. Vasculature: Unremarkable. No abdominal aortic aneurysm. Lymph nodes: Unremarkable. No enlarged lymph nodes. Urinary bladder: No air is seen in the bladder however. Reproductive: Unremarkable as visualized. Bones/joints: Unremarkable. No acute fracture. Soft tissues: Unremarkable. IMPRESSION: Findings of moderate sigmoid diverticulitis, no perforation abscess or obstruction noted. However there is focal thickening of the bladder dome, this could represent a developing colovaginal fistula although no air is currently in the bladder.
--- NOTE | 2025-02-25 05:10 | ED_ITS ---
Discharge Plan Disposition Patient Disposition: Home, Self-Care Prescriptions Prescriptions: New metronidazole 500 mg tablet 500 mg PO Q8H 5 Days Qty: 15 0RF levofloxacin 750 mg tablet 750 mg PO DAILY 4 Days Qty: 4 0RF No Action Saccharomyces boulardii [Daily Probiotic (S. boulardii)] 250 mg capsule 250 mg PO BID psyllium husk [Daily Fiber] 0.4 gram capsule 0.4 g PO DAILY cholecalciferol (vitamin D3) 25 mcg (1,000 unit) capsule 25 mcg PO DAILY Mounjaro 2.5 mg/0.5 mL pen injector 2.5 mg SQ WEEKLY Qty: 2.5 0RF Rx Instructions: for 4 weeks levothyroxine 50 mcg tablet See Rx Instructions .ROUTE .COMPLEX Qty: 30 11RF Dose Instruction: TAKE ONE TABLET BY MOUTH EVERY DAY FOR THYROID Rx Instructions: TAKE ONE TABLET BY MOUTH EVERY DAY FOR THYROID atomoxetine [Strattera] 100 mg capsule 100 mg PO DAILY Qty: 90 1RF escitalopram oxalate 10 mg tablet 10 mg PO DAILY Qty: 30 2RF irbesartan [Avapro] 75 mg Tablet 75 mg PO DAILY Referrals Follow up/Referrals: Mariel Herron APRN [Primary Care Provider] - See instructions Activity Restrictions/Add. Instructions Additional Instructions/Restrictions: Please take Tylenol and ibuprofen as needed for pain. Please take antibiotics as prescribed for treatment of diverticulitis. Please follow-up with your primary care provider. Please return to the emergency department if you develop any new or worsening symptoms or become concerned for your health. Clinical Impressions Clinical Impression: Diverticulitis Instructions Patient Instructions: DI for Acute Abdominal Pain Print Language Print Language: Japanese Discharge ED Provider: Saud Arora Adult HPI General Chief complaint: Abdominal Pain Stated complaint: Lower L ABD pain, nausea Time Seen by Provider: 02/25/25 04:50 Mode of Arrival: Ambulatory Source of Information: Patient Description of Symptoms (Recalled from ER Triage Doc. by RN): Pt presents with LLQ pain that radiates into her back with associated bloating and nausea that began approx 1 day ago. Pt reports associated chills at home as well. History of Present Illness HPI narrative: 49-year-old female with history of of diverticulitis, hypertension, depression, hypothyroidism presents for abdominal pain. She reports some epigastric discomfort starting yesterday morning, now primarily has left lower quadrant pain. She reports it feels somewhat like when she had diverticulitis in the past. Denies fever at home. Denies any chest pain or shortness of breath. Related Data Home Medications ?Medication ?Instructions ?Recorded ?Confirmed Saccharomyces boulardii 250 mg 250 mg PO BID 10/17/24 02/25/25 capsule (Daily Probiotic (S. boulardii)) psyllium husk 0.4 gram capsule 0.4 g PO DAILY 10/17/24 02/25/25 (Daily Fiber) irbesartan 75 mg tablet (Avapro) 75 mg PO DAILY 11/06/24 02/25/25 cholecalciferol (vitamin D3) 25 25 mcg PO DAILY 11/30/24 02/25/25 mcg (1,000 unit) capsule Previous Rx's ?Medication ?Instructions ?Recorded levothyroxine 50 mcg tablet See Rx Instructions .Route 08/15/24 .COMPLEX #30 tabs atomoxetine 100 mg capsule 100 mg PO DAILY #90 caps 12/15/24 (Strattera) escitalopram oxalate 10 mg tablet 10 mg PO DAILY #30 tabs 12/29/24 tirzepatide 2.5 mg/0.5 mL 2.5 mg (0.5 mL) SQ WEEKLY #2.5 mL 01/16/25 subcutaneous pen injector (Jose Manuel) levofloxacin 750 mg tablet 750 mg PO DAILY 4 days #4 tabs 02/25/25 metronidazole 500 mg tablet 500 mg PO Q8H 5 days #15 tabs 02/25/25 Allergies Allergy/AdvReac Type Severity Reaction Status Date / Time cefaclor (From [facility]) Allergy Unknown Verified 01/16/25 15:54 allergy reaction morphine Allergy Chest Pain Verified 01/16/25 15:54 Penicillins Allergy Unknown Verified 01/16/25 15:54 allergy reaction PFSH PFSH Disclaimer: The information contained in this section may have been updated after the patient was seen, as this information can be updated by other users. Medical History (Updated 02/25/25 @ 05:51 by Saud Arora MD) Dizziness Bronchitis Encounter for hepatitis C screening test for low risk patient Screening for HIV (human immunodeficiency virus) Elevated parathyroid hormone Hyperparathyroidism Encounter for Routine Gynecological Examination Hoarseness or changing voice Posterior tibial tendinitis, right leg Right ankle swelling Posterior tibial tendinitis, left leg Tear of tendon of right ankle UTI (urinary tract infection) Attention deficit disorder (ADD) in adult Generalized anxiety disorder Depression Thyroid disease History of gastroesophageal reflux (GERD) Migraine Diverticulitis Uterine hypertrophy Left ovarian cyst Sigmoid diverticulitis Surgical History History of bilateral salpingectomy History of LAVH History of esophagogastroduodenoscopy History of tonsillectomy History of section History of cholecystectomy Family History Other Thyroid disorder Social History Smoking Status: Never smoker second hand exposure: No alcohol intake: never substance use type: denies use current occupational status: employed and other Travel in the last 8 weeks: None household members: spouse and children housing: house number of children: 3 current occupation: [employer] caffeine: Yes Have you lived/traveled outside [place] in past 30 days?: No Contact w/someone who lives/traveled outside US past 30 days?: No Exposure to someone with infectious disease in past 14 days?: No Do you have a fever (greater than 100.4 F or 38 C)?: No Have you tested positive for COVID-19: No Exposed to someone with COVID-19 in past 14 days?: No Do you have a sore throat?: No Do you have a cough?: No Do you have any weakness?: No Do you have any diarrhea?: No Are you experiencing any unusual bleeding?: No Do you have any muscle aches/pain?: No Do you have any abdominal pain?: Yes Are you experiencing loss of taste or smell?: No Other Medical History Have you received the Flu Vaccine for this season: Yes Have you received the Pneumonia Vaccine: Yes ROS Obtained: Yes All systems reviewed & no additional complaints except as documented Physical Exam General General appearance: alert and in no apparent distress Head Head exam: atraumatic and normocephalic Eye Eye exam: Present normal appearance, PERRL and EOMI ENT ENT exam: Present normal oropharynx and normal external ear exam Neck Neck exam: Present normal inspection and full ROM Chest Chest inspection: Present normal inspection and symmetric chest wall rise; Absent tenderness Respiratory Respiratory exam: Present normal lung sounds bilaterally; Absent respiratory distress Cardiovascular Cardiovascular exam: Present regular rate and normal rhythm Abdominal Exam Abdominal exam: Present soft and tenderness (Mild left lower quadrant abdominal tenderness without peritonitis); Absent distention or guarding Extremities Exam Extremities exam: Present normal inspection; Absent edema or joint swelling Back Exam Back exam: Present normal inspection; Absent tenderness Neurological Exam Neurological exam: Present alert and oriented X3; Absent motor sensory deficit Psychiatric Psychiatric exam: Present normal affect and normal mood Skin Skin exam: Present warm, dry and normal color Lymphatic Lymphatic Findings: no adenopathy Medical Decision Making Medical Records Medical records reviewed: Yes I reviewed the patient's medical records. Screening: Per USPSTF and CDC recommendations, given the prevalence of disease in our region, it is our hospital?s policy to screen for HIV and viral Hepatitis for all patients aged 18 and over and those with ongoing risk factors. Piotr Inquiry Pt receiving controlled substance: No Piotr was queried for this patient: No Vital Signs: 02/25/25 05:00 02/25/25 05:50 02/25/25 06:00 Temperature 99.6 F Temperature Source Oral Pulse Rate 89 77 Pulse Rate [Radial] 105 H Respiratory Rate 18 Blood Pressure 127/78 111/74 Blood Pressure [Right Arm] 152/93 H Blood Pressure Mean [Right Arm] 112 Blood Pressure Position [Right Arm] Sitting 02 Sat by Pulse Oximetry 97 97 94 L Oxygen Delivery Method Room Air Lab Data Lab results reviewed: Yes I reviewed the patient's lab results. Lab Results 02/25/25 04:56: Urine Color Yellow, Urine Appearance Clear, Urine pH 5.5, Ur Specific [place] 1.025, Urine Protein Negative, Urine Glucose (UA) Negative, Urine Ketones Negative, Urine Blood Negative, Urine Nitrate Negative, Urine Bilirubin Negative, Urine Urobilinogen 0.2, Ur Leukocyte Esterase Negative, Urine RBC None, Urine WBC None, Ur Squamous Epith Cells Occasional, Urine Bacteria Trace 02/25/25 05:04: WBC 11.0 H, RBC 4.91, Hgb 14.5, Hct 43.3, MCV 88.2, MCH 29.5, MCHC 33.5, RDW 11.9, Plt Count 262, MPV 10.9 H, Neut % (Auto) 63.7, Lymph % (Auto) 27.9, Angelina % (Auto) 6.3, Eos % (Auto) 1.4, Baso % (Auto) 0.4, Neut # (Auto) 7.0, Lymph # (Auto) 3.1, Angelina # (Auto) 0.7, Eos # (Auto) 0.2, Baso # (Auto) 0.0, Sodium 136, Potassium 4.8, Chloride 104, Carbon Dioxide 23, Anion Gap 13.8, BUN 16, Creatinine 0.60, Estimated Creat Clear 154, Estimated GFR 106, Est GFR ( Amer) 129, Glucose 111 H, Lactate 1.2, Calcium 9.2, Total Bilirubin 0.8, AST 38 H, ALT 23, Alkaline Phosphatase 92, Total Protein 8.0, Albumin 4.6, Globulin 3.4 H, Albumin/Globulin Ratio 1.4 02/25/25 05:06: Magnesium 1.7, Lipase 250 02/25/25 05:04 02/25/25 05:04 Orders (Tests/Meds): ED MEDICATIONS Generic Name Dose Route Start Last Admin Trade Name Freq PRN Reason Stop Dose Admin Sodium Chloride 10 ml 02/25/25 05:41 02/25/25 05:45 Sodium Chloride 0.9% 10ml Syr (Rad Only) IV 03/27/25 05:40 10 ml NEEDED PRN Administration Maintain IV Site Discontinued Medications Generic Name Dose Route Start Last Admin Trade Name Freq PRN Reason Stop Dose Admin Acetaminophen 1,000 mg 02/25/25 05:06 02/25/25 05:14 Acetaminophen 500mg Tab PO 02/25/25 05:07 1,000 mg ONCE ONE Administration Iopamidol 75 ml 02/25/25 05:41 02/25/25 05:45 Iopamidol-370 (76%);100ml Bottle IV 02/25/25 05:42 75 ml ONCE ONE Administration Levofloxacin 750 mg 02/25/25 06:03 02/25/25 06:18 Levofloxacin 750 Mg Tablet PO 02/25/25 06:04 750 mg ONCE ONE Administration Metronidazole 500 mg 02/25/25 06:03 02/25/25 06:18 Metronidazole 500 Mg Tablet PO 02/25/25 06:04 500 mg ONCE ONE Administration Ondansetron HCl 4 mg 02/25/25 05:06 02/25/25 05:13 Ondansetron 4mg/2ml Vial IV 02/25/25 05:07 4 mg ONCE ONE Administration ORDERS Category Date Time Status CT abdomen pelvis w con Stat Cat Scan 02/25/25 05:06 Completed Complete Blood Count Auto Diff Stat Lab 02/25/25 05:04 Completed Comprehensive Metabolic Panel Routine Lab 02/25/25 05:04 Completed Lactic Acid Stat Lab 02/25/25 05:04 Completed Lipase Stat Lab 02/25/25 05:06 Completed Magnesium Stat Lab 02/25/25 05:06 Completed UA [Urinalysis and Microscopic] Stat Lab 02/25/25 04:56 Completed Urine Culture Stat Micro 02/25/25 05:05 Received Medical Decision Narrative: 49-year-old female with history of diverticulitis presents with 1 day of abdominal pain, worse in the left lower quadrant. History was obtained via interactive discussion with patient, chart review. On arrival, patient is [afebrile, hemodynamically stable, satting appropriately, alert, oriented x4, GCS 15], moving all extremities spontaneously. Full physical exam performed and significant for mild left lower quadrant abdominal tenderness without peritonitis Differential includes but is not limited to diverticulitis, constipation, perforation, abscess, UTI, kidney stone. Patient was given Tylenol and Zofran for symptomatic management and correction of underlying abnormalities. Workup initiated including CBC CMP UA lipase lactate CT abdomen pelvis with IV contrast. On re-evaluation, patient [remains afebrile, HD stable.] Laboratory workup independently interpreted by me and significant for minimal leukocytosis, no significant electrolyte derangement, negative lipase. Imaging independently interpreted by me and significant for sigmoid diverticulitis without obvious abscess or perforation. See radiology read for full review of final results. Admission for IV antibiotics was considered, but deemed unnecessary due to history and exam. Given patient history, exam and workup, patient's presentation most likely represents acute sigmoid diverticulitis. Patient was given Levaquin and Flagyl and discharged with prescription for same. Return precautions given.. Procedures Risk/Benefits of Procedure(s) Were Explained: Yes Critical Care Critical Care Time Critical Care Time: No
[2025-02-25 05:13] LABS: Basophils % 0.4 % (0.1-2.0); Eosinophils # 0.2 K/mm3 (0.0-0.4); Eosinophils % 1.4 % (0.1-12.0); Hematocrit 43.3 % (37.0-47.0); Hemoglobin 14.5 g/dL (12.2-16.2); Lymphocytes # 3.1 K/mm3 (0.7-4.5); Lymphocytes % 27.9 % (10-50); Mean Corpuscular HGB Conc 33.5 g/dL (31.8-35.4); Mean Corpuscular Hemoglobin 29.5 pg (27.0-31.2); Mean Corpuscular Volume 88.2 fl (81-99); Mean Platelet Volume 10.9 fl (7.4-10.4); Monocytes # 0.7 K/mm3 (0.1-1.0); Monocytes % 6.3 % (1.7-9.3); Neutrophils % 63.7 % (37.0-80.0); Nucleated Red Blood Cells # 0 10^3/uL; Nucleated Red Blood Cells % 0 %; Platelet Count 262 K/mm3 (142-424); Red Blood Count 4.91 M/mm3 (4.20-5.40); Red Cell Distribution Width 11.9 % (11.5-17.5); Red Cell Distribution Width-SD 38.4 fL
[2025-02-25] MEDS: ONDANSETRON 4MG/2ML VIAL 4 MG IV (05:13)
[2025-02-25] MEDS: ACETAMINOPHEN 500MG TAB 1000 MG PO (05:14)
[2025-02-25 05:18] LABS: Lipase 250 U/L (23-300)
--- NOTE | 2025-02-25 05:18 | PC.NURSE ---
warm blanket given upon pt request.
[2025-02-25 05:19] LABS: Magnesium 1.7 mg/dl (1.6-2.3)
[2025-02-25 05:19] LABS: Lactic Acid 1.2 mmol/L (0.7-2.1)
[2025-02-25 05:23] LABS: Bacteria,Urine Trace /lpf; Squamous Epithelial Cell,Urine Occasional #/hpf (0-5)
[2025-02-25 05:24] LABS: Albumin Level 4.6 g/dl (3.5-5.0); Chloride 104 mmol/L (98-107)
[2025-02-25 05:25] LABS: Potassium 4.8 mmoL/L (3.5-5.1); Sodium 136 mmol/L (136-145)
[2025-02-25 05:27] LABS: Blood Urea Nitrogen 16 mg/dl (7-17); Creatinine Clearance Estimated 154 mL/min (50-200); Estimated Glomerular Filt Rate 106 ml/min (>60); GFR (African American) 129 ML/MIN (>60)
[2025-02-25 05:28] LABS: Alanine Aminotransferase 23 U/L (12-78); Albumin/Globulin Ratio 1.4 (1.1-1.8); Alkaline Phosphatase 92 U/L (38-126); Anion Gap 13.8 mEq/L (5-15); Aspartate Amino Transferase 38 U/L (14-36); Bilirubin,Total 0.8 mg/dl (0.2-1.3); Calcium 9.2 mg/dl (8.4-10.2); Carbon Dioxide 23 mmol/L (22.0-30.0); Globulin 3.4 g/dL (1.3-3.2); Glucose 111 mg/dl (74-100)
--- NOTE | 2025-02-25 05:36 | PC.NURSE ---
pt taken to ct scan at this time
--- NOTE | 2025-02-25 05:43 | PC.NURSE ---
pt returned from radiology without incident.
[2025-02-25] MEDS: SODIUM CHLORIDE 0.9% 10ML SYR (RAD ONLY) 10 ML IV (05:45)
[2025-02-25] MEDS: IOPAMIDOL-370 (76%);100ML BOTTLE 75 ML IV (05:45)
[2025-02-25 05:50] VITALS: BP 127/78; PULSE 89; O2SAT 97
--- NOTE | 2025-02-25 05:50 | PC.NURSE ---
pt back to room from bathroom at this time. pt reports she is still having abdominal pain, but would not like any additional medications. MD Arora made aware. Pt voices no needs at this time.
[2025-02-25 06:00] VITALS: BP 111/74; PULSE 77; O2SAT 94
[2025-02-25] MEDS: levoFLOXacin 750 MG TABLET PO (06:18)
[2025-02-25] MEDS: metroNIDAZOLE 500 MG TABLET PO (06:18)
[2025-02-25 06:47] VITALS: BP 120/77; PULSE 68; RESP 16; TEMP 37.2; O2SAT 98
--- NOTE | 2025-02-26 16:56 | PC.NURSE ---
URINE CULTURE DISCUSSED WITH DR LIVINGSTON, NO NEW ORDERS
--- NOTE | 2025-03-01 07:42 | PC.NURSE ---
I spoke with about finalized urine culture results. No new orders, no changes in treatment needed.
== END 2025-02-25 06:48 | disposition home or self-care (01) ==
PROVIDERS: Emergency Provider Emergency Medicine; PCP Nurse Practitioner Family
DX: R10.32 Left lower quadrant pain (principal); K57.32 Diverticulitis of large intestine without perforation or abscess without bleeding; R11.0 Nausea
CPT/HCPCS: 74177; 80053; 81001; 83605; 83690; 83735; 85025; 87086; 87088; 96374; 99284; J2405; Q9967

== ENCOUNTER 2025-03-02 15:51 | Outpatient (CLI) | payer OTHER, SELFPAY ==
--- NOTE | 2025-03-02 16:00 | MM_ITS ---
PROCEDURE INFORMATION: Exam: MG Bilateral Screening 3D Mammography Exam date and time: 03/02/2025 3:55 PM Age: 49 years old Clinical indication: Screening. No family history of breast cancer. TECHNIQUE: Imaging protocol: Bilateral Screening tomosynthesis and 2D mammography including computer-aided detection (CAD) when performed. COMPARISON: 1. MG MM DIG SCREENING MAMM BI W/CAD 08/03/2020 8:02 AM 2. MG STLT MM stereotactic loc LT 07/07/2018 10:22 AM 3. MG DXLT MM Dig mamm DX unilat LT CAD 06/25/2018 3:24 PM 4. MG SCBI MM Dig screening mamm BI w/CAD 06/17/2018 8:42 AM FINDINGS: MAMMOGRAPHY: Breast composition: There are scattered areas of fibroglandular density. Mass: No suspicious mass. Architectural distortion: None. Calcifications: No suspicious calcifications. Asymmetric density: None. Skin thickening: None. Axillary adenopathy: None. IMPRESSION: No mammographic evidence of malignancy. Annual screening is recommended unless otherwise clinically indicated. ASSESSMENT: BI-RADS Category 1: Negative.
== END 2025-03-02 23:59 | disposition home or self-care (01) ==
LOC: RAD 15:51
PROVIDERS: PCP Nurse Practitioner Family; Visit Provider Nurse Practitioner Obstetrics & Gynecology
DX: Z12.31 Encounter for screening mammogram for malignant neoplasm of breast (principal)
CPT/HCPCS: 77063; 77067

== ENCOUNTER 2025-06-23 08:53 | Emergency (ER) | payer OTHER, SELFPAY ==
[2025-06-23] VITALS (9 sets, daily range): BP systolic 126–171; BP diastolic 91–114; PULSE 66–78; RESP 16–22; TEMP 36.9–37.1; O2SAT 96–99; BMI 36.6
--- NOTE | 2025-06-23 09:00 | ECG_ITS ---
APPROVED REPORT Exam: Resting ECG HR:66 bpm ECG Measurements Heart Rate 66 AXES NM 149 P 75 QRSd 98 QRS 24 QT 387 T 41 QTc 401 Conclusion SINUS RHYTHM WITH FREQUENT VENTRICULAR PREMATURE COMPLEXES INCOMPLETE RIGHT BUNDLE BRANCH BLOCK [90+ ms QRS DURATION, TERMINAL R IN V1/V2, 40+ ms S IN I/aVL/V4/V5/V6] ABNORMAL RHYTHM ECG UNCONFIRMED REPORT Normal sinus rhythm. No ST elevation or depression. Occasional PVCs Electronically signed by : JAMES LIMON, 06/24/2025 07:48:32
--- NOTE | 2025-06-23 09:07 | XR_ITS ---
FINAL REPORT CLINICAL HISTORY: Nonspecific chest pain COMPARISON: 11/11/2024 FINDINGS: The heart size is normal. The mediastinum is normal. There is no focal infiltrate or edema. There are no pleural effusions. There is no pneumothorax. There is no osseous abnormality. IMPRESSION: No acute cardiopulmonary process Reviewed, Interpreted and Dictated by Ross Garcia MD Transcribed by Bessy Morin Authenticated and [facility]
--- NOTE | 2025-06-23 09:08 | HMH.EDGENADL ---
Discharge Plan Disposition Patient Disposition: Home, Self-Care Prescriptions Prescriptions: No Action Saccharomyces boulardii [Daily Probiotic (S. boulardii)] 250 mg capsule 250 mg PO BID psyllium husk [Daily Fiber] 0.4 gram capsule 0.4 g PO DAILY cholecalciferol (vitamin D3) 25 mcg (1,000 unit) capsule 25 mcg PO DAILY Mounjaro 2.5 mg/0.5 mL pen injector 2.5 mg SQ WEEKLY Qty: 2.5 0RF Rx Instructions: for 4 weeks dextroamphetamine-amphetamine [Adderall XR] 20 mg capsule,extended release 24hr 20 mg PO DAILY Qty: 30 0RF levothyroxine 50 mcg tablet See Rx Instructions .ROUTE .COMPLEX Qty: 30 11RF Dose Instruction: TAKE ONE TABLET BY MOUTH EVERY DAY FOR THYROID Rx Instructions: TAKE ONE TABLET BY MOUTH EVERY DAY FOR THYROID escitalopram oxalate 10 mg tablet 10 mg PO DAILY Qty: 30 2RF fluconazole 150 mg tablet 150 mg PO Q3D Qty: 2 0RF irbesartan [Avapro] 75 mg Tablet 75 mg PO DAILY Referrals Follow up/Referrals: Brando Elkins MD [Staff Physician, Cardiology] - See instructions Mariel Herron APRN [Primary Care Provider, Family Practice] - See instructions Activity Restrictions/Add. Instructions Additional Instructions/Restrictions: Your workup today does not show a heart attack or blood clot. You do have occasional premature contractions your heart, which could be a side effect of the adderall you have been prescribed. I encourage you to follow-up with your primary care physician regarding this. I will also refer you to cardiology. I encourage you to call their office to schedule an appointment. If you develop any new or worsening symptoms, or if you become concerned for your health for any reason, return to the emergency department for evaluation Clinical Impressions Clinical Impression: Chest pain, Premature ventricular contraction Print Language Print Language: Faroese Discharge ED Provider: Jude Bowie Adult [facility] General Chief complaint: Chest Pain Stated complaint: Chest pressure Time Seen by Provider: 06/23/25 09:00 Mode of Arrival: Ambulatory Source of Information: Patient Description of Symptoms (Recalled from ER Triage Doc. by RN): pt to the ED with intermitten sharp pain in her left chest accompanied by right shoulder blade pain that radiates into her hand. pt reports it started approx. 3 hours ago. pt stated she recently started adderall 3 weeks ago but hasnt taken any today History of Present Illness HPI narrative: Darryl Larkin is a 49-year-old female with past medical history of hypothyroidism, ADD, hyperparathyroidism, who presents to the emergency department for complaints of chest tightness, right shoulder pain. Patient states that starting last night, she noticed discomfort in her right thumb and has since developed discomfort in her right shoulder area. She did state that she feels intermittent thumping and heaviness in her chest that goes up into her neck. She states that starting today, she has developed intermittent left-sided sharp chest pains. She denies any shortness of breath with it. She denies any history of heart attacks or heart failure. She does note that she was recently started on Adderall for her ADD. She denies any nausea, vomiting, diarrhea. She states that she has had a cholecystectomy and hysterectomy in the past. Related Data Home Medications ?Medication ?Instructions ?Recorded ?Confirmed Saccharomyces boulardii 250 mg 250 mg PO BID 10/17/24 05/31/25 capsule (Daily Probiotic (S. boulardii)) psyllium husk 0.4 gram capsule 0.4 g PO DAILY 10/17/24 05/31/25 (Daily Fiber) irbesartan 75 mg tablet (Avapro) 75 mg PO DAILY 11/06/24 05/31/25 cholecalciferol (vitamin D3) 25 25 mcg PO DAILY 11/30/24 05/31/25 mcg (1,000 unit) capsule Previous Rx's ?Medication ?Instructions ?Recorded levothyroxine 50 mcg tablet See Rx Instructions .Route 08/15/24 .COMPLEX #30 tabs tirzepatide 2.5 mg/0.5 mL 2.5 mg (0.5 mL) SQ WEEKLY #2.5 mL 01/16/25 subcutaneous pen injector (Jose Manuel) escitalopram oxalate 10 mg tablet 10 mg PO DAILY #30 tabs 05/18/25 fluconazole 150 mg tablet 150 mg PO Q3D 2 doses #2 tabs 05/18/25 dextroamphetamine-amphetamine ER 20 mg PO DAILY #30 caps 05/31/25 20 mg 24hr capsule,extend release (Adderall XR) Allergies Allergy/AdvReac Type Severity Reaction Status Date / Time cefaclor (From [facility]) Allergy Unknown Verified 05/31/25 09:42 allergy reaction morphine Allergy Chest Pain Verified 05/31/25 09:42 Penicillins Allergy Unknown Verified 05/31/25 09:42 allergy reaction PFSH PFSH Disclaimer: The information contained in this section may have been updated after the patient was seen, as this information can be updated by other users. Medical History Dizziness Bronchitis Encounter for hepatitis C screening test for low risk patient Screening for HIV (human immunodeficiency virus) Elevated parathyroid hormone Hyperparathyroidism Encounter for Routine Gynecological Examination Hoarseness or changing voice Posterior tibial tendinitis, right leg Right ankle swelling Posterior tibial tendinitis, left leg Tear of tendon of right ankle Split longitudinal tear Right Posterior Tibial tendon UTI (urinary tract infection) Attention deficit disorder (ADD) in adult Generalized anxiety disorder Depression Thyroid disease History of gastroesophageal reflux (GERD) Migraine Diverticulitis Uterine hypertrophy Left ovarian cyst Sigmoid diverticulitis Surgical History History of bilateral salpingectomy History of LAVH History of esophagogastroduodenoscopy History of tonsillectomy History of section History of cholecystectomy Family History Other Thyroid disorder Social History Smoking Status: Never smoker second hand exposure: No alcohol intake: never substance use type: denies use current occupational status: employed and other Travel in the last 8 weeks?: None household members: spouse and children housing: house number of children: 3 current occupation: [employer] caffeine: Yes Have you lived/traveled outside [place] in past 30 days?: No Contact w/someone who lives/traveled outside US past 30 days?: No Exposure to someone with infectious disease in past 14 days?: No Do you have a fever (greater than 100.4 F or 38 C)?: No Have you tested positive for COVID-19?: No Exposed to someone with COVID-19 in past 14 days?: No Do you have a sore throat?: No Do you have a cough?: No Do you have any weakness?: No Do you have any diarrhea?: No Are you experiencing any unusual bleeding?: No Do you have any muscle aches/pain?: No Do you have any abdominal pain?: No Are you experiencing loss of taste or smell?: No Other Medical History Have you received the Flu Vaccine for this season: Yes Have you received the Pneumonia Vaccine: Yes ROS Obtained: Yes Systems reviewed as appropriate & no additional complaints except as documented Physical Exam General General appearance: alert and in no apparent distress Head Head exam: atraumatic Eye Eye exam: Present normal appearance ENT ENT exam: Present normal external ear exam Neck Neck exam: Present full ROM Chest Chest inspection: Present symmetric chest wall rise Respiratory Respiratory exam: Present normal lung sounds bilaterally; Absent respiratory distress Cardiovascular Cardiovascular exam: Present regular rate and normal rhythm Abdominal Exam Abdominal exam: Present soft; Absent tenderness or guarding Extremities Exam Extremities exam: Present normal inspection Back Exam Back exam: Present normal inspection Neurological Exam Neurological exam: Present alert and oriented X3 Psychiatric Psychiatric exam: Present normal affect Skin Skin exam: Present warm and dry Medical Decision Making Medical Records Screening: Per USPSTF and CDC recommendations, given the prevalence of disease in our region, it is our hospital?s policy to screen for HIV and viral Hepatitis for all patients aged 18 and over and those with ongoing risk factors. Piotr Inquiry Pt receiving controlled substance: No Vital Signs: 06/23/25 08:55 06/23/25 09:07 06/23/25 09:30 Temperature 98.4 F Temperature Source Oral Pulse Rate 69 72 Pulse Rate [Left Radial] 78 Respiratory Rate 17 17 16 Blood Pressure 155/92 H 130/97 H Blood Pressure [Right Arm] 171/114 H Blood Pressure Mean 128 108 Blood Pressure Mean [Right Arm] 133 Blood Pressure Source [Right Arm] Automatic Cuff Blood Pressure Position [Right Arm] Supine 02 Sat by Pulse Oximetry 98 98 96 Oxygen Delivery Method Room Air Room Air Room Air 06/23/25 10:00 06/23/25 10:30 06/23/25 11:00 Temperature Temperature Source Pulse Rate 74 74 72 Pulse Rate [Left Radial] Respiratory Rate 16 18 18 Blood Pressure 132/95 H 126/91 H 136/98 H Blood Pressure [Right Arm] Blood Pressure Mean 105 104 110 Blood Pressure Mean [Right Arm] Blood Pressure Source [Right Arm] Blood Pressure Position [Right Arm] 02 Sat by Pulse Oximetry 96 97 Oxygen Delivery Method Room Air Room Air 06/23/25 11:30 06/23/25 12:03 Temperature Temperature Source Pulse Rate 66 Pulse Rate [Left Radial] Respiratory Rate 22 16 Blood Pressure 136/96 H 157/100 H Blood Pressure [Right Arm] Blood Pressure Mean 121 Blood Pressure Mean [Right Arm] Blood Pressure Source [Right Arm] Blood Pressure Position [Right Arm] 02 Sat by Pulse Oximetry 99 Oxygen Delivery Method Room Air Lab Data Lab Results 06/23/25 09:06: WBC 6.2, RBC 4.79, Hgb 14.4, Hct 43.2, MCV 90.2, MCH 30.1, MCHC 33.3, RDW 12.1, Plt Count 247, MPV 10.6 H, Neut % (Auto) 44.8, Lymph % (Auto) 44.7, [place] % (Auto) 7.6, Eos % (Auto) 2.1, Baso % (Auto) 0.6, Neut # (Auto) 2.8, Lymph # (Auto) 2.8, [place] # (Auto) 0.5, Eos # (Auto) 0.1, Baso # (Auto) 0.0, D-Dimer 0.65 H, Sodium 138, Potassium 4.1, Chloride 102, Carbon Dioxide 26, Anion Gap 14.1, BUN 16, Creatinine 0.70, Estimated Creat Clear 139, Estimated GFR 89, Est GFR ( Amer) 108, Glucose 112 H, Calcium 8.8, Magnesium 2.0, Total Bilirubin 0.6, AST 33, ALT 21, Alkaline Phosphatase 95, Troponin I < 0.01, NT-Pro-B Natriuret Pep < 20.0, Total Protein 7.7, Albumin 4.6, Globulin 3.1, Albumin/Globulin Ratio 1.5, Serum HCG, Qual Negative 06/23/25 11:46: Troponin I < 0.01 06/23/25 09:06 06/23/25 09:06 Orders (Tests/Meds): ED MEDICATIONS Discontinued Medications Generic Name Dose Route Start Last Admin Trade Name Freq PRN Reason Stop Dose Admin Acetaminophen 1,000 mg 06/23/25 11:49 06/23/25 11:54 Acetaminophen 500mg Tab PO 06/23/25 11:50 1,000 mg ONCE ONE Administration Ibuprofen 600 mg 06/23/25 11:49 06/23/25 11:53 Ibuprofen 600 Mg Tablet PO 06/23/25 11:50 600 mg ONCE ONE Administration ORDERS Category Date Time Status CXR --portable [XR chest portable] Stat Exams 06/23/25 09:07 Completed BNP [NT Pro Brain Natriuretic Pep.] Stat Lab 06/23/25 09:06 Completed CBC w/Auto Diff [Complete Blood Count Auto Diff] Stat Lab 06/23/25 09:06 Completed CMP [Comprehensive Metabolic Panel] Stat Lab 06/23/25 09:06 Completed D-Dimer Stat Lab 06/23/25 09:06 Completed Magnesium Stat Lab 06/23/25 09:06 Completed Serum [HCG Qualitative, Serum] Stat Lab 06/23/25 09:06 Completed Troponin I Q3H Lab 06/23/25 11:46 Completed Troponin I Q3H Lab 06/23/25 15:15 Ordered Troponin I Stat Lab 06/23/25 09:06 Completed ECG Data Tracing #1: I reviewed this ECG and interpreted as documented below: Normal sinus rhythm. Occasional PVCs. No ST elevation or depression noted. QTc normal at 401 Tracing #2: I reviewed this ECG and interpreted as documented below: Normal sinus rhythm with occasional PVCs. No ST elevation or depression. QTc normal at 396 Medical Decision Narrative: Darryl Larkin is a 49-year-old female with past medical history of hypothyroidism, ADD, hyperparathyroidism, hypertension, who presents to the emergency department for complaints of chest tightness, right shoulder pain. Patient states that starting last night, she noticed discomfort in her right thumb and has since developed discomfort in her right shoulder area. She did state that she feels intermittent thumping and heaviness in her chest that goes up into her neck. She states that starting today, she has developed intermittent left-sided sharp chest pains. She denies any shortness of breath with it. She denies any history of heart attacks or heart failure. She does note that she was recently started on Adderall for her ADD. She denies any nausea, vomiting, diarrhea. She states that she has had a cholecystectomy and hysterectomy in the past. On arrival, patient is hypertensive with blood pressure 171/114, heart rate within normal limits, afebrile, breathing comfortably on room air with appropriate oxygen saturation. Physical exam, stated above, revealed an overall well-appearing female in no distress. Cardiopulmonary exam reveals no murmurs, wheezing, rales or rhonchi. Abdomen is soft, nontender nondistended. She has equal pulses to bilateral upper extremities. Differential diagnosis includes, but is not limited to: ACS, pulmonary embolism, aortic dissection, pneumothorax, pulmonary effusion, pneumonia, metabolic derangement, electrolyte derangement, among others. The most morbid conditions were considered and workup was based on these. Workup in the emergency room included: Chest x-ray, EKG, CBC, CMP, magnesium level, troponin, BNP, D-dimer, serum test. EKG, as stated above, showed normal sinus rhythm without ischemic changes. She does have PVCs. Chest x-ray interpreted by me personally demonstrated no focal consolidation, no pneumothorax, no widening of the mediastinum, no cardiomegaly. See final radiology report for details. Laboratory studies demonstrated no leukocytosis, no anemia, platelets normal at 247, electrolytes within normal limits, no HOLLIE, glucose normal at 112. Magnesium normal at 2, initial troponin less than 0.01. Liver enzymes within normal limits. BNP normal at less than 20. Negative test. D-dimer is mildly elevated at 0.65, however is negative for PE by YEARS criteria. At 10:26 AM, patient was placed into ED observation status pending 3-hour repeat troponin. She remained on continuous cardiac monitoring and frequent reassessments during this time. She did have an episode of left shoulder pain down her left arm that was reproducible. Repeat EKG was obtained and showed normal sinus rhythm with occasional PVCs and was unchanged from previous. No ischemic changes. Repeat troponin was also negative. Total time in ED observation was 2 hours and 6 minutes. Given this, is felt that patient is not have any evidence of emergent pathology on today's visit. Some of her symptomology is likely explained by the PBC she is having, may be secondary to the new medication that she was started on. I encouraged her to follow-up with her prescribing physician regarding the symptoms and was given strict return precautions. Will also refer her to cardiology given her symptomatic PVCs. All questions were answered. She demonstrated understanding and was in agreement with this plan. She was then discharged from the emergency department in stable condition. Critical Care Critical Care Time Critical Care Time: No
[2025-06-23 09:13] LABS: Hematocrit 43.2 % (37.0-47.0); Hemoglobin 14.4 g/dL (12.2-16.2); Immature Granulocytes % 0.2 %; Mean Corpuscular HGB Conc 33.3 g/dL (31.8-35.4); Mean Corpuscular Hemoglobin 30.1 pg (27.0-31.2); Mean Corpuscular Volume 90.2 fl (81-99); Nucleated Red Blood Cells % 0 %; Platelet Count 247 K/mm3 (142-424); Red Blood Count 4.79 M/mm3 (4.20-5.40); Red Cell Distribution Width-SD 40.3 fL; White Blood Count 6.2 K/mm3 (4.8-10.8)
[2025-06-23 09:25] LABS: Albumin Level 4.6 g/dl (3.5-5.0); Chloride 102 mmol/L (98-107); Sodium 138 mmol/L (136-145)
[2025-06-23 09:26] LABS: Potassium 4.1 mmoL/L (3.5-5.1)
[2025-06-23 09:28] LABS: Alanine Aminotransferase 21 U/L (12-78); Albumin/Globulin Ratio 1.5 (1.1-1.8); Alkaline Phosphatase 95 U/L (38-126); Anion Gap 14.1 mEq/L (5-15); Aspartate Amino Transferase 33 U/L (14-36); Bilirubin,Total 0.6 mg/dl (0.2-1.3); Blood Urea Nitrogen 16 mg/dl (7-17); Carbon Dioxide 26 mmol/L (22.0-30.0); Creatinine Clearance Estimated 139 mL/min (50-200); Creatinine,Serum 0.70 mg/dl (0.52-1.04); Estimated Glomerular Filt Rate 89 ml/min (>60); GFR (African American) 108 ML/MIN (>60); Globulin 3.1 g/dL (1.3-3.2); Total Protein,Serum 7.7 g/dl (6.3-8.2)
[2025-06-23 09:29] LABS: Calcium 8.8 mg/dl (8.4-10.2); Glucose 112 mg/dl (74-100); Magnesium 2.0 mg/dl (1.6-2.3)
[2025-06-23 09:32] LABS: HCG Qualitative, Serum Negative (Negative)
[2025-06-23 09:37] LABS: NT Pro Brain Natriuretic Pep. < 20.0 pg/mL (0-125)
[2025-06-23 09:40] LABS: Troponin I < 0.01 ng/ml (0.00-0.034)
[2025-06-23 10:17] LABS: D-Dimer 0.65 ug/mL (0.0-0.5)
[2025-06-23] MEDS: IBUPROFEN 600 MG TABLET PO (11:53)
[2025-06-23] MEDS: ACETAMINOPHEN 500MG TAB 1000 MG PO (11:54)
--- NOTE | 2025-06-23 12:00 | ECG_ITS ---
APPROVED REPORT Exam: Resting ECG HR:66 bpm ECG Measurements Heart Rate 66 AXES NJ 160 P 71 QRSd 94 QRS 31 QT 383 T 35 QTc 396 Conclusion SINUS RHYTHM WITH OCCASIONAL VENTRICULAR PREMATURE COMPLEXES POSSIBLE RIGHT VENTRICULAR CONDUCTION DELAY [RSR (QR) IN V1/V2] BORDERLINE ECG UNCONFIRMED REPORT Normal sinus rhythm. No ST elevation or depression. Occasional PVCs. Electronically signed by : JAMES LIMON, 06/24/2025 07:48:14
[2025-06-23 12:27] LABS: Troponin I < 0.01 ng/ml (0.00-0.034)
== END 2025-06-23 12:52 | disposition home or self-care (01) ==
PROVIDERS: Emergency Provider Student in an Organized Health Care Education/Training Program; PCP Nurse Practitioner Family
DX: R07.89 Other chest pain (principal); I49.3 Ventricular premature depolarization; M25.512 Pain in left shoulder
CPT/HCPCS: 71045; 80053; 83735; 83880; 84484; 84703; 85025; 85378; 93005; 99285

== ENCOUNTER 2025-10-25 14:48 | Outpatient (CLI) | payer OTHER, SELFPAY ==
--- NOTE | 2025-10-25 15:00 | US_ITS ---
FINAL REPORT TECHNIQUE: Real-time grayscale and color ultrasound of the thyroid was performed. CLINICAL HISTORY: reoeat us COMPARISON: 10/20/2024 FINDINGS: The thyroid gland measures 41 x 13 x 14 mm on the right and 43 x 14 x 17 mm on the left. The isthmus measures 4 mm. Nodules: Again seen are a multitude of bilateral thyroid nodules. Largest on the right measures 13 x 10 mm, hypoechoic and solid, TR 4. Largest on the left measures 12 x 9 mm, TR 4, solid. These nodules appear similar to the prior study. IMPRESSION: Stable bilateral thyroid nodules, largest are TR 4 measuring less than 15 mm bilaterally. Per TI-RADS criteria, follow-up in 1 year recommended. Reviewed, Interpreted and Dictated by Ross Garcia MD Transcribed by Bessy Morin Authenticated and . [facility]
== END 2025-10-25 23:59 | disposition home or self-care (01) ==
LOC: RAD 14:49
PROVIDERS: PCP Nurse Practitioner Family; Visit Provider Student in an Organized Health Care Education/Training Program
DX: E04.2 Nontoxic multinodular goiter (principal); E03.9 Hypothyroidism, unspecified
CPT/HCPCS: 76536